=== PATIENT | male | born 1990 | race Two or more races ===

== ENCOUNTER 2016-12-12 11:39 | Emergency (ER) | payer OTHER ==
[2016-12-12] MEDS ORDERED: HYDROmorphone 1 MG/ML Syringe IM ONE (12:10)
[2016-12-12] MEDS ORDERED: Ondansetron 4 MG Tab.DIS PO ONE (12:10)
[2016-12-12] MEDS ORDERED: Ketorolac 30 MG/ML SDV IM ONE (12:10)
--- NOTE | 2016-12-12 12:18 | EDM.PDOC ---
ED HPI GENERAL MEDICAL PROBLEM - General Chief Complaint: Lower Extremity Injury/Pain Stated Complaint: RIGHT FOOT/ANKLE PAIN Time Seen by Provider: 12/12/16 12:00 Source of Information: Reports: Patient History Limitations: Reports: No Limitations - History of Present Illness INITIAL COMMENTS - FREE TEXT/NARRATIVE: Patient is a 26-year-old male who presents the ED complaining of pain to the right thigh. Patient states this past he was involved in an accident. Patient states he got his right leg (thigh) pinched between a water pump and a bobcat crushing his leg. He was flown to [place] and was evaluated in the ED. CT of the right upper leg as well as blood work was obtained. No fractures present. He was discharged home on narcotic medications and antiemetics. He's been taking Percocet 2 tabs every 6 hours as needed for pain. In addition was prescribed Keflex 500 mg 4 times a day for 7 days. He's been taking Zofran 1 tab every 6 hours for nausea and vomiting. States he ran out of the Percocet tabs since receiving only 20 with discharge. Pain has been constant waxing waning in intensity. He has been taking aspirin 300 mg twice a day for the pain with little relief. He did suffer an approximately 2 cm laceration to the anterior aspect of his distal thigh and also a 2 cm injury to the medial aspect of his thigh. The anterior laceration required 2 sutures. There is an extensive bruising present with firmness noted to the medial aspect of his leg. He states last night he took a bath and noted some bubbles coming from his wound site. Drainage was blood only. States there is no increased redness or purulent drainage today. There is some increased warmth noted to the site most likely related to the inflammatory process with the bruising. Increase in size noted. Denies any fever/chills, or red streaking up his leg, or any additional complaints. He has been utilizing crutches to ambulate. He is nonweightbearing. He presents to the ER today since he ran out of his pain medications. Right Leg Pain Score (Numeric/FACES): 8 - Related Data Allergies Allergy/AdvReac Type Severity Reaction Status Date / Time antihistamines Allergy Cannot Uncoded 12/12/16 11:47 Remember Home Meds: Home Meds Acetaminophen/oxyCODONE [Percocet 325-5 MG] 1 tab PO Q6H PRN #20 tablet [Rx] Cephalexin [Keflex] 500 mg PO BID 12/12/16 [History] Ondansetron [Zofran] 4 mg PO Q6H PRN #10 tablet 12/12/16 [Rx] Past Medical History - Past Health History Medical/Surgical History: Denies Medical/Surgical History Social & Family History - Tobacco Use Smoking Status *Q: Never Smoker Second Hand Smoke Exposure: No - Caffeine Use Caffeine Use: Reports: None - Recreational Drug Use Recreational Drug Use: No Review of Systems - Review of Systems Review Of Systems: ROS reveals no pertinent complaints other than HPI. ED EXAM, GENERAL - Physical Exam Exam: See Below Exam Limited By: No Limitations General Appearance: Alert, WD/WN, No Apparent Distress Ears: Hearing Grossly Normal Nose: Normal Inspection Throat/Mouth: Normal Voice, No Airway Compromise Neck: Normal Inspection, Supple Respiratory/Chest: No Respiratory Distress, No Accessory Muscle Use Cardiovascular: Normal Peripheral Pulses, Regular Rate, Rhythm Peripheral Pulses: 2+: Posterior Tibial (R) Extremities: Other (2 cm laceration to the anterior distal thigh with [address] present 2 cm laceration to the medial aspect of his distal aspect of his right thigh with scab present. Extensive bruising noted to the medial aspect of his thigh with firmness noted around the wound site. No drainage noted. Increased warmth noted. Mild increase in redness noted. Do not believe it 's infected at this point.) Neurological: Alert, Oriented, CN II-XII Intact, Normal Cognition, No Motor/ Sensory Deficits Psychiatric: Normal Affect, Normal Mood Skin Exam: Warm, Dry Course - Vital Signs Last Recorded V/S: Last Vital Signs Temp 98.4 F 12/12/16 11:48 Pulse 91 12/12/16 11:48 Resp 18 12/12/16 11:48 BP 123/83 12/12/16 11:48 Pulse Ox 98 12/12/16 11:48 - Orders/Labs/Meds Meds: Medications Discontinued Medications Generic Name Dose Route Start Last Admin Trade Name Freq PRN Reason Stop Dose Admin Hydromorphone HCl 1 mg 12/12/16 12:10 12/12/16 12:25 Dilaudid IM 12/12/16 12:11 1 mg ONETIME ONE Administration Ketorolac Tromethamine 30 mg 12/12/16 12:10 12/12/16 12:24 Toradol IM 12/12/16 12:11 30 mg ONETIME ONE Administration Ondansetron HCl 4 mg 12/12/16 12:10 12/12/16 12:24 Zofran Odt PO 12/12/16 12:11 4 mg ONETIME ONE Administration - Re-Assessments/Exams Free Text/Narrative Re-Assessment/Exam: For pain ordered Dilaudid 1 mg IM, Toradol 30 mg IM, and Zofran 4 mg by mouth. Will provide the patient prescription for pain medications. He'll continue on his other prescription medications as prescribed. Discharge instructions as documented. Departure - Departure Time of Disposition: 12:30 Disposition: Home, Self-Care 01 Condition: Good Clinical Impression: Crushing injury of right thigh Qualifiers: Encounter type: subsequent encounter Qualified Code(s): S77.11XD - Crushing injury of right thigh, subsequent encounter Laceration of right thigh Qualifiers: Encounter type: subsequent encounter Qualified Code(s): S71.111D - Laceration without foreign body, right thigh, subsequent encounter - Discharge Information Prescriptions: Acetaminophen/oxyCODONE [Percocet 325-5 MG] 1 tab PO Q6H PRN #20 tablet PRN Reason: Pain Ondansetron [Zofran] 4 mg PO Q6H PRN #10 tablet PRN Reason: Nausea Instructions: Crutch Use, [id number], Pain Medicine Instructions, Easy-to- Read Referrals: [facility] [Primary Care Provider] - Forms: ED Department Discharge Additional Instructions: As discussed continue be nonweightbearing utilize crutches to ambulate. Elevate the affected leg when able to reduce any swelling and pain. Utilize warm compresses and ice in alternating fashion throughout the day. Take Aleve 1-2 tablets twice a day or ibuprofen 600 mg every 6 hours as needed. Take the Percocet tabs as prescribed for severe pain. Take Zofran as needed one tab every 6 hours for nausea. Push the fluids. Eat a balanced diet. Follow-up with orthopedic surgeon when able in the next week or 2 for reevaluation. Return to the ED if you develop any new or worsening symptoms.
== END 2016-12-12 12:30 | disposition home or self-care (01) ==
LOC: JD.ED 11:39
DX: S71.111D Laceration without foreign body, right thigh, subsequent encounter (principal); S77.11XD Crushing injury of right thigh, subsequent encounter; Z88.8 Allergy status to other drugs, medicaments and biological substances; X58.XXXD Exposure to other specified factors, subsequent encounter
CPT/HCPCS: 96372; 99283; A9270; J1170; J1885

== ENCOUNTER 2016-12-20 14:47 | Emergency (ER) | payer OTHER ==
[2016-12-20] MEDS ORDERED: Sodium Chloride 0.9% 10 ML Syringe FLUSH PRN (15:17)
[2016-12-20] MEDS ORDERED: HYDROmorphone 0.5 MG/0.5 ML Syringe IVPUSH ONE (15:17)
[2016-12-20] MEDS ORDERED: Sodium Chloride 0.9% 10 ML Syringe FLUSH ONE (15:26)
[2016-12-20] MEDS ORDERED: Iopamidol 612 MG/ML 150 ML Bottle IVPUSH ONE (15:26)
[2016-12-20] MEDS ORDERED: Sodium Chloride 0.9% 100 ML IV SCH (15:30)
--- NOTE | 2016-12-20 15:48 | EDM.PDOC ---
ED HPI GENERAL MEDICAL PROBLEM - General Chief Complaint: Lower Extremity Injury/Pain Stated Complaint: R LEG INJURY Time Seen by Provider: 12/20/16 15:48 Source of Information: Reports: Patient History Limitations: Reports: No Limitations - History of Present Illness INITIAL COMMENTS - FREE TEXT/NARRATIVE: 26-year-old male presents for evaluation and treatment of an injury to the right medial mid to distal thigh. Original injury occurred on 12-08-16. Patient was at work. He was pinned in between a bobcat and a water pump. He works in [employer]. Reports that he was flown to [place] ED. A CT of the right leg and lab work were obtained. No fractures are found. He was discharged home with narcotic pain medication and Zofran. He was also prescribed Keflex. Reports since being seen continues to have significant pain to the area. He was seen by occupational health today and found to have a large hematoma versus abscess to the area. He has been taking the Keflex but does not feel it is working. He is currently out of pain medication has not taken anything for 3 days. Currently reporting pain to the right medial distal leg with associated numbness over the area. He has not had any fevers, chills, nausea or vomiting. Patient has been utilizing crutches and has been off of work since the accident. Onset: Other (injury occurred on 12-08-16) Location: Reports: Lower Extremity, Right Right Upper Leg Pain Score (Numeric/FACES): 9 - Related Data Allergies Allergy/AdvReac Type Severity Reaction Status Date / Time antihistamines Allergy Cannot Uncoded 12/20/16 14:59 Remember Home Meds: Home Meds Cephalexin [Keflex] 500 mg PO TID 12/12/16 [History] Doxycycline [Vibramycin] 100 mg PO Q12HR #20 cap 12/20/16 [Rx] oxyCODONE 5 mg PO Q4H PRN #20 tablet 12/20/16 [Rx] Past Medical History - Past Health History Medical/Surgical History: Denies Medical/Surgical History Social & Family History - Tobacco Use Smoking Status *Q: Never Smoker Second Hand Smoke Exposure: No - Caffeine Use Caffeine Use: Reports: None - Recreational Drug Use Recreational Drug Use: No Review of Systems - Review of Systems Review Of Systems: See Below Constitutional: Denies: Chills, Fever GI/Abdominal: Denies: Nausea, Vomiting Musculoskeletal: Reports: Leg Pain (right medial mid to lower thigh) Skin: Reports: Wound (3 open fuentes surrounded by a large firm area, likely a hematoma) Neurological: Reports: Numbness (to the suspected hematoma) ED EXAM, GENERAL - Physical Exam Exam: See Below Exam Limited By: No Limitations General Appearance: Alert, WD/WN, No Apparent Distress Respiratory/Chest: No Respiratory Distress Cardiovascular: Normal Peripheral Pulses, Regular Rate, Rhythm Peripheral Pulses: 2+: Posterior Tibial (L), Posterior Tibial (R), Dorsalis Pedis (L), Dorsalis Pedis (R) Extremities: Other (18cm x 10 cm firm, swollen area suspected to be a hematoma with surrounding bruising; 3 clsoed superficial areas to the right medial thigh) Neurological: Alert, Oriented, Normal Cognition Psychiatric: Normal Affect, Normal Mood Skin Exam: Warm, Dry, Normal Color, Ecchymosis, Increased Warmth. No: Erythema Course - Vital Signs Last Recorded V/S: Last Vital Signs Temp 36.7 C 12/20/16 15:00 Pulse 93 12/20/16 15:00 Resp 16 12/20/16 15:00 BP 129/87 12/20/16 15:00 Pulse Ox 98 12/20/16 15:00 - Orders/Labs/Meds Orders: Active Orders 24 hr Category Date Time Status Peripheral IV Care [RC] . DIRECTED Care 12/20/16 15:17 Active CULTURE WOUND [RM] Stat Lab 12/20/16 17:13 Uncollected Piperacillin/Tazobactam [Zosyn] 3.375 gm Med 12/20/16 16:07 Active Sodium Chloride 0.9% [Normal Saline] 100 ml IV NOW Sodium Chloride 0.9% [Normal Saline] 100 ml Med 12/20/16 15:30 Active IV ASDIRECTED Sodium Chloride 0.9% [Saline Flush] Med 12/20/16 15:17 Active 10 ml FLUSH ASDIRECTED PRN Peripheral IV Insertion Adult [OM.PC] Routine Oth 12/20/16 15:17 Ordered Medication Orders Sodium Chloride (Normal Saline) 100 mls @ 60 mls/hr IV ASDIRECTED REPLACED BY [facility] Last Admin: 12/20/16 15:42 Dose: 60 mls/hr Piperacillin Sod/Tazobactam (Sod 3.375 gm/ Sodium Chloride) 100 mls @ 25 mls/ hr IV NOW STA Stop: 12/20/16 20:06 Sodium Chloride (Saline Flush) 10 ml FLUSH ASDIRECTED PRN PRN Reason: Keep Vein Open Last Admin: 12/20/16 16:11 Dose: 10 ml Labs: Laboratory Tests 12/20/16 12/20/16 Range/Units 16:24 16:24 WBC 8.66 (4.23-9.07) K/mm3 RBC 4.80 (4.63-6.08) M/mm3 Hgb 14.1 (13.7-17.5) gm/L Hct 41.2 (40.1-51.0) % MCV 85.8 (79.0-92.2) fl MCH 29.4 (25.7-32.2) pg MCHC 34.2 (32.2-35.5) g/dl RDW Std Deviation 39.4 (35.1-43.9) fL Plt Count 366 H (163-337) K/mm3 MPV 9.3 L (9.4-12.3) fl Neutrophils % (Manual) 69 H (40-60) % Band Neutrophils % 0 (0-10) % Lymphocytes % (Manual) 21 (20-40) % Atypical Lymphs % 0 % Monocytes % (Manual) 9 (2-10) % Eosinophils % (Manual) 1 (0.8-7.0) % Basophils % (Manual) 0 L (0.2-1.2) Platelet Estimate Adequate Plt Morphology Comment Normal RBC Morph Comment Normal Sodium 140 (136-145) mEq/L Potassium 4.2 (3.5-5.1) mEq/L Chloride 102 (98-107) mEq/L Carbon Dioxide 27 (21-32) mEq/L Anion Gap 15.2 H (5-15) BUN 17 (7-18) mg/dL Creatinine 0.8 (0.7-1.3) mg/dL Est Cr Clr Drug Dosing 127.38 mL/min Estimated GFR (MDRD) > 60 (>60) mL/min BUN/Creatinine Ratio 21.3 H (14-18) Glucose 105 (74-106) mg/dL Calcium 9.4 (8.5-10.1) mg/dL Total Bilirubin 0.6 (0.2-1.0) mg/dL AST 23 (15-37) U/L ALT 49 (16-63) U/L Alkaline Phosphatase 81 (46-116) U/L C-Reactive Protein 3.3 H* (<1.0) mg/dL Total Protein 7.8 (6.4-8.2) g/dl Albumin 3.7 (3.4-5.0) g/dl Globulin 4.1 gm/dL Albumin/Globulin Ratio 0.9 L (1-2) Meds: Medications Generic Name Dose Route Start Last Admin Trade Name Freq PRN Reason Stop Dose Admin Sodium Chloride 100 mls @ 60 mls/hr 12/20/16 15:30 12/20/16 15:42 Normal Saline IV 60 mls/hr ASDIRECTED IFEANYI Administration Piperacillin Sod/Tazobactam 100 mls @ 25 mls/hr 12/20/16 16:07 Sod 3.375 gm/ Sodium Chloride IV 12/20/16 20:06 NOW STA Sodium Chloride 10 ml 12/20/16 15:17 12/20/16 16:11 Saline Flush FLUSH 10 ml ASDIRECTED PRN Administration Keep Vein Open Discontinued Medications Generic Name Dose Route Start Last Admin Trade Name Freq PRN Reason Stop Dose Admin Hydromorphone HCl 0.5 mg 12/20/16 15:17 12/20/16 16:08 Dilaudid IVPUSH 12/20/16 15:18 0.5 mg ONETIME ONE Administration Hydromorphone HCl 1 mg 12/20/16 16:48 12/20/16 17:23 Dilaudid IVPUSH 12/20/16 16:49 1 mg ONETIME ONE Administration Clindamycin Phosphate 900 mg/ 106 mls @ 100 mls/hr 12/20/16 16:08 12/20/16 16 :27 Sodium Chloride IV 12/20/16 17:11 100 mls/hr ONETIME ONE Administration Iopamidol 125 ml 12/20/16 15:26 12/20/16 15:42 Isovue-300 (61%) IVPUSH 12/20/16 15:27 125 ml ONETIME ONE Administration Sodium Chloride 10 ml 12/20/16 15:26 12/20/16 15:42 Saline Flush FLUSH 12/20/16 15:27 10 ml ONETIME ONE Administration - Radiology Interpretation Free Text/Narrative:: CT of the right thigh with IV contrast impression per Dr. Sumner 1. Soft tissue air with fair amount of fluid been seen within the medial distal thigh. Fluid presumably represents blood. 2. Low-density within and a portion of the posterior aspect of the vastus medialis muscle suggesting partial muscle disruption. 3. No additional abnormalities seen. CT Results Date: 12/20/16 - Re-Assessments/Exams Free Text/Narrative Re-Assessment/Exam: 12/20/16 17:36 Labs have returned. With blood cell count is within normal limits. CRP is mildly elevated 3.3. Case discussed with Dr. Gautam, orthopedics on-call. Recommended we keep him on the Keflex. He should be doing warm compresses to the area. Nonweightbearing. Continue on the Keflex and he will see him tomorrow in office. I discussed the lab results, CT results and my conversation with Dr. Gautam with the patient. I will add on doxycycline for additional coverage to ensure he is covered for MRSA. Discharge instructions as documented. Departure - Departure Time of Disposition: 18:00 Disposition: Home, Self-Care 01 Condition: Fair Clinical Impression: Hematoma of lower extremity - Discharge Information Prescriptions: Doxycycline [Vibramycin] 100 mg PO Q12HR #20 cap oxyCODONE 5 mg PO Q4H PRN #20 tablet PRN Reason: Pain Referrals: PCP,None [Primary Care Provider] - Aidan Lepe MD [Physician] - Forms: ED Department Discharge Additional Instructions: you were given medication in the ER in the ER that can affect your ability to drive and operate machinery. Do not drive or operate machinery within 12 hours of taking prescription narcotic pain medication. Continue on the Keflex as prescribed. Start doxycycline 1 tab twice a day for 10 days. [id number] ibuprofen for pain relief. May take oxycodone 1-2 tabs every 4- 6 hours as needed for severe pain. Do not drive or operate machinery every 12 hours taking oxycodone. oxycodone can be habit forming, I recommend you take as few as needed to control your pain. Utilize heat to the area. Utilize your crutches. Rest. Keep the foot elevated. Follow-up with Dr. Gautam tomorrow in clinic. Call [phone] at 8am to see what time you should come in tomorrow. inform his staff that you were told to be seen in clinic tomorrow. Please return to the ER if your symptoms change or worsen. - My Orders Last 24 Hours: My Active Orders 12/20/16 15:17 Peripheral IV Care [RC] . DIRECTED Sodium Chloride 0.9% [Saline Flush] 10 ml FLUSH ASDIRECTED PRN Peripheral IV Insertion Adult [OM.PC] Routine 12/20/16 15:30 Sodium Chloride 0.9% [Normal Saline] 100 ml IV ASDIRECTED 12/20/16 16:07 Piperacillin/Tazobactam [Zosyn] 3.375 gm Sodium Chloride 0.9% [Normal Saline] 100 ml IV NOW 12/20/16 17:13 CULTURE WOUND [RM] Stat - Assessment/Plan Last 24 Hours: My Active Orders 12/20/16 15:17 Peripheral IV Care [RC] . DIRECTED Sodium Chloride 0.9% [Saline Flush] 10 ml FLUSH ASDIRECTED PRN Peripheral IV Insertion Adult [OM.PC] Routine 12/20/16 15:30 Sodium Chloride 0.9% [Normal Saline] 100 ml IV ASDIRECTED 12/20/16 16:07 Piperacillin/Tazobactam [Zosyn] 3.375 gm Sodium Chloride 0.9% [Normal Saline] 100 ml IV NOW 12/20/16 17:13 CULTURE WOUND [RM] Stat
[2016-12-20] MEDS ORDERED: Piperacillin/Tazobactam 3.375 GM in Sodium Chloride 0.9% 100 ML IV STA (16:07)
[2016-12-20] MEDS ORDERED: Clindamycin Phosphate 900 MG in Sodium Chloride 0.9% 100 ML IV ONE (16:08)
--- NOTE | 2016-12-20 16:36 | CT ---
CT right thigh Technique: Multiple axial sections were obtained through the right side. Intravenous contrast was utilized. Findings: Soft tissue air identified within the anterior distal thigh. There is low density fluid material being seen at this level of the air as well as superiorly within the medial thigh. There appears to be some disruption of the vastus medialis muscle with small amount of low density material seen posteriorly and medially. Skin thickening is seen medially. No bony abnormality is seen. No contrast extravasation is seen. Impression: 1. Soft tissue air with fair amount of fluid being seen within the medial and distal thigh. Fluid presumably represents blood. 2. Low density within a portion of the posterior aspect of the vastus medialis muscle suggesting partial muscle disruption. 3. No additional abnormality is seen. Diagnostic code #5
[2016-12-20] MEDS ORDERED: HYDROmorphone 1 MG/ML Syringe IVPUSH ONE (16:48)
== END 2016-12-20 18:28 | disposition home or self-care (01) ==
LOC: JD.ED 14:47
DX: S80.11XA Contusion of right lower leg, initial encounter (principal); Z88.8 Allergy status to other drugs, medicaments and biological substances; W23.0XXA Caught, crushed, jammed, or pinched between moving objects, initial encounter; Y92.69 Other specified industrial and construction area as the place of occurrence of the external cause; Y99.0 Civilian activity done for income or pay
CPT/HCPCS: 36415; 73701; 80053; 85025; 86140; 87070; 96365; 96375; 96376; 99284; J1170; J7030; J7050; Q9967

== ENCOUNTER 2018-08-14 07:18 | Inpatient (IN) | payer OTHER ==
[2018-08-14] MEDS ORDERED: Sodium Chloride 0.9% 10 ML Syringe FLUSH PRN (07:44)
[2018-08-14] MEDS ORDERED: Acetaminophen 325 MG Tab PO ONE ×2 (07:45→10:15)
[2018-08-14] MEDS ORDERED: Ketorolac 30 MG/ML SDV IVPUSH SCH (07:45)
[2018-08-14] MEDS ORDERED: Doxycycline 100 MG in Sodium Chloride 0.9% 100 ML IV ONE (07:49)
--- NOTE | 2018-08-14 07:49 | EDM.PDOC ---
ED HPI GENERAL MEDICAL PROBLEM - General Chief Complaint: Lower Extremity Injury/Pain Stated Complaint: Rt leg pain Time Seen by Provider: 08/14/18 07:30 Source of Information: Reports: Patient, Family (spouse) History Limitations: Reports: No Limitations - History of Present Illness INITIAL COMMENTS - FREE TEXT/NARRATIVE: 27-year-old male presents to the ED with right lower extremity pain. He states currently having a good deal of pain in his right inguinal area that radiates down the medial aspect of his right leg and calf to the foot. Patient has been on the road for the last 2 days driving down from [facility] back to [place]. Patient had a crush type injury to the medial aspect of his right distal thigh about 20 months ago which is caused chronic difficulties walking and ambulating due to constant pain in the right lower extremity. I.e. reflex synthetic dystrophy. He has an obvious muscle loss in the distribution of the medial hamstrings and the medial quadriceps musculature. She states she has chronic pain in his right inguinal area and marked difficulties walking up stairs. He has been to physiotherapy and occupational health and has been released to work with limited duties. 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 A crush injury occurred when a bobcat traveling about 2 miles an hour slammed into his right leg with leg up against another metal object causing crush type injury. There was an open laceration across the anterior aspect of his distal thigh that required suture closure. The right lower leg has become infected and at least once if not twice in the past. Currently has fever and chills. Temperature was 101.2 this morning and then as high as 104 recorded by his before coming to the ED. He has not had any Tylenol or Motrin for fever relief. Temperature here is 37.6. Patient does feel warmer than that on palpation. He feels chilled while in the ED. Asking for blankets to keep warm. Onset: Gradual Onset Date: 08/13/18 (Just spent 32 hours driving back from [facility]. Noted some mild discomfort in the medial aspect of his right calf yesterday morning but it is markedly worse with increased erythema and pain proximal medial calf this morning. He also recognized fever and chills yesterday.) Duration: Hour(s):, Getting Worse Location: Reports: Back, Lower Extremity, Right (Right lower extremity especially inguinal area and marked pain to palpation proximal medial right calf.) Quality: Reports: Ache, Burning, Throbbing Severity: Moderate (710) Improves with: Reports: None Worsens with: Reports: Other (Worse with movement and touch can hardly weight- bear on the right side today) Context: Reports: Trauma (Remote trauma 20 months ago to the distal aspect of his right thigh with crush injury and loss of muscle loss to the medial hamstrings and medial quadriceps and suspect femoral nerve injuries. Reflex sympathetic dystrophy type pain). Denies: Activity, Exercise, Lifting, Sick Contact Associated Symptoms: Reports: Fever/Chills (Since yesterday afternoon), Loss of Appetite, Malaise. Denies: Confusion, Chest Pain, Cough, cough w sputum Treatments INSTITUTIONAL CUSTODIAN: Reports: Other (see below) (1.) Right Groin Pain Score (Numeric/FACES): 3 - Related Data Allergies Allergy/AdvReac Type Severity Reaction Status Date / Time antihistamines Allergy Cannot Uncoded 08/14/18 12:19 Remember Home Meds: Home Meds . [No Known Home Meds] 08/14/18 [History] Past Medical History - Past Health History Medical/Surgical History: Denies Medical/Surgical History Musculoskeletal History: Reports: Other (See Below) Other Musculoskeletal History: reports a crest injury Social & Family History - Family History Family Medical History: Noncontributory - Tobacco Use Smoking Status *Q: Never Smoker - Caffeine Use Caffeine Use: Reports: None - Recreational Drug Use Recreational Drug Use: No - Living Situation & Occupation Living situation: Reports: Occupation: Employed Review of Systems - Review of Systems Review Of Systems: See Below Constitutional: Reports: Chills, Fever, Weakness Eyes: Reports: No Symptoms Ears: Reports: No Symptoms Nose: Reports: No Symptoms Mouth/Throat: Reports: No Symptoms Respiratory: Reports: No Symptoms Cardiovascular: Reports: No Symptoms GI/Abdominal: Reports: Other. Denies: Nausea (Pain right inguinal area.), Vomiting Genitourinary: Reports: No Symptoms Musculoskeletal: Reports: Back Pain (Pain right lower back which seems to radiate into the buttock and down the right leg.), Leg Pain (Pain right inguinal area and medial thigh and calf.) Skin: Reports: Erythema (Increased erythema increased warmth proximal medial right calf compatible with cellulitis) Neurological: Reports: Difficulty Walking (Chronic difficulty walking made worse by current infection or cellulitis right leg in the calf and severe pain in the groin.) Psychiatric: Reports: No Symptoms ED EXAM, GENERAL - Physical Exam Exam: See Below Exam Limited By: No Limitations General Appearance: Alert, WD/WN, Mild Distress, Other (Patient is febrile on exam with a resting heart rate of 120/m. O2 sats are 96% on room air. BP is 120 /77) Respiratory/Chest: No Respiratory Distress, Lungs Clear, Normal Breath Sounds, No Accessory Muscle Use Cardiovascular: Normal Peripheral Pulses, No Edema, No Gallop (resting tachycardia of 1 20/m), No Murmur, No Rub, Tachycardia Peripheral Pulses: 2+: Posterior Tibial (L), Posterior Tibial (R), Dorsalis Pedis (L), Dorsalis Pedis (R) GI/Abdominal: Normal Bowel Sounds, Soft, Tender (Patient is very tender along the distribution of the inguinal ligament area with no palpable inguinal adenopathy. I stood him up to assess him for a hernia with invagination of the right scrotum he has a cough impulse but no definitive hernia identified. He has significant pain at the insertion site of the iliopsoas tendon and the abductor lara tendon to a lesser extent.). No: Abnormal Bowel Sounds (Male) Exam: Other (No testicular tenderness) Back Exam: Decreased Range of Motion, Other (Marked pain and tenderness over the C4-C5 facet joints on the right side with overlying muscle spasm. Firm palpation over the C5-S1 level won't aspirate the patient to the floor. He cannot raise his leg off the gurney on his own volition. Limited by pain. I can raise the leg and he has full internal and external rotation of the hip joint without pain and no evidence of a septic joint. Pain is coming from the overlying muscles and tendons I believe the iliopsoas primarily in the inguinal area.) Extremities: Increased Warmth (Patient has a area of increased warmth and tenderness medial proximal right calf that takes up half of the leg. This area is very tender to touch. There is no obvious swelling or open areas or purulent drainage. He seems to be hypersensitive along the medial aspect of the thigh to palpation. Squeezing any of the medial musculature of the right thigh causes exquisite pain.) Neurological: Alert, Oriented, CN II-XII Intact, Normal Cognition, Other ( Calvarium walk) Psychiatric: Normal Affect, Normal Mood Skin Exam: Warm, Dry, Intact, Other (Cellulitis rash medial aspect of the right calf.) Course - Vital Signs Last Recorded V/S: Last Vital Signs Temp 37.6 C 08/14/18 07:26 Pulse 120 H 08/14/18 07:26 Resp 16 08/14/18 07:26 BP 120/77 08/14/18 07:26 Pulse Ox 96 08/14/18 07:26 - Orders/Labs/Meds Orders: Active Orders 24 hr Category Date Time Status Peripheral IV Care [RC] Q2HR Care 08/14/18 07:45 Active CULTURE BLOOD [BC] Stat Lab 08/14/18 08:13 Received CULTURE BLOOD [BC] Stat Lab 08/14/18 08:25 Received Ketorolac [Toradol] Med 08/14/18 07:45 Active 30 mg IVPUSH ONETIME Sodium Chloride 0.9% [Saline Flush] Med 08/14/18 07:44 Active 10 ml FLUSH ASDIRECTED PRN Blood Culture x2 Reflex Set [OM.PC] Stat Oth 08/14/18 07:45 Ordered Peripheral IV Insertion Adult [OM.PC] Stat Oth 08/14/18 07:45 Ordered Medication Orders Ketorolac Tromethamine (Toradol) 30 mg IVPUSH ONETIME [facility] Last Admin: 08/14/18 07:58 Dose: 30 mg Sodium Chloride (Saline Flush) 10 ml FLUSH ASDIRECTED PRN PRN Reason: Keep Vein Open Last Admin: 08/14/18 08:00 Dose: 10 ml Labs: Laboratory Tests 08/14/18 08/14/18 08/14/18 Range/Units 07:55 07:55 07:55 WBC 18.53 H (4.23-9.07) K/mm3 RBC 5.35 (4.63-6.08) M/mm3 Hgb 15.8 D (13.7-17.5) gm/L Hct 46.2 (40.1-51.0) % MCV 86.4 (79.0-92.2) fl MCH 29.5 (25.7-32.2) pg MCHC 34.2 (32.2-35.5) g/dl RDW Std Deviation 40.8 (35.1-43.9) fL Plt Count 259 D (163-337) K/mm3 MPV 9.4 (9.4-12.3) fl Neutrophils % (Manual) 78 H (40-60) % Band Neutrophils % 2 (0-10) % Lymphocytes % (Manual) 13 L (20-40) % Atypical Lymphs % 0 % Monocytes % (Manual) 7 (2-10) % Eosinophils % (Manual) 0 L (0.8-7.0) % Basophils % (Manual) 0 L (0.2-1.2) Platelet Estimate Adequate Plt Morphology Comment Normal RBC Morph Comment Normal ESR 10 (0-15) mm/hr Sodium 137 (136-145) mEq/L Potassium 4.1 (3.5-5.1) mEq/L Chloride 102 (98-107) mEq/L Carbon Dioxide 25 (21-32) mEq/L Anion Gap 14.1 (5-15) BUN 17 (7-18) mg/dL Creatinine 1.1 (0.7-1.3) mg/dL Est Cr Clr Drug Dosing 91.83 mL/min Estimated GFR (MDRD) > 60 (>60) mL/min BUN/Creatinine Ratio 15.5 (14-18) Glucose 117 H (74-106) mg/dL Lactic Acid (0.4-2.0) mmol/L Calcium 9.5 (8.5-10.1) mg/dL Total Bilirubin 0.7 (0.2-1.0) mg/dL AST 16 (15-37) U/L ALT 35 (16-63) U/L Alkaline Phosphatase 76 (46-116) U/L Creatine Kinase (39-308) U/L C-Reactive Protein 2.8 H* (<1.0) mg/dL Total Protein 7.7 (6.4-8.2) g/dl Albumin 4.1 (3.4-5.0) g/dl Globulin 3.6 gm/dL Albumin/Globulin Ratio 1.1 (1-2) 08/14/18 08/14/18 Range/Units 07:55 08:25 WBC (4.23-9.07) K/mm3 RBC (4.63-6.08) M/mm3 Hgb (13.7-17.5) gm/L Hct (40.1-51.0) % MCV (79.0-92.2) fl MCH (25.7-32.2) pg MCHC (32.2-35.5) g/dl RDW Std Deviation (35.1-43.9) fL Plt Count (163-337) K/mm3 MPV (9.4-12.3) fl Neutrophils % (Manual) (40-60) % Band Neutrophils % (0-10) % Lymphocytes % (Manual) (20-40) % Atypical Lymphs % % Monocytes % (Manual) (2-10) % Eosinophils % (Manual) (0.8-7.0) % Basophils % (Manual) (0.2-1.2) Platelet Estimate Plt Morphology Comment RBC Morph Comment ESR (0-15) mm/hr Sodium (136-145) mEq/L Potassium (3.5-5.1) mEq/L Chloride (98-107) mEq/L Carbon Dioxide (21-32) mEq/L Anion Gap (5-15) BUN (7-18) mg/dL Creatinine (0.7-1.3) mg/dL Est Cr Clr Drug Dosing mL/min Estimated GFR (MDRD) (>60) mL/min BUN/Creatinine Ratio (14-18) Glucose (74-106) mg/dL Lactic Acid 2.0 (0.4-2.0) mmol/L Calcium (8.5-10.1) mg/dL Total Bilirubin (0.2-1.0) mg/dL AST (15-37) U/L ALT (16-63) U/L Alkaline Phosphatase (46-116) U/L Creatine Kinase 80 (39-308) U/L C-Reactive Protein (<1.0) mg/dL Total Protein (6.4-8.2) g/dl Albumin (3.4-5.0) g/dl Globulin gm/dL Albumin/Globulin Ratio (1-2) Meds: Medications Generic Name Dose Route Start Last Admin Trade Name Freq PRN Reason Stop Dose Admin Ketorolac Tromethamine 30 mg 08/14/18 07:45 08/14/18 07:58 Toradol IVPUSH 30 mg ONETIME IFEANYI Administration Sodium Chloride 10 ml 08/14/18 07:44 08/14/18 08:00 Saline Flush FLUSH 10 ml ASDIRECTED PRN Administration Keep Vein Open Discontinued Medications Generic Name Dose Route Start Last Admin Trade Name Sophia PRN Reason Stop Dose Admin Acetaminophen 975 mg 08/14/18 07:45 08/14/18 07:57 Tylenol PO 08/14/18 07:46 975 mg NOW ONE Administration Acetaminophen 650 mg 08/14/18 10:15 08/14/18 10:33 Tylenol PO 08/14/18 10:16 650 mg NOW ONE Administration Hydromorphone HCl 1 mg 08/14/18 09:25 08/14/18 09:37 Dilaudid IVPUSH 08/14/18 09:26 1 mg ONETIME ONE Administration Doxycycline Hyclate 100 mg/ 100 mls @ 100 mls/hr 08/14/18 07:49 08/14/18 07: 57 Sodium Chloride IV 08/14/18 08:48 100 mls/hr ONETIME ONE Administration Clindamycin Phosphate 900 mg/ 50 mls @ 100 mls/hr 08/14/18 08:08 08/14/18 09: 22 Premix IV 08/14/18 08:37 100 mls/hr ONETIME ONE Administration Metoclopramide HCl 7.5 mg 08/14/18 09:25 08/14/18 09:37 Reglan IVPUSH 08/14/18 09:26 7.5 mg ONETIME ONE Administration - Radiology Interpretation Free Text/Narrative:: 27-year-old male presents to the ED with acute on chronic pain syndrome right lower extremity. Patient suffered a crush type injury 20 months ago in the workplace with a bobcat rolling down a hill at 2 miles an hour with the bucket striking him in the right medial distal thigh with muscle disruption in the distribution of the medial hamstrings and quadriceps musculature. There was also an open wound across the anterior aspect of the distal thigh that required suture repair at that time. 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 Patient was taken to [facility] in [place] for initial trauma. He remembers having probably a CT angiogram to make sure there is no compromise on supply to his right lower extremity. He doesn't remember ever having an MRI of his right lower extremity. Patient has been seen by Dr. Caban--orthopedic surgeon at least once in the past. He is being followed through occupational health and safety clinic by Dr. Garibay. He is also been through a physiotherapy program and this is been curtailed as there is nothing further they can do for him. History suggests that he has chronic pain in his right inguinal area and right medial thigh compatible with neurological injury and clinically has reflex sympathetic dystrophy. He has had infection in the leg at least once in the past. He presents once again with fever chills of one day duration and evidence of cellulitis left lower extremity proximal medial calf. Plan septic workup will be done. He will be given doxepin 100 mg IV and clindamycin [address] of his lower back will be obtained as well as pelvis. His pain is in the distribution of the iliopsoas muscle literature and 10 at present and then medial right calf. - Re-Assessments/Exams Free Text/Narrative Re-Assessment/Exam: 08/14/18 09:15 Labs are back. Total white count is markedly elevated at 18.53 with a left shift of 70% neutrophils and 2% bands. Hemoglobin is 15.8 with hematocrit of 46.2. Platelet count is 259,000. Sodium 137 with potassium of 4.1. Chloride 102 with a bicarbonate of 25. Anion gap is normal at 14.1. BUNs 17. Creatinine is 1.1 with GFR greater than 60. Glucose 117 with a calcium of 9.5. Liver function normal C-reactive protein mildly elevated at 2.8. Total protein is 7.7 albumin fraction 4.1. 08/14/18 09:25 patient is experiencing mild nausea and still having significant pain in spite of the Toradol IV. Will therefore give him Reglan 7.5 mg IV and Dilaudid 1 mg IV for pain relief. CT reports are now back. The CT of the lumbar spine reveals no abnormalities of L1 to L4 vertebral. At the L5-S1 level there is a disc herniation posterior laterally at L5-S1 to the right of the midline touching the right S1 nerve root. No central canal stenosis or neural foraminal stenosis is seen. Slight posterior osteophytes are also noted to the right of the midline. At T12-L1 level posterior disc is minimally narrowed. Posterior disc is preserved. No central canal stenosis or neural foraminal stenosis is seen. On CT of the pelvis there are some degenerative changes noted at the L5-S1 as described on the lumbar spine CT but nothing further identified in the right inguinal area and particularly no signs of inguinal hernia. Omental on adenopathy in the right groin. Awaiting further labs such as lactic acid and CPK and sedimentation rate. 08/14/18 09:50 Further labs are now available. Sedimentation rate is 10. Lactic acid it is 2.0. Total CPK is normal at 80. Therefore no convincing laboratory evidence of necrotizing fasciitis. He did vomit once while in the ED. He thinks the Tylenol may have come back up. Will repeat the Tylenol 975 mg in about 10 minutes time once the Reglan since to be effective at this point time I will arrange admission to the hospital since it's unclear whether he can keep down the antibiotics. Believe that he needs further investigation by way of MRI of his lumbar spine to identify whether there is significant disc herniation causing nerve root entrapment as part of his right leg pain syndrome. Also MRI of his entire right thigh is probably indicated if he has not been done in the past identify soft tissue muscle and nerve damage. Will likely need permission from either the [place] or work force safety as injury to his right lower extremity was work-related 20 months ago. Will be treated for suspect MRSA infection since he's had an infection in the leg before. Suggest continuing doxycycline orally for about a month after leaving hospital to try and clear up MRSA in his skin or subcutaneous soft tissues since he's had recurrent infections. Will discuss case with reclamation engineer hospitalist Dr. Poe with a view to admission to the hospital. 08/14/18 10:[address] Poe -hospitalist and he has accepted the patient to the med surgery floor on telemetry. Repeated Tylenol 650 mg by mouth as it is felt that he probably vomited up the initial 975 mg provided to him for fever relief. 08/14/18 11:05: Patient reports to the nurses that he vomited up the 650 mg of Tylenol given to him for fever relief as well. Departure - Departure Time of Disposition: 12:00 Disposition: Admitted As Inpatient 67 Condition: Fair Clinical Impression: Cellulitis of right lower leg, Chronic pain of right inguinal region, Herniation of intervertebral disc between L5 and S1, Reflex sympathetic dystrophy of right leg, Acute febrile illness, Nausea and vomiting in adult patient - Discharge Information *PRESCRIPTION DRUG MONITORING PROGRAM REVIEWED*: No *COPY OF PRESCRIPTION DRUG MONITORING REPORT IN PATIENT MATHEW: No - My Orders Last 24 Hours: My Active Orders 08/14/18 07:44 Sodium Chloride 0.9% [Saline Flush] 10 ml FLUSH ASDIRECTED PRN 08/14/18 07:45 Peripheral IV Care [RC] Q2HR Ketorolac [Toradol] 30 mg IVPUSH ONETIME Blood Culture x2 Reflex Set [OM.PC] Stat Peripheral IV Insertion Adult [OM.PC] Stat 08/14/18 08:13 CULTURE BLOOD [BC] Stat 08/14/18 08:25 CULTURE BLOOD [BC] Stat - Assessment/Plan Last 24 Hours: My Active Orders 08/14/18 07:44 Sodium Chloride 0.9% [Saline Flush] 10 ml FLUSH ASDIRECTED PRN 08/14/18 07:45 Peripheral IV Care [RC] Q2HR Ketorolac [Toradol] 30 mg IVPUSH ONETIME Blood Culture x2 Reflex Set [OM.PC] Stat Peripheral IV Insertion Adult [OM.PC] Stat 08/14/18 08:13 CULTURE BLOOD [BC] Stat 08/14/18 08:25 CULTURE BLOOD [BC] Stat
[2018-08-14] MEDS ORDERED: Clindamycin Phosphate in D5W 900 MG in Premix Bag 1 BAG IV ONE ×2 (08:08)
--- NOTE | 2018-08-14 09:15 | CT ---
CT lumbar spine Technique: Multiple axial sections were obtained from the mid T12 vertebral body inferiorly through the L5-S1 disc. Reconstructed sagittal and coronal images were reviewed. Comparison: No prior lumbar spine imaging is available. Findings: T12-L1: Posterior disc is minimally narrowed. Posterior disc is preserved. No central canal stenosis or neural foraminal stenosis is seen. L1-L2: Posterior disc is preserved. No central canal stenosis or neural foraminal stenosis is seen. L2-L3: Posterior disc is preserved. No central canal stenosis or neural foraminal stenosis is seen. L3-L4: Posterior disc is preserved. No central canal stenosis or neural foraminal stenosis is seen. L4-L5: Posterior disc is preserved. No central canal stenosis or neural foraminal stenosis is seen. L5-S1: Probable small disc herniation posterolaterally at L5-S1 to the right of midline touching the right S1 nerve root. No central canal stenosis or neural foraminal stenosis is seen. Slight posterior osteophytes are also noted to the right of midline. No fracture is appreciated. No abnormal subluxation is seen. Impression: 1. Possible disc herniation posterolaterally at L5-S1 to the right of midline. Adjacent endplate osteophytes are seen. Findings likely cause compromise upon the right S1 nerve root. MRI would be helpful to confirm this finding. 2. Slight disc space narrowing at T12-L1. 3. CT lumbar spine study is otherwise unremarkable. Diagnostic code #3
--- NOTE | 2018-08-14 09:15 | CT ---
CT pelvis Technique: Multiple axial sections were obtained from above the iliac crests inferiorly through the pubic symphysis. Intravenous contrast was not utilized. Findings: No intrapelvic abnormality is seen. Appendix is normal. No free fluid is seen. No soft tissue swelling is seen. No fracture is seen within either hip. Sacroiliac joints appear within normal limits. No pelvic fracture is appreciated. Degenerative change at L5-S1 described on previous lumbar spine study. Impression: 1. Degenerative change noted at L5-S1 described on previous lumbar spine exam. 2. Nothing acute is seen on CT study of the pelvis. Diagnostic code #2
[2018-08-14] MEDS ORDERED: HYDROmorphone 1 MG/ML Syringe IVPUSH ONE (09:25)
[2018-08-14] MEDS ORDERED: Metoclopramide 10 MG/2 ML SDV IVPUSH ONE (09:25)
[2018-08-14] MEDS ORDERED: Ondansetron 4 MG/2 ML SDV IV PRN (13:09)
[2018-08-14] MEDS ORDERED: Ondansetron 4 MG Tab.DIS PO PRN (13:09)
--- NOTE | 2018-08-14 13:21 | PCM.HP ---
H&P History of Present Illness - General Date of Service: 08/14/18 Admit Problem/Dx: Admission Diagnosis/Problem Admission Diagnosis/Problem Acute febrile illness Source of Information: Patient, Provider - History of Present Illness Initial Comments - Free Text/Narative: 27-year-old male presented to the emergency room with right lower extremity pain and swelling. He states that he recently traveled by car over the last 2 days from [facility] to [place]. Patient developed worsening left lower extremity redness on the medial aspect of his calf. He also has severe right inguinal pain. Patient has a history of a crush injury to the right leg and chronic pain secondary to reflex sympathetic dystrophy. Patient had a fever of 101.2 this morning and then as high as 104 prior to coming to the emergency room. Temperature in the emergency room was 99.7F. 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 Patient did spend 32 hours driving back from [facility] over the last 2 days. In the emergency room his white count was found to be 18.53 with a left shift. Only 2% bandemia. C-reactive protein was 2.8 with a normal lactic acid of 2.0. Patient was given Dilaudid for pain, and doxycycline and clindamycin IV. He states his pain is improved. Unfortunately, Dilaudid caused nausea. Patient was given Reglan with minimal improvement. Patient has been hospitalized 2 separate times for very similar symptoms which both were treated as cellulitis. First time was a couple weeks after his crush injury on the same leg and then 1 year later. Both treated in this facility. CT of his lumbar spine did show a possible nerve compression at L5-S1. This does not corresponding to his pain in his groin. Location: Reports: Lower Extremity, Right Right Groin Pain Score (Numeric/FACES): 3 Headache Pain Score (Numeric/FACES): 8 - Related Data Allergies/Adverse Reactions: Allergies Allergy/AdvReac Type Severity Reaction Status Date / Time antihistamines Allergy Cannot Uncoded 08/14/18 12:19 Remember Home Medications: Home Meds . [No Known Home Meds] 08/14/18 [History] Past Medical History - Past Health History Medical/Surgical History: Denies Medical/Surgical History HEENT History: Reports: Allergic Rhinitis Cardiovascular History: Reports: Heart Murmur Gastrointestinal History: Reports: Inflammatory Bowel Disease, Other (See Below) Other Gastrointestinal History: ischemic colitis, polyp with removal Musculoskeletal History: Reports: Other (See Below) Other Musculoskeletal History: reports a crest injury Dermatologic History: Reports: Cellulitis Other Dermatologic History: R calf/michelle history of infection Social & Family History - Family History Family Medical History: Noncontributory - Tobacco Use Smoking Status *Q: Never Smoker Years of Tobacco use: 4 Packs/Tins Daily: 1 Used Tobacco, but Quit: Yes Month/Year Tobacco Last Used: Feb 2013 Second Hand Smoke Exposure: No - Caffeine Use Caffeine Use: Reports: None - Recreational Drug Use Recreational Drug Use: No - Living Situation & Occupation Living situation: Reports: Occupation: Employed H&P Review of Systems - Review of Systems: Review Of Systems: ROS reveals no pertinent complaints other than HPI. Exam - Exam Exam: See Below - Vital Signs Vital Signs: Last Vital Signs Temp 99.7 F 08/14/18 07:26 Pulse 120 H 08/14/18 07:26 Resp 16 08/14/18 07:26 BP 120/77 08/14/18 07:26 Pulse Ox 96 08/14/18 07:26 Weight: 189 lb 9.6 oz - Exam Quality Assessment: No: Supplemental Oxygen General: Alert, Oriented HEENT: Conjunctiva Clear, Mucosa Moist & [place], Posterior Pharynx Clear Neck: Supple, Trachea Midline Lungs: Clear to Auscultation, Normal Respiratory Effort Cardiovascular: Regular Rate, Regular Rhythm GI/Abdominal Exam: Normal Bowel Sounds, Soft, Non-Tender, No Distention Extremities: No Pedal Edema, Increased Warmth (Right lower extremity medial calf ), Other (Right groin there is a rope like painful area just lateral to the femoral artery) Skin: Rash (Circular red area with satellite lesions with erythema and warmth. Tender to palpation.) Neuro Extensive - Motor, Sensory, Reflexes: CN II-XII Intact Psychiatric: Alert, Normal Affect, Normal Mood - Patient Data Lab Results Last 24 hrs: Laboratory Results - last 24 hr 08/14/18 08/14/18 08/14/18 Range/Units 07:55 07:55 07:55 WBC 18.53 H (4.23-9.07) K/mm3 RBC 5.35 (4.63-6.08) M/mm3 Hgb 15.8 D (13.7-17.5) gm/L Hct 46.2 (40.1-51.0) % MCV 86.4 (79.0-92.2) fl MCH 29.5 (25.7-32.2) pg MCHC 34.2 (32.2-35.5) g/dl RDW Std Deviation 40.8 (35.1-43.9) fL Plt Count 259 D (163-337) K/mm3 MPV 9.4 (9.4-12.3) fl Neutrophils % (Manual) 78 H (40-60) % Band Neutrophils % 2 (0-10) % Lymphocytes % (Manual) 13 L (20-40) % Atypical Lymphs % 0 % Monocytes % (Manual) 7 (2-10) % Eosinophils % (Manual) 0 L (0.8-7.0) % Basophils % (Manual) 0 L (0.2-1.2) Platelet Estimate Adequate Plt Morphology Comment Normal RBC Morph Comment Normal ESR 10 (0-15) mm/hr Sodium 137 (136-145) mEq/L Potassium 4.1 (3.5-5.1) mEq/L Chloride 102 (98-107) mEq/L Carbon Dioxide 25 (21-32) mEq/L Anion Gap 14.1 (5-15) BUN 17 (7-18) mg/dL Creatinine 1.1 (0.7-1.3) mg/dL Est Cr Clr Drug Dosing 91.83 mL/min Estimated GFR (MDRD) > 60 (>60) mL/min BUN/Creatinine Ratio 15.5 (14-18) Glucose 117 H (74-106) mg/dL Lactic Acid (0.4-2.0) mmol/L Calcium 9.5 (8.5-10.1) mg/dL Total Bilirubin 0.7 (0.2-1.0) mg/dL AST 16 (15-37) U/L ALT 35 (16-63) U/L Alkaline Phosphatase 76 (46-116) U/L Creatine Kinase (39-308) U/L C-Reactive Protein 2.8 H* (<1.0) mg/dL Total Protein 7.7 (6.4-8.2) g/dl Albumin 4.1 (3.4-5.0) g/dl Globulin 3.6 gm/dL Albumin/Globulin Ratio 1.1 (1-2) 08/14/18 08/14/18 Range/Units 07:55 08:25 WBC (4.23-9.07) K/mm3 RBC (4.63-6.08) M/mm3 Hgb (13.7-17.5) gm/L Hct (40.1-51.0) % MCV (79.0-92.2) fl MCH (25.7-32.2) pg MCHC (32.2-35.5) g/dl RDW Std Deviation (35.1-43.9) fL Plt Count (163-337) K/mm3 MPV (9.4-12.3) fl Neutrophils % (Manual) (40-60) % Band Neutrophils % (0-10) % Lymphocytes % (Manual) (20-40) % Atypical Lymphs % % Monocytes % (Manual) (2-10) % Eosinophils % (Manual) (0.8-7.0) % Basophils % (Manual) (0.2-1.2) Platelet Estimate Plt Morphology Comment RBC Morph Comment ESR (0-15) mm/hr Sodium (136-145) mEq/L Potassium (3.5-5.1) mEq/L Chloride (98-107) mEq/L Carbon Dioxide (21-32) mEq/L Anion Gap (5-15) BUN (7-18) mg/dL Creatinine (0.7-1.3) mg/dL Est Cr Clr Drug Dosing mL/min Estimated GFR (MDRD) (>60) mL/min BUN/Creatinine Ratio (14-18) Glucose (74-106) mg/dL Lactic Acid 2.0 (0.4-2.0) mmol/L Calcium (8.5-10.1) mg/dL Total Bilirubin (0.2-1.0) mg/dL AST (15-37) U/L ALT (16-63) U/L Alkaline Phosphatase (46-116) U/L Creatine Kinase 80 (39-308) U/L C-Reactive Protein (<1.0) mg/dL Total Protein (6.4-8.2) g/dl Albumin (3.4-5.0) g/dl Globulin gm/dL Albumin/Globulin Ratio (1-2) Result Diagrams: 08/15/18 04:21 08/15/18 04:21 - Problem List (1) Cellulitis of right lower leg SNOMED Code(s): 473574571 ICD Code: L03.115 - CELLULITIS OF RIGHT LOWER LIMB Status: Acute Current Visit: Yes (2) Chronic pain of right inguinal region SNOMED Code(s): 559010044 ICD Code: R10.31 - RIGHT LOWER QUADRANT PAIN; G89.29 - OTHER CHRONIC PAIN Status: Acute Current Visit: Yes (3) Reflex sympathetic dystrophy of right leg SNOMED Code(s): 524620074 ICD Code: G90.521 - COMPLEX REGIONAL PAIN SYNDROME I OF RIGHT LOWER LIMB Status: Acute Current Visit: Yes Problem List Initiated/Reviewed/Updated: Yes Orders Last 24hrs: Active Orders 24 hr Category Date Time Status Admission Status [Patient Status] [ADT] Routine ADT 08/14/18 10:22 Active Oxygen Therapy [RC] PRN Care 08/14/18 13:09 Ordered Peripheral IV Care [RC] Q2HR Care 08/14/18 07:45 Active Up ad Stefanie [RC] ASDIRECTED Care 08/14/18 13:09 Ordered VTE/DVT Education [RC] PER UNIT ROUTINE Care 08/14/18 13:09 Ordered Vital Signs [RC] Q4H Care 08/14/18 13:09 Ordered Regular Diet [DIET] Diet 08/14/18 Lunch Ordered Venous Doppler Lwr Ext Bi [US] Routine Exams 08/14/18 13:08 Ordered C-REACTIVE PROTEIN [CHEM] AM Lab 08/15/18 05:11 Ordered CBC WITH AUTO DIFF [HEME] AM Lab 08/15/18 05:11 Ordered COMPREHENSIVE METABOLIC PN,CMP [CHEM] AM Lab 08/15/18 05:11 Ordered CULTURE BLOOD [BC] Stat Lab 08/14/18 08:13 Received CULTURE BLOOD [BC] Stat Lab 08/14/18 08:25 Received MAGNESIUM [CHEM] AM Lab 08/15/18 05:11 Ordered Enoxaparin [Lovenox] Med 08/15/18 09:00 Ordered 40 mg SUBCUT DAILY Ibuprofen [Motrin] Med 08/14/18 13:09 Ordered 600 mg PO Q6H PRN Ondansetron [Zofran ODT] Med 08/14/18 13:09 Ordered 4 mg PO Q4H PRN Ondansetron [Zofran] Med 08/14/18 13:09 Ordered 4 mg IV Q4H PRN Sodium Chloride 0.9% [Saline Flush] Med 08/14/18 07:44 Active 10 ml FLUSH ASDIRECTED PRN oxyCODONE Med 08/14/18 13:09 Ordered 5 mg PO Q4H PRN Blood Culture x2 Reflex Set [OM.PC] Stat Ot 08/14/18 07:45 Ordered Peripheral IV Insertion Adult [OM.PC] Stat Ot 08/14/18 07:45 Ordered Resuscitation Status Routine Resus Stat 08/14/18 12:20 Ordered Medication Orders Enoxaparin Sodium (Lovenox) 40 mg SUBCUT DAILY IFEANYI Ibuprofen (Motrin) 600 mg PO Q6H PRN PRN Reason: Pain (moderate 4-6) Ondansetron HCl (Zofran Odt) 4 mg PO Q4H PRN PRN Reason: nausea, able to take PO Ondansetron HCl (Zofran) 4 mg IV Q4H PRN PRN Reason: Nausea/Vomiting Oxycodone HCl (Oxycodone) 5 mg PO Q4H PRN PRN Reason: Pain (moderate 4-6) Sodium Chloride (Saline Flush) 10 ml FLUSH ASDIRECTED PRN PRN Reason: Keep Vein Open Last Admin: 08/14/18 08:00 Dose: 10 ml Assessment/Plan Comment:: Assessment * Right lower extremity cellulitis * Right inguinal pain/tenderness * Low back pain with possible herniated L5-S1 plan * Switch antibiotics to vancomycin * Get Doppler ultrasounds of the right upper extremity to rule out DVT * Follow-up as an outpatient for possible MRI of the lumbar spine. * Follow CBC and C-reactive protein daily * Plan 48-72 hours of IV vancomycin prior to discharge. * CODE STATUS full code
--- NOTE | 2018-08-14 14:32 | US ---
Bilateral lower extremity deep venous ultrasound: Duplex and color flow imaging was obtained of the right and left common femoral, proximal greater saphenous, superficial femoral, popliteal, posterior tibial and peroneal veins. Comparison: No prior venous imaging. Findings: Normal-appearing lymph nodes are seen within both inguinal regions. Normal phasic flow, augmentation and compression is seen. Impression: 1. No evidence of deep venous thrombosis is seen within the right or left lower extremities. Diagnostic code #1
[2018-08-14] MEDS ORDERED: Vancomycin 1.75 GM in Sodium Chloride 0.9% 500 ML IV ONE (18:15)
[2018-08-14] MEDS: oxyCODONE 5 MG Tab PO PRN (19:45)
[2018-08-14] MEDS ORDERED: Lactated Ringers 500 ML IV ONE (20:55)
[2018-08-14] MEDS ORDERED: Benzonatate 100 MG Cap PO PRN (20:56)
[2018-08-14] MEDS ORDERED: Lactated Ringers 1,000 ML IV SCH (21:00)
[2018-08-14] MEDS: Ibuprofen 600 MG Tab PO PRN (21:08)
[2018-08-15] MEDS: Ibuprofen 600 MG Tab PO PRN (05:46)
[2018-08-15] MEDS: Enoxaparin 40 MG/0.4 ML Syringe SUBCUT SCH (09:02)
--- NOTE | 2018-08-15 11:13 | PCM.PN ---
- General Info Date of Service: 08/15/18 Admission Dx/Problem (Free Text): Admission Diagnosis/Problem Admission Diagnosis/Problem Acute febrile illness Subjective Update: Patient had an episode of tachycardia last night around 1999. Temperature of the time was 100.9 Patient received 1 L bolus and was started on 100 mL of LR overnight. Patient is doing much better this morning and is afebrile. Patient does complain of some headache. Also states he had some nausea from the oxycodone and Dilaudid. - Review of Systems General: Reports: Fever HEENT: Reports: No Symptoms Pulmonary: Reports: Cough. Denies: Shortness of Breath Cardiovascular: Reports: No Symptoms, Dyspnea on Exertion. Denies: Chest Pain Neurological: Reports: No Symptoms. Denies: Confusion - Patient Data Vitals - Most Recent: Last Vital Signs Temp 98.1 F 08/15/18 04:32 Pulse 77 08/15/18 04:32 Resp 16 08/15/18 04:32 BP 116/70 08/15/18 04:36 Pulse Ox 95 08/15/18 06:13 Weight - Most Recent: 189 lb 9.6 oz I&O - Last 24 Hours: Intake & Output 08/14/18 08/15/18 08/15/18 22:59 06:59 14:59 Intake Total 150 2776 Output Total 1000 Balance 150 1776 Lab Results Last 24 Hours: Laboratory Results - last 24 hr 08/14/18 08/15/18 08/15/18 Range/Units 15:05 04:21 04:21 WBC 9.48 H (4.23-9.07) K/mm3 RBC 4.76 (4.63-6.08) M/mm3 Hgb 14.2 D (13.7-17.5) gm/L Hct 42.1 (40.1-51.0) % MCV 88.4 (79.0-92.2) fl MCH 29.8 (25.7-32.2) pg MCHC 33.7 (32.2-35.5) g/dl RDW Std Deviation 42.6 (35.1-43.9) fL Plt Count 206 (163-337) K/mm3 MPV 9.3 L (9.4-12.3) fl Neut % (Auto) 66.9 (34.0-67.9) % Lymph % (Auto) 22.8 (21.8-53.1) % [place] % (Auto) 9.6 (5.3-12.2) % Eos % (Auto) 0.5 L (0.8-7.0) Baso % (Auto) 0.2 (0.1-1.2) % Neut # (Auto) 6.34 H (1.78-5.38) K/mm3 Lymph # (Auto) 2.16 (1.32-3.57) K/mm3 [place] # (Auto) 0.91 H (0.30-0.82) K/mm3 Eos # (Auto) 0.05 (0.04-0.54) K/mm3 Baso # (Auto) 0.02 (0.01-0.08) K/mm3 Sodium 139 (136-145) mEq/L Potassium 3.9 (3.5-5.1) mEq/L Chloride 107 (98-107) mEq/L Carbon Dioxide 26 (21-32) mEq/L Anion Gap 9.9 (5-15) BUN 12 (7-18) mg/dL Creatinine 0.9 (0.7-1.3) mg/dL Est Cr Clr Drug Dosing 112.24 mL/min Estimated GFR (MDRD) > 60 (>60) mL/min BUN/Creatinine Ratio 13.3 L (14-18) Glucose 105 (74-106) mg/dL Lactic Acid 1.2 (0.4-2.0) mmol/L Calcium 8.5 (8.5-10.1) mg/dL Magnesium 1.8 (1.8-2.4) mg/dl Total Bilirubin 0.5 (0.2-1.0) mg/dL AST 21 (15-37) U/L ALT 37 (16-63) U/L Alkaline Phosphatase 65 (46-116) U/L C-Reactive Protein 15.3 H* (<1.0) mg/dL Total Protein 6.3 L (6.4-8.2) g/dl Albumin 3.1 L (3.4-5.0) g/dl Globulin 3.2 gm/dL Albumin/Globulin Ratio 1.0 (1-2) Ray Results Last 24 Hours: Microbiology 08/14/ 08:25 Aerobic Blood Culture - Preliminary Blood - Venous - Lab Draw NO GROWTH AFTER 1 DAY Anaerobic Blood Culture - Preliminary NO GROWTH AFTER 1 DAY 08/14/18 08:13 Aerobic Blood Culture - Preliminary Blood - Venous NO GROWTH AFTER 1 DAY Anaerobic Blood Culture - Preliminary NO GROWTH AFTER 1 DAY Med Orders - Current: Current Medications Benzonatate (Tessalon Perles) 100 mg PO TID PRN PRN Reason: Cough Last Admin: 08/14/18 21:10 Dose: 100 mg Enoxaparin Sodium (Lovenox) 40 mg SUBCUT DAILY [facility] Last Admin: 08/15/18 09:02 Dose: 40 mg Vancomycin HCl 1 gm/ Sodium (Chloride) 250 mls @ 250 mls/hr IV Q8H IFEANYI Last Admin: 08/15/18 04:26 Dose: 250 mls/hr Ibuprofen (Motrin) 600 mg PO Q6H PRN PRN Reason: Pain (moderate 4-6) Last Admin: 08/15/18 05:46 Dose: 600 mg Ondansetron HCl (Zofran Odt) 4 mg PO Q4H PRN PRN Reason: nausea, able to take PO Last Admin: 08/14/18 15:28 Dose: 4 mg Ondansetron HCl (Zofran) 4 mg IV Q4H PRN PRN Reason: Nausea/Vomiting Oxycodone HCl (Oxycodone) 5 mg PO Q4H PRN PRN Reason: Pain (moderate 4-6) Last Admin: 08/14/18 19:45 Dose: 5 mg Sodium Chloride (Saline Flush) 10 ml FLUSH ASDIRECTED PRN PRN Reason: Keep Vein Open Last Admin: 08/14/18 08:00 Dose: 10 ml Tramadol HCl (Ultram) 100 mg PO Q6H PRN PRN Reason: Pain Vancomycin HCl (Pharmacy To Dose - Vancomycin) 0 dose .XX ASDIRECTED PRN PRN Reason: RX TO DOSE VANCO Discontinued Medications Acetaminophen (Tylenol) 975 mg PO NOW ONE Stop: 08/14/18 07:46 Last Admin: 08/14/18 07:57 Dose: 975 mg Acetaminophen (Tylenol) 650 mg PO NOW ONE Stop: 08/14/18 10:16 Last Admin: 08/14/18 10:33 Dose: 650 mg Hydromorphone HCl (Dilaudid) 1 mg IVPUSH ONETIME ONE Stop: 08/14/18 09:26 Last Admin: 08/14/18 09:37 Dose: 1 mg Doxycycline Hyclate 100 mg/ (Sodium Chloride) 100 mls @ 100 mls/hr IV ONETIME ONE Stop: 08/14/18 08:48 Last Admin: 08/14/18 07:57 Dose: 100 mls/hr Clindamycin Phosphate 900 mg/ (Premix) 50 mls @ 100 mls/hr IV ONETIME ONE Stop: 08/14/18 08:37 Last Admin: 08/14/18 09:22 Dose: 100 mls/hr Vancomycin HCl 1.75 gm/ Sodium (Chloride) 500 mls @ 250 mls/hr IV ONETIME ONE Stop: 08/14/18 20:14 Last Admin: 08/14/18 19:41 Dose: 250 mls/hr Lactated Ringer's (Ringers, Lactated) 500 mls @ 500 mls/hr IV BOLUS ONE Stop: 08/14/18 21:54 Last Admin: 08/14/18 21:10 Dose: 500 mls/hr Lactated Ringer's (Ringers, Lactated) 1,000 mls @ 100 mls/hr IV ASDIRECTED [facility] Last Admin: 08/14/18 22:45 Dose: 100 mls/hr Ketorolac Tromethamine (Toradol) 30 mg IVPUSH ONETIME [facility] Last Admin: 08/14/18 07:58 Dose: 30 mg Metoclopramide HCl (Reglan) 7.5 mg IVPUSH ONETIME ONE Stop: 08/14/18 09:26 Last Admin: 08/14/18 09:37 Dose: 7.5 mg - Exam Quality Assessment: No: Supplemental Oxygen General: Alert, Oriented HEENT: Pupils Equal, Pupils Reactive Neck: Supple Lungs: Clear to Auscultation, Normal Respiratory Effort Cardiovascular: Regular Rate, Regular Rhythm GI/Abdominal Exam: Normal Bowel Sounds, Soft, Non-Tender Back Exam: Muscle Spasm, Other Extremities: Normal Inspection, Normal Range of Motion, Non-Tender, No Pedal Edema, Other (Improving redness in the medial aspect of the left calf.) Skin: Warm, Dry, Intact Neurological: No New Focal Deficit Psy/Mental Status: Alert, Normal Affect, Normal Mood - Problem List & Annotations (1) Cellulitis of right lower leg SNOMED Code(s): 615580152 Code(s): L03.115 - CELLULITIS OF RIGHT LOWER LIMB Status: Acute Current Visit: Yes (2) Chronic pain of right inguinal region SNOMED Code(s): 390499707 Code(s): R10.31 - RIGHT LOWER QUADRANT PAIN; G89.29 - OTHER CHRONIC PAIN Status: Acute Current Visit: Yes (3) Reflex sympathetic dystrophy of right leg SNOMED Code(s): 030893503 Code(s): G90.521 - COMPLEX REGIONAL PAIN SYNDROME I OF RIGHT LOWER LIMB Status: Acute Current Visit: Yes - Problem List Review Problem List Initiated/Reviewed/Updated: Yes - My Orders Last 24 Hours: My Active Orders 08/14/18 12:20 Resuscitation Status Routine 08/14/18 13:09 VTE/DVT Education [RC] Vital Signs [RC] Q4HR Ibuprofen [Motrin] 600 mg PO Q6H PRN Ondansetron [Zofran ODT] 4 mg PO Q4H PRN Ondansetron [Zofran] 4 mg IV Q4H PRN oxyCODONE 5 mg PO Q4H PRN 08/14/18 18:15 Pharmacy to Dose - Vancomycin 0 dose .XX ASDIRECTED PRN 08/14/18 20:56 Benzonatate [Tessalon Perles] 100 mg PO TID PRN 08/14/18 22:07 traMADol [Ultram] 100 mg PO Q6H PRN 08/14/18 23:41 Oxygen Therapy Adult [Oxygen Therapy] [RC] ASDIRECTED 08/14/18 Lunch Regular Diet [DIET] 08/15/18 04:00 Vancomycin 1 gm Sodium Chloride 0.9% [Normal Saline] 250 ml IV Q8H 08/15/18 09:00 Enoxaparin [Lovenox] 40 mg SUBCUT DAILY 08/15/18 11:05 PT Evaluation and Treatment [CONS] Routine 08/16/18 05:11 C-REACTIVE PROTEIN [CHEM] AM CBC WITH AUTO DIFF [HEME] AM CMP [COMPREHENSIVE METABOLIC PN,CMP] [CHEM] AM MAGNESIUM [CHEM] AM - Plan Plan:: Assessment * Right lower extremity cellulitis * Right inguinal pain/tenderness * Low back pain with possible herniated L5-S1 * complex regional pain syndrome plan * Continue vancomycin; pharmacy to dose * Get Doppler ultrasounds of the right upper extremity to rule out DVT * Follow-up as an outpatient for possible MRI of the lumbar spine. * Follow CBC and C-reactive protein daily * Switch patient to Ultram for pain. He seemed to have nausea with narcotics. * Plan 48-72 hours of IV vancomycin prior to discharge. * CODE STATUS full code
[2018-08-15] MEDS: traMADol 50 MG Tab PO PRN (19:25)
[2018-08-15] MEDS ORDERED: Bisacodyl 5 MG Tab PO ONE (21:00)
[2018-08-15] MEDS: Acetaminophen/Butalbital/Caffeine 325-50-40 MG Tab PO ONE ×2 (21:58→22:11)
[2018-08-16] MEDS: traMADol 50 MG Tab PO PRN ×2 (04:45→20:52)
[2018-08-16] MEDS: Enoxaparin 40 MG/0.4 ML Syringe SUBCUT SCH (08:57)
[2018-08-16] MEDS: oxyCODONE 5 MG Tab PO PRN (09:06)
--- NOTE | 2018-08-16 09:12 | PCM.PN ---
- General Info Date of Service: 08/16/18 Admission Dx/Problem (Free Text): Admission Diagnosis/Problem Admission Diagnosis/Problem Acute febrile illness Subjective Update: August 15, 2018 Patient had an episode of tachycardia last night around 1999. Temperature of the time was 100.9 Patient received 1 L bolus and was started on 100 mL of LR overnight. Patient is doing much better this morning and is afebrile. Patient does complain of some headache. Also states he had some nausea from the oxycodone and Dilaudid. August 16, 2018 Patient continues to improve. He did complain of a headache last night and received one Furacin. Today he is doing much better and has no specific complaints. He denies any fever or chills. Left leg pain is improved. - Review of Systems General: Reports: No Symptoms. Denies: Fever, Weakness HEENT: Reports: No Symptoms Pulmonary: Reports: No Symptoms. Denies: Shortness of Breath, Cough Cardiovascular: Reports: No Symptoms. Denies: Chest Pain Gastrointestinal: Reports: No Symptoms. Denies: Abdominal Pain Skin: Reports: No Symptoms - Patient Data Vitals - Most Recent: Last Vital Signs Temp 98.1 F 08/16/18 08:02 Pulse 82 08/16/18 08:02 Resp 16 08/16/18 08:02 BP 110/55 L 08/16/18 08:02 Pulse Ox 98 08/16/18 08:02 Weight - Most Recent: 189 lb 14.4 oz I&O - Last 24 Hours: Intake & Output 08/15/18 08/16/18 08/16/18 22:59 06:59 14:59 Intake Total 1500 1700 Balance 1500 1700 Lab Results Last 24 Hours: Laboratory Results - last 24 hr 08/15/18 08/16/18 08/16/18 Range/Units 19:40 04:35 04:35 WBC 8.14 (4.23-9.07) K/mm3 RBC 4.80 (4.63-6.08) M/mm3 Hgb 14.3 (13.7-17.5) gm/L Hct 42.6 (40.1-51.0) % MCV 88.8 (79.0-92.2) fl MCH 29.8 (25.7-32.2) pg MCHC 33.6 (32.2-35.5) g/dl RDW Std Deviation 42.4 (35.1-43.9) fL Plt Count 222 (163-337) K/mm3 MPV 9.5 (9.4-12.3) fl Neut % (Auto) 50.4 (34.0-67.9) % Lymph % (Auto) 35.6 (21.8-53.1) % Frio % (Auto) 12.0 (5.3-12.2) % Eos % (Auto) 1.7 (0.8-7.0) Baso % (Auto) 0.2 (0.1-1.2) % Neut # (Auto) 4.09 (1.78-5.38) K/mm3 Lymph # (Auto) 2.90 (1.32-3.57) K/mm3 Frio # (Auto) 0.98 H (0.30-0.82) K/mm3 Eos # (Auto) 0.14 (0.04-0.54) K/mm3 Baso # (Auto) 0.02 (0.01-0.08) K/mm3 Sodium 142 (136-145) mEq/L Potassium 4.1 (3.5-5.1) mEq/L Chloride 107 (98-107) mEq/L Carbon Dioxide 27 (21-32) mEq/L Anion Gap 12.1 (5-15) BUN 12 (7-18) mg/dL Creatinine 0.8 (0.7-1.3) mg/dL Est Cr Clr Drug Dosing 126.27 mL/min Estimated GFR (MDRD) > 60 (>60) mL/min BUN/Creatinine Ratio 15.0 (14-18) Glucose 95 (74-106) mg/dL Calcium 8.9 (8.5-10.1) mg/dL Magnesium 1.8 (1.8-2.4) mg/dl Total Bilirubin 0.3 (0.2-1.0) mg/dL AST 42 H (15-37) U/L ALT 65 H (16-63) U/L Alkaline Phosphatase 71 (46-116) U/L C-Reactive Protein 8.5 H* (<1.0) mg/dL Total Protein 7.0 (6.4-8.2) g/dl Albumin 3.3 L (3.4-5.0) g/dl Globulin 3.7 gm/dL Albumin/Globulin Ratio 0.9 L (1-2) Vancomycin Trough 10.0 (10.0-20.0) Ray Results Last 24 Hours: Microbiology 08/14/18 08:25 Aerobic Blood Culture - Preliminary Blood - Venous - Lab Draw NO GROWTH AFTER 2 DAYS Anaerobic Blood Culture - Preliminary NO GROWTH AFTER 2 DAYS 08/14/18 08:13 Aerobic Blood Culture - Preliminary Blood - Venous NO GROWTH AFTER 2 DAYS Anaerobic Blood Culture - Preliminary NO GROWTH AFTER 2 DAYS Med Orders - Current: Current Medications Benzonatate (Tessalon Perles) 100 mg PO TID PRN PRN Reason: Cough Last Admin: 08/14/18 21:10 Dose: 100 mg Enoxaparin Sodium (Lovenox) 40 mg SUBCUT DAILY [facility] Last Admin: 08/16/18 08:57 Dose: 40 mg Vancomycin HCl 1 gm/ Sodium (Chloride) 250 mls @ 250 mls/hr IV Q8H [facility] Last Admin: 08/16/18 04:28 Dose: 250 mls/hr Ibuprofen (Motrin) 600 mg PO Q6H PRN PRN Reason: Pain (moderate 4-6) Last Admin: 08/15/18 05:46 Dose: 600 mg Ondansetron HCl (Zofran Odt) 4 mg PO Q4H PRN PRN Reason: nausea, able to take PO Last Admin: 08/14/18 15:28 Dose: 4 mg Ondansetron HCl (Zofran) 4 mg IV Q4H PRN PRN Reason: Nausea/Vomiting Oxycodone HCl (Oxycodone) 5 mg PO Q4H PRN PRN Reason: Pain (moderate 4-6) Last Admin: 08/16/18 09:06 Dose: 5 mg Sodium Chloride (Saline Flush) 10 ml FLUSH ASDIRECTED PRN PRN Reason: Keep Vein Open Last Admin: 08/14/18 08:00 Dose: 10 ml Tramadol HCl (Ultram) 100 mg PO Q6H PRN PRN Reason: Pain Last Admin: 08/16/18 04:45 Dose: 100 mg Vancomycin HCl (Pharmacy To Dose - Vancomycin) 0 dose .XX ASDIRECTED PRN PRN Reason: RX TO DOSE VANCO Discontinued Medications Acetaminophen (Tylenol) 975 mg PO NOW ONE Stop: 08/14/18 07:46 Last Admin: 08/14/18 07:57 Dose: 975 mg Acetaminophen (Tylenol) 650 mg PO NOW ONE Stop: 08/14/18 10:16 Last Admin: 08/14/18 10:33 Dose: 650 mg Acetaminophen/Butalbital/Caffeine (Fioricet 325-50-40 Mg) 1 tab PO ONETIME ONE Stop: 08/15/18 21:49 Last Admin: 08/15/18 22:11 Dose: 1 tab Bisacodyl (Dulcolax) 5 mg PO ONETIME ONE Stop: 08/15/18 21:01 Last Admin: 08/15/18 20:46 Dose: 5 mg Hydromorphone HCl (Dilaudid) 1 mg IVPUSH ONETIME ONE Stop: 08/14/18 09:26 Last Admin: 08/14/18 09:37 Dose: 1 mg Doxycycline Hyclate 100 mg/ (Sodium Chloride) 100 mls @ 100 mls/hr IV ONETIME ONE Stop: 08/14/18 08:48 Last Admin: 08/14/18 07:57 Dose: 100 mls/hr Clindamycin Phosphate 900 mg/ (Premix) 50 mls @ 100 mls/hr IV ONETIME ONE Stop: 08/14/18 08:37 Last Admin: 08/14/18 09:22 Dose: 100 mls/hr Vancomycin HCl 1.75 gm/ Sodium (Chloride) 500 mls @ 250 mls/hr IV ONETIME ONE Stop: 08/14/18 20:14 Last Admin: 08/14/18 19:41 Dose: 250 mls/hr Lactated Ringer's (Ringers, Lactated) 500 mls @ 500 mls/hr IV BOLUS ONE Stop: 08/14/18 21:54 Last Admin: 08/14/18 21:10 Dose: 500 mls/hr Lactated Ringer's (Ringers, Lactated) 1,000 mls @ 100 mls/hr IV ASDIRECTED [facility] Last Admin: 08/14/18 22:45 Dose: 100 mls/hr Ketorolac Tromethamine (Toradol) 30 mg IVPUSH ONETIME [facility] Last Admin: 08/14/18 07:58 Dose: 30 mg Metoclopramide HCl (Reglan) 7.5 mg IVPUSH ONETIME ONE Stop: 08/14/18 09:26 Last Admin: 08/14/18 09:37 Dose: 7.5 mg - Exam Quality Assessment: No: Supplemental Oxygen General: Alert, Oriented HEENT: Pupils Equal, Pupils Reactive Neck: Supple Lungs: Clear to Auscultation, Normal Respiratory Effort Cardiovascular: Regular Rate, Regular Rhythm GI/Abdominal Exam: Normal Bowel Sounds, Soft, Non-Tender, No Organomegaly, No Distention Extremities: Other (Decreased redness and size in the left lower extremity medial cellulitis) Skin: Warm, Dry, Intact Neurological: No New Focal Deficit Psy/Mental Status: Alert, Normal Affect, Normal Mood - Problem List & Annotations (1) Cellulitis of right lower leg SNOMED Code(s): 011141233 Code(s): L03.115 - CELLULITIS OF RIGHT LOWER LIMB Status: Acute Current Visit: Yes (2) Chronic pain of right inguinal region SNOMED Code(s): 202499477 Code(s): R10.31 - RIGHT LOWER QUADRANT PAIN; G89.29 - OTHER CHRONIC PAIN Status: Acute Current Visit: Yes (3) Reflex sympathetic dystrophy of right leg SNOMED Code(s): 891470189 Code(s): G90.521 - COMPLEX REGIONAL PAIN SYNDROME I OF RIGHT LOWER LIMB Status: Acute Current Visit: Yes - Problem List Review Problem List Initiated/Reviewed/Updated: Yes - My Orders Last 24 Hours: My Active Orders 08/15/18 09:00 Enoxaparin [Lovenox] 40 mg SUBCUT DAILY 08/15/18 11:05 PT Evaluation and Treatment [CONS] Routine - Plan Plan:: Assessment * Right lower extremity cellulitis * Low back pain with possible herniated L5-S1 * Right inguinal pain/tenderness - likely secondary to above possible herniated disc * complex regional pain syndrome plan * Continue vancomycin; pharmacy to dose * Get Doppler ultrasounds of the right upper extremity to rule out DVT - negative for DVT * Follow-up as an outpatient for possible MRI of the lumbar spine. * Follow CBC and C-reactive protein daily * Switch patient to Ultram for pain. He seemed to have nausea with narcotics. * Plan 48-72 hours of IV vancomycin prior to discharge. * CODE STATUS full code
[2018-08-16] MEDS ORDERED: Bisacodyl 5 MG Tab PO PRN (10:47)
[2018-08-16] MEDS ORDERED: Acetaminophen/Butalbital/Caffeine 325-50-40 MG Tab PO PRN (11:48)
[2018-08-17] MEDS ORDERED: Doxycycline 100 MG Cap PO SCH (09:00)
[2018-08-17] MEDS: Enoxaparin 40 MG/0.4 ML Syringe SUBCUT SCH (10:12)
[2018-08-17] MEDS: traMADol 50 MG Tab PO PRN (10:34)
--- NOTE | 2018-08-17 10:56 | PCM.DCSUM1 ---
Discharge Summary - Hospital Course HPI Initial Comments: 27-year-old male presented to the emergency room with right lower extremity pain and swelling. He states that he recently traveled by car over the last 2 days from [facility] to [place]. Patient developed worsening left lower extremity redness on the medial aspect of his calf. He also has severe right inguinal pain. Patient has a history of a crush injury to the right leg and chronic pain secondary to reflex sympathetic dystrophy. Patient had a fever of 101.2 this morning and then as high as 104 prior to coming to the emergency room. Temperature in the emergency room was 99.7F. 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 Patient did spend 32 hours [address] back from [facility] over the last 2 days. In the emergency room his white count was found to be 18.53 with a left shift. Only 2% bandemia. C-reactive protein was 2.8 with a normal lactic acid of 2.0. Patient was given Dilaudid for pain, and doxycycline and clindamycin IV. He states his pain is improved. Unfortunately, Dilaudid caused nausea. Patient was given Reglan with minimal improvement. Patient has been hospitalized 2 separate times for very similar symptoms which both were treated as cellulitis. First time was a couple weeks after his crush injury on the same leg and then 1 year later. Both treated in this facility. CT of his lumbar spine did show a possible nerve compression at L5-S1. This does not corresponding to his pain in his groin. Brief History: patient treated with IV vancomycin. He did well during hospitalization. He did have an ultrasound of his lower extremities to rule out DVT which demonstrated no DVT. CT scan of his lumbar spine: Possible disc herniation posterolaterally at L5-S1 to the right of midline. Adjacent endplate osteophytes are seen. Findings likely cause compromise upon the right S1 nerve root. MRI would be helpful to confirm this finding. - Discharge Data Discharge Date: 08/17/18 Discharge Disposition: Home, Self-Care 01 Condition: Good - Discharge Diagnosis/Problem(s) (1) Cellulitis of right lower leg SNOMED Code(s): 550156241 ICD Code: L03.115 - CELLULITIS OF RIGHT LOWER LIMB Status: Acute Current Visit: Yes (2) Chronic pain of right inguinal region SNOMED Code(s): 747037833 ICD Code: R10.31 - RIGHT LOWER QUADRANT PAIN; G89.29 - OTHER CHRONIC PAIN Status: Acute Current Visit: Yes (3) Reflex sympathetic dystrophy of right leg SNOMED Code(s): 504910857 ICD Code: G90.521 - COMPLEX REGIONAL PAIN SYNDROME I OF RIGHT LOWER LIMB Status: Acute Current Visit: Yes - Patient Summary/Data Consults: Consultations 08/15/18 11:05 PT Evaluation and Treatment [CONS] Routine - Patient Instructions Diet: Usual Diet as Tolerated Activity: As Tolerated Driving: May Drive Today Showering/Bathing: May Shower Other/Special Instructions: Follow up with PCP next week. - Discharge Plan *PRESCRIPTION DRUG MONITORING PROGRAM REVIEWED*: No *COPY OF PRESCRIPTION DRUG MONITORING REPORT IN PATIENT MATHEW: No Prescriptions/Med Rec: Doxycycline [Vibramycin] 100 mg PO Q12HR #15 cap Home Medications: Home Meds Doxycycline [Vibramycin] 100 mg PO Q12HR #15 cap 08/17/18 [Rx] Patient Handouts: Neuropathic Pain Forms: ED Department Discharge Referrals: Parvin Montesinos MD [Primary Care Provider] - 08/22/18 2:30 pm (nurse intake at 14: 30, and will see the Doctor at 1500, Renetta Morris) - Discharge Summary/Plan Comment DC Time >30 min.: Yes Discharge Summary/Plan Comment: ASSESSMENT * right lower extremity cellulitis * Right inguinal pain possibly secondary to disc herniation posterolaterally at L5-S1 CT scan of his lumbar spine: Possible disc herniation posterolaterally at L5-S1 to the right of midline. Adjacent endplate osteophytes are seen. Findings likely cause compromise upon the right S1 nerve root. MRI would be helpful to confirm this finding. PLAN * Discharged home on doxycycline 100 mg twice a day. Patient given first dose this morning to bridge with vancomycin. Total of 7 days doxycycline * Follow-up with primary care provider for possible MRI HOME WITH PHYSICAL THERAPY> - General Info Date of Service: 08/17/18 Admission Dx/Problem (Free Text: Admission Diagnosis/Problem Admission Diagnosis/Problem Acute febrile illness Subjective Update: August 15, 2018 Patient had an episode of tachycardia last night around 1999. Temperature of the time was 100.9 Patient received 1 L bolus and was started on 100 mL of LR overnight. Patient is doing much better this morning and is afebrile. Patient does complain of some headache. Also states he had some nausea from the oxycodone and Dilaudid. August 16, 2018 Patient continues to improve. He did complain of a headache last night and received one Fioricet. Today he is doing much better and has no specific complaints. He denies any fever or chills. Left leg pain is improved. August 17, 2018 patient had another uneventful night. Continues to have occasional headaches. Afebrile. Functional Status: Reports: Pain Controlled - Review of Systems General: Reports: No Symptoms HEENT: Reports: No Symptoms Pulmonary: Reports: No Symptoms Cardiovascular: Reports: No Symptoms - Patient Data Vitals - Most Recent: Last Vital Signs Temp 98.1 F 08/17/18 04:31 Pulse 78 08/17/18 04:31 Resp 16 08/17/18 04:31 BP 126/69 08/17/18 04:31 Pulse Ox 98 08/17/18 04:31 Weight - Most Recent: 187 lb 9.6 oz I&O - Last 24 hours: Intake & Output 08/16/18 08/17/18 08/17/18 22:59 06:59 14:59 Intake Total 1850 1850 Balance 1850 1850 ANGELA Results - Last 24 hrs: Microbiology 08/14/18 08:25 Aerobic Blood Culture - Preliminary Blood - Venous - Lab Draw NO GROWTH AFTER 3 DAYS Anaerobic Blood Culture - Preliminary NO GROWTH AFTER 3 DAYS 08/14/18 08:13 Aerobic Blood Culture - Preliminary Blood - Venous NO GROWTH AFTER 3 DAYS Anaerobic Blood Culture - Preliminary NO GROWTH AFTER 3 DAYS Med Orders - Current: Current Medications Acetaminophen/Butalbital/Caffeine (Fioricet 325-50-40 Mg) 1 tab PO Q6H PRN PRN Reason: Headache Last Admin: 08/16/18 11:58 Dose: 1 tab Benzonatate (Tessalon Perles) 100 mg PO TID PRN PRN Reason: Cough Last Admin: 08/14/18 21:10 Dose: 100 mg Bisacodyl (Dulcolax) 5 mg PO DAILY PRN PRN Reason: Constipation Last Admin: 08/16/18 11:39 Dose: 5 mg Doxycycline Hyclate (Vibramycin) 100 mg PO Q12HR [facility] Last Admin: 08/17/18 10:13 Dose: 100 mg Enoxaparin Sodium (Lovenox) 40 mg SUBCUT DAILY [facility] Last Admin: 08/17/18 10:12 Dose: 40 mg Vancomycin HCl 1 gm/ Sodium (Chloride) 250 mls @ 250 mls/hr IV Q8H [facility] Last Admin: 08/17/18 04:27 Dose: 250 mls/hr Ibuprofen (Motrin) 600 mg PO Q6H PRN PRN Reason: Pain (moderate 4-6) Last Admin: 08/15/18 05:46 Dose: 600 mg Ondansetron HCl (Zofran Odt) 4 mg PO Q4H PRN PRN Reason: nausea, able to take PO Last Admin: 08/14/18 15:28 Dose: 4 mg Ondansetron HCl (Zofran) 4 mg IV Q4H PRN PRN Reason: Nausea/Vomiting Oxycodone HCl (Oxycodone) 5 mg PO Q4H PRN PRN Reason: Pain (moderate 4-6) Last Admin: 08/16/18 09:06 Dose: 5 mg Sodium Chloride (Saline Flush) 10 ml FLUSH ASDIRECTED PRN PRN Reason: Keep Vein Open Last Admin: 08/14/18 08:00 Dose: 10 ml Tramadol HCl (Ultram) 100 mg PO Q6H PRN PRN Reason: Pain Last Admin: 08/17/18 10:34 Dose: 100 mg Vancomycin HCl (Pharmacy To Dose - Vancomycin) 0 dose .XX ASDIRECTED PRN PRN Reason: RX TO DOSE VANCO Discontinued Medications Acetaminophen (Tylenol) 975 mg PO NOW ONE Stop: 08/14/18 07:46 Last Admin: 08/14/18 07:57 Dose: 975 mg Acetaminophen (Tylenol) 650 mg PO NOW ONE Stop: 08/14/18 10:16 Last Admin: 08/14/18 10:33 Dose: 650 mg Acetaminophen/Butalbital/Caffeine (Fioricet 325-50-40 Mg) 1 tab PO ONETIME ONE Stop: 08/15/18 21:49 Last Admin: 08/15/18 22:11 Dose: 1 tab Bisacodyl (Dulcolax) 5 mg PO ONETIME ONE Stop: 08/15/18 21:01 Last Admin: 08/15/18 20:46 Dose: 5 mg Hydromorphone HCl (Dilaudid) 1 mg IVPUSH ONETIME ONE Stop: 08/14/18 09:26 Last Admin: 08/14/18 09:37 Dose: 1 mg Doxycycline Hyclate 100 mg/ (Sodium Chloride) 100 mls @ 100 mls/hr IV ONETIME ONE Stop: 08/14/18 08:48 Last Admin: 08/14/18 07:57 Dose: 100 mls/hr Clindamycin Phosphate 900 mg/ (Premix) 50 mls @ 100 mls/hr IV ONETIME ONE Stop: 08/14/18 08:37 Last Admin: 08/14/18 09:22 Dose: 100 mls/hr Vancomycin HCl 1.75 gm/ Sodium (Chloride) 500 mls @ 250 mls/hr IV ONETIME ONE Stop: 08/14/18 20:14 Last Admin: 08/14/18 19:41 Dose: 250 mls/hr Lactated Ringer's (Ringers, Lactated) 500 mls @ 500 mls/hr IV BOLUS ONE Stop: 08/14/18 21:54 Last Admin: 08/14/18 21:10 Dose: 500 mls/hr Lactated Ringer's (Ringers, Lactated) 1,000 mls @ 100 mls/hr IV ASDIRECTED [facility] Last Admin: 08/14/18 22:45 Dose: 100 mls/hr Ketorolac Tromethamine (Toradol) 30 mg IVPUSH ONETIME [facility] Last Admin: 08/14/18 07:58 Dose: 30 mg Metoclopramide HCl (Reglan) 7.5 mg IVPUSH ONETIME ONE Stop: 08/14/18 09:26 Last Admin: 08/14/18 09:37 Dose: 7.5 mg - Exam General: Reports: Alert, Oriented HEENT: Reports: Pupils Equal, Pupils Reactive Neck: Reports: Supple Lungs: Reports: Clear to Auscultation, Normal Respiratory Effort Cardiovascular: Reports: Regular Rate, Regular Rhythm GI/Abdominal Exam: Normal Bowel Sounds, Soft, Non-Tender, No Organomegaly, No Distention Extremities: Normal Inspection, Normal Range of Motion, Non-Tender, No Pedal Edema Skin: Reports: Warm, Dry, Intact Neurological: Reports: No New Focal Deficit Psy/Mental Status: Reports: Alert, Normal Affect, Normal Mood
== END 2018-08-17 13:08 | disposition home or self-care (01) | DRG 603 ==
LOC: JD.ED 07:18 → JD.MS 10:22
PROVIDERS: ADMIT Emergency Medicine; ATTEND Family Medicine
DX: L03.115 Cellulitis of right lower limb (principal); G90.521 Complex regional pain syndrome I of right lower limb; J30.9 Allergic rhinitis, unspecified; R00.0 Tachycardia, unspecified; T40.2X5A Adverse effect of other opioids, initial encounter; R51 Headache; R10.31 Right lower quadrant pain; R11.0 Nausea; M51.27 Other intervertebral disc displacement, lumbosacral region; Z85.038 Personal history of other malignant neoplasm of large intestine; Z88.8 Allergy status to other drugs, medicaments and biological substances
CPT/HCPCS: 36415; 72131; 72131-26; 72192; 72192-26; 80053; 80202; 82550; 83605; 83735; 85007; 85025; 85027; 85652; 86140; 87040; 93970; 93970-26; 96365; 96367; 96375; 97110-GP; 97162-GP; 99285; 99285-25; A9270-GY; J1170; J1650; J1885; J2765; J3370; J3490; J7030; J7040; J7050; J7120

== ENCOUNTER 2020-01-15 14:44 | Emergency (ER) | payer OTHER ==
[2020-01-15] MEDS ORDERED: Ondansetron 4 MG/2 ML SDV IVPUSH ONE (15:14)
[2020-01-15] MEDS ORDERED: Sodium Chloride 0.9% 10 ML Syringe FLUSH PRN (15:14)
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
[2020-01-15] MEDS ORDERED: cefTRIAXone 2 GM in Sodium Chloride 0.9% 100 ML IV ONE (15:26)
== END 2020-01-15 17:28 | disposition home or self-care (01) ==
LOC: JD.ED 14:44
DX: L03.115 Cellulitis of right lower limb (principal); R11.2 Nausea with vomiting, unspecified; Z88.8 Allergy status to other drugs, medicaments and biological substances
CPT/HCPCS: 36415; 80053; 85025; 87641; 96365; 96375; 99283; J0696; J2405; J7050

== ENCOUNTER 2020-03-16 00:06 | Emergency (ER) | payer OTHER ==
[2020-03-16] MEDS ORDERED: HYDROmorphone 0.5 MG/0.5 ML Syringe IVPUSH ONE (00:49)
[2020-03-16] MEDS ORDERED: Ondansetron 4 MG/2 ML SDV IVPUSH ONE (00:49)
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
[2020-03-16] MEDS ORDERED: Sodium Chloride 0.9% 1,000 ML IV SCH (01:00)
[2020-03-16] MEDS ORDERED: cefTRIAXone 2 GM in Sodium Chloride 0.9% 100 ML IV STA (03:44)
== END 2020-03-16 04:30 | disposition home or self-care (01) ==
LOC: JD.ED 00:06
DX: R59.0 Localized enlarged lymph nodes (principal); R11.2 Nausea with vomiting, unspecified; Z88.8 Allergy status to other drugs, medicaments and biological substances; Z86.16 Personal history of COVID-19; Z87.891 Personal history of nicotine dependence
CPT/HCPCS: 36415; 80053; 85007; 85027; 86140; 87040; 87641; 96365; 96375; 99284; J0696; J1170; J2405; J7030; J7050

== ENCOUNTER 2020-03-17 09:40 | Observation (INO) | payer OTHER ==
[2020-03-17] MEDS ORDERED: Sodium Chloride 0.9% 10 ML Syringe FLUSH PRN (10:20)
--- NOTE | 2020-03-17 10:31 | EDM.PDOC ---
ED HPI GENERAL MEDICAL PROBLEM - General Chief Complaint: Lower Extremity Injury/Pain Stated Complaint: LEG SWOLLEN AND RED [facility] Time Seen by Provider: 03/17/20 09:58 Source of Information: Reports: Patient, RN Notes Reviewed - History of Present Illness INITIAL COMMENTS - FREE TEXT/NARRATIVE: 29 yr old male returns with R lower leg infection. He presented 1 1/2 days ago with chills, subjective fever, R groin pain, nausea, palpitations, Esparza. Eval at that time showed a WBC of 25,000, L shift. See record for details. There were no med surg. beds so patient was sent home on keflex 500 mg qid. He has had continued chills, possible low grade fever, increasing R groin pain and now also has an area of erythema developing R anterior tibia with localized tenderness. This follows a pattern he has had with other RLE infections over the past 3 to 4 yrs following a crush injury to R lower thigh about 4 yrs ago. Right Lower Leg Pain Score (Numeric/FACES): 9 - Related Data Allergies Allergy/AdvReac Type Severity Reaction Status Date / Time antihistamines Allergy Cannot Uncoded 03/17/20 09:53 Remember Home Meds: Home Meds Adalimumab [Humira Pen] 1 injection IM ASDIRECTED 01/15/20 [History] cephALEXin [Cephalexin] 1 tab PO Q6H #28 tablet 03/16/20 [Rx] Past Medical History - Past Health History Medical/Surgical History: Denies Medical/Surgical History HEENT History: Reports: Allergic Rhinitis Cardiovascular History: Reports: Heart Murmur Gastrointestinal History: Reports: Colon Polyp, Other (See Below) Other Gastrointestinal History: ischemic colitis, polyp with removal Musculoskeletal History: Reports: Other (See Below) Other Musculoskeletal History: reports a chest injury; crush injury of R lower leg 11/2016 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) Psychiatric History: Reports: Depression, PTSD Dermatologic History: Reports: Psoriasis Other Dermatologic History: R calf/michelle history of infection - Infectious Disease History Infectious Disease History: Reports: Chicken Pox, Novel Coronavirus - Past Surgical History HEENT Surgical History: Reports: Naso-Sinus Surgery, Oral Surgery GI Surgical History: Reports: Colonoscopy Social & Family History - Family History Family Medical History: No Pertinent Family History - Tobacco Use Tobacco Use Status *Q: Unknown Ever Used Tobacco - Caffeine Use Caffeine Use: Reports: Coffee, Soda, Tea - Living Situation & Occupation Living situation: Reports: , with Spouse, with Family (1 child) Occupation: Unemployed Review of Systems - Review of Systems Review Of Systems: See Below Constitutional: Reports: Chills, Fever Mouth/Throat: Reports: No Symptoms Respiratory: Denies: Shortness of Breath, Cough Cardiovascular: Denies: Chest Pain GI/Abdominal: Reports: Nausea, Vomiting. Denies: Abdominal Pain Musculoskeletal: Reports: Leg Pain Skin: Reports: Erythema (R lower ant. leg) Neurological: Reports: No Symptoms ED EXAM, GENERAL - Physical Exam Exam: See Below General Appearance: Alert, Mild Distress Head: Atraumatic Neck: Supple, Other (mild tenderness bilat post base) Respiratory/Chest: No Respiratory Distress, Lungs Clear, Normal Breath Sounds GI/Abdominal: Non-Tender Extremities: Redness (R ant. mid shaft area lower leg), Other (tender anterior lower leg, post calf nontender, no visible swelling, no palpable mass, tender R groin with at least 2 palpable nodes) Neurological: No Motor/Sensory Deficits Skin Exam: Warm, Dry, Erythema (ant. lower leg) Course - Vital Signs Last Recorded V/S: Last Vital Signs Temp 97.6 F 03/17/20 09:48 Pulse 86 03/17/20 09:48 Resp 16 03/17/20 09:48 BP 127/70 03/17/20 09:48 Pulse Ox 100 03/17/20 09:48 - Orders/Labs/Meds Orders: Active Orders 24 hr Category Date Time Status Peripheral IV Care [RC] . DIRECTED Care 03/17/20 10:20 Active CULTURE BLOOD [BC] Stat Lab 03/17/20 10:39 Received CULTURE BLOOD [BC] Stat Lab 03/17/20 10:47 Received Sodium Chloride 0.9% [Saline Flush] Med 03/17/20 10:20 Active 10 ml FLUSH ASDIRECTED PRN Peripheral IV Insertion Adult [OM.PC] Stat Oth 03/17/20 10:20 Ordered Medication Orders Sodium Chloride (Saline Flush) 10 ml FLUSH ASDIRECTED PRN PRN Reason: Keep Vein Open Last Admin: 03/17/20 10:59 Dose: 10 ml Documented by: KEKE Labs: Laboratory Tests 03/17/20 03/17/20 03/17/20 Range/Units 10:39 10:39 10:39 WBC 9.62 H (4.23-9.07) K/mm3 RBC 5.25 (4.63-6.08) M/mm3 Hgb 15.5 (13.7-17.5) gm/dl Hct 46.4 (40.1-51.0) % MCV 88.4 (79.0-92.2) fl MCH 29.5 (25.7-32.2) pg MCHC 33.4 (32.2-35.5) g/dl RDW Std Deviation 43.6 (35.1-43.9) fL Plt Count 241 (163-337) K/mm3 MPV 9.3 L (9.4-12.3) fl Neut % (Auto) 70.3 H (34.0-67.9) % Lymph % (Auto) 17.5 L (21.8-53.1) % Creek % (Auto) 11.5 (5.3-12.2) % Eos % (Auto) 0.3 L (0.8-7.0) Baso % (Auto) 0.2 (0.1-1.2) % Neut # (Auto) 6.76 H (1.78-5.38) K/mm3 Lymph # (Auto) 1.68 (1.32-3.57) K/mm3 Creek # (Auto) 1.11 H (0.30-0.82) K/mm3 Eos # (Auto) 0.03 L (0.04-0.54) K/mm3 Baso # (Auto) 0.02 (0.01-0.08) K/mm3 Sodium 144 (136-145) mEq/L Potassium 3.9 (3.5-5.1) mEq/L Chloride 108 H (98-107) mEq/L Carbon Dioxide 24 (21-32) mEq/L Anion Gap 15.9 H (5-15) BUN 15 (7-18) mg/dL Creatinine 0.8 (0.7-1.3) mg/dL Est Cr Clr Drug Dosing 124.06 mL/min Estimated GFR (MDRD) > 60 (>60) mL/min BUN/Creatinine Ratio 18.8 H (14-18) Glucose 109 H (74-106) mg/dL Lactic Acid (0.4-2.0) mmol/L Calcium 8.6 (8.5-10.1) mg/dL Total Bilirubin 0.3 (0.2-1.0) mg/dL AST 16 (15-37) U/L ALT 24 (16-63) U/L Alkaline Phosphatase 61 (46-116) U/L C-Reactive Protein 10.4 H* (<1.0) mg/dL Total Protein 7.7 (6.4-8.2) g/dl Albumin 3.5 (3.4-5.0) g/dl Globulin 4.2 gm/dL Albumin/Globulin Ratio 0.8 L (1-2) 03/17/20 Range/Units 10:39 WBC (4.23-9.07) K/mm3 RBC (4.63-6.08) M/mm3 Hgb (13.7-17.5) gm/dl Hct (40.1-51.0) % MCV (79.0-92.2) fl MCH (25.7-32.2) pg MCHC (32.2-35.5) g/dl RDW Std Deviation (35.1-43.9) fL Plt Count (163-337) K/mm3 MPV (9.4-12.3) fl Neut % (Auto) (34.0-67.9) % Lymph % (Auto) (21.8-53.1) % Creek % (Auto) (5.3-12.2) % Eos % (Auto) (0.8-7.0) Baso % (Auto) (0.1-1.2) % Neut # (Auto) (1.78-5.38) K/mm3 Lymph # (Auto) (1.32-3.57) K/mm3 Creek # (Auto) (0.30-0.82) K/mm3 Eos # (Auto) (0.04-0.54) K/mm3 Baso # (Auto) (0.01-0.08) K/mm3 Sodium (136-145) mEq/L Potassium (3.5-5.1) mEq/L Chloride (98-107) mEq/L Carbon Dioxide (21-32) mEq/L Anion Gap (5-15) BUN (7-18) mg/dL Creatinine (0.7-1.3) mg/dL Est Cr Clr Drug Dosing mL/min Estimated GFR (MDRD) (>60) mL/min BUN/Creatinine Ratio (14-18) Glucose (74-106) mg/dL Lactic Acid 0.8 (0.4-2.0) mmol/L Calcium (8.5-10.1) mg/dL Total Bilirubin (0.2-1.0) mg/dL AST (15-37) U/L ALT (16-63) U/L Alkaline Phosphatase (46-116) U/L C-Reactive Protein (<1.0) mg/dL Total Protein (6.4-8.2) g/dl Albumin (3.4-5.0) g/dl Globulin gm/dL Albumin/Globulin Ratio (1-2) Meds: Medications Generic Name Dose Route Start Last Admin Trade Name Freq PRN Reason Stop Dose Admin Sodium Chloride 10 ml 03/17/20 10:20 03/17/20 10:59 Saline Flush FLUSH 10 ml ASDIRECTED PRN Administration Keep Vein Open Discontinued Medications Generic Name Dose Route Start Last Admin Trade Name Freq PRN Reason Stop Dose Admin Hydromorphone HCl 0.5 mg 03/17/20 11:00 03/17/20 11:07 Dilaudid IVPUSH 03/17/20 11:01 0.5 mg ONETIME ONE Administration Piperacillin Sod/Tazobactam 100 mls @ 200 mls/hr 03/17/20 10:35 03/17/20 10:59 Sod 4.5 gm/ Sodium Chloride IV 03/17/20 11:04 200 mls/hr ONETIME ONE Administration Departure - Departure Time of Disposition: 11:46 Disposition: Refer to Observation Condition: Serious Clinical Impression: Cellulitis Qualifiers: Site of cellulitis: extremity Site of cellulitis of extremity: lower extremity Laterality: right Qualified Code(s): L03.115 - Cellulitis of right lower limb - Discharge Information Referrals: Renetta Morris, [employer] DIRECTOR [Primary Care Provider] - Forms: ED Department Discharge Sepsis Event Note (ED) - Evaluation Sepsis Screening Result: No Definite Risk - Focused Exam Vital Signs: Vital Signs Temp Pulse Resp BP Pulse Ox 03/17/20 09:48 97.6 F 86 16 127/70 100 - My Orders Last 24 Hours: My Active Orders 03/17/20 10:20 Peripheral IV Care [RC] . DIRECTED Sodium Chloride 0.9% [Saline Flush] 10 ml FLUSH ASDIRECTED PRN Peripheral IV Insertion Adult [OM.PC] Stat 03/17/20 10:39 CULTURE BLOOD [BC] Stat 03/17/20 10:47 CULTURE BLOOD [BC] Stat - Assessment/Plan Last 24 Hours: My Active Orders 03/17/20 10:20 Peripheral IV Care [RC] . DIRECTED Sodium Chloride 0.9% [Saline Flush] 10 ml FLUSH ASDIRECTED PRN Peripheral IV Insertion Adult [OM.PC] Stat 03/17/20 10:39 CULTURE BLOOD [BC] Stat 03/17/20 10:47 CULTURE BLOOD [BC] Stat
[2020-03-17] MEDS ORDERED: Piperacillin/Tazobactam 4.5 GM in Sodium Chloride 0.9% 100 ML IV ONE (10:35)
[2020-03-17] MEDS ORDERED: HYDROmorphone 0.5 MG/0.5 ML Syringe IVPUSH ONE (11:00)
[2020-03-17] MEDS ORDERED: Acetaminophen 325 MG Tab PO PRN (13:10)
[2020-03-17] MEDS ORDERED: Ondansetron 4 MG/2 ML SDV IV PRN (13:10)
--- NOTE | 2020-03-17 13:14 | PCM.HP.2 ---
<Shukri Melgar - Last Filed: 03/17/20 14:33> H&P History of Present Illness - General Date of Service: 03/17/20 Admit Problem/Dx: Admission Diagnosis/Problem Admission Diagnosis/Problem Cellulitis Source of Information: Patient, Provider, RN, RN Notes Reviewed History Limitations: Reports: No Limitations - History of Present Illness Initial Comments - Free Text/Narative: This is a 29-year-old male who presented to ED on 03/17/2020 with right leg swe lling and erythema. He had been seen prior on 03/16/2020 in the very early hours with chills, fever, right groin pain, nausea, palpitations and headache. During that visit he had a WBC of 25,000 with left shift. Unfortunately were no [facility] beds available so he was sent home on Keflex 500 mg 4 times daily. He returned today reporting that his symptoms have continued and he now has an area of developing erythema on his right anterior tibia with localized tenderness. He also reports he has had difficulty keeping his Keflex pills down as he vomits them up after taking them. He has a significant history of crush injury to that leg approximately 4 years ago. At that time he was flown to [place] and he reports there were no surgical options. Since this time he has had multiple episodes of cellulitis requiring hospitalizations. He states he is being followed by the [place] infectious disease physician out [facility] although thus far they have had no explanation and nothing much to offer him. In the ED temp was 97.6 Fahrenheit. Pulse 86. Respirations 16. Blood pressure 127/70. Pulse ox 100% on room air. Labs were obtained showing a mild leukocytosis of 9.62. Hemoglobin is 15.5. Platelets are good at 241,000. Neutrophils are elevated at 6.76. Sodium is 144. Potassium 3.9. Chloride 108. Carbon dioxide 24. Anion gap is 15.9. BUN is 15. Creatinine 0.8. GFR is greater than 60. Glucose is 109. Calcium is 8.6. Bilirubin 0.3. AST is 16, ALT 24, alkaline phosphatase 61. CRP is 10.4. Protein is 7.7. Albumin is 3.5. Lactic acid is 0.8. He is given Dilaudid for pain and started on Zosyn. He carries a history of heart murmur, colon polyp, ischemic colitis, crush injury of right lower leg on 11/2016. CRPS of the right thigh. Depression, PTSD, psoriasis. He is not a smoker. [facility] He is a DNR/DNI. This was confirmed with the patient multiple times. Right Lower Leg Pain Score (Numeric/FACES): 9 - Related Data Allergies/Adverse Reactions: Allergies Allergy/AdvReac Type Severity Reaction Status Date / Time antihistamines Allergy Cannot Uncoded 03/17/20 09:53 Remember Home Medications: Home Meds Adalimumab [Humira Pen] 1 injection IM ASDIRECTED 01/15/20 [History] cephALEXin [Cephalexin] 1 tab PO Q6H #28 tablet 03/16/20 [Rx] Past Medical History - Past Health History Medical/Surgical History: Denies Medical/Surgical History HEENT History: Reports: Allergic Rhinitis Cardiovascular History: Reports: Heart Murmur Gastrointestinal History: Reports: Colon Polyp, Other (See Below) Other Gastrointestinal History: ischemic colitis, polyp with removal Musculoskeletal History: Reports: Other (See Below) Other Musculoskeletal History: reports a chest injury; crush injury of R lower leg 11/2016 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) Psychiatric History: Reports: Depression, PTSD Dermatologic History: Reports: Psoriasis Other Dermatologic History: R calf/michelle history of infection - Infectious Disease History Infectious Disease History: Reports: Chicken Pox, Novel Coronavirus - Past Surgical History HEENT Surgical History: Reports: Naso-Sinus Surgery, Oral Surgery GI Surgical History: Reports: Colonoscopy Social & Family History - Family History Family Medical History: No Pertinent Family History - Tobacco Use Tobacco Use Status *Q: Unknown Ever Used Tobacco - Caffeine Use Caffeine Use: Reports: Coffee, Soda, Tea - Living Situation & Occupation Living situation: Reports: , with Spouse, with Family (1 child) Occupation: Unemployed H&P Review of Systems - Review of Systems: Review Of Systems: See Below General: Reports: Fever, Chills. Denies: Malaise, Weakness, Fatigue HEENT: Reports: Headaches. Denies: Sore Throat Pulmonary: Reports: No Symptoms. Denies: Shortness of Breath, Wheezing, Pleuritic Chest Pain, Cough, Sputum Cardiovascular: Reports: No Symptoms. Denies: Chest Pain, Palpitations, Dyspnea on Exertion, Edema, Lightheadedness Gastrointestinal: Reports: Abdominal Pain (Mild - LLQ), Constipation, Nausea, Vomiting. Denies: Diarrhea Genitourinary: Reports: No Symptoms. Denies: Pain Musculoskeletal: Reports: Leg Pain (right) Skin: Reports: No Symptoms, Erythema (right anterior leg ). Denies: Cyanosis, Wound Psychiatric: Reports: No Symptoms. Denies: Confusion Neurological: Reports: No Symptoms. Denies: Numbness, Pre-Existing Deficit, Tingling, Difficulty Walking, Weakness, Gait Disturbance Hematologic/Lymphatic: Reports: No Symptoms. Denies: Anemia Immunologic: Reports: No Symptoms Exam - Exam Exam: See Below - Vital Signs Vital Signs: Last Vital Signs Temp 98.5 F 03/17/20 12:37 Pulse 87 03/17/20 12:37 Resp 16 03/17/20 12:37 BP 127/72 03/17/20 12:37 Pulse Ox 100 03/17/20 12:37 Weight: 83.915 kg - Exam Quality Assessment: No: Supplemental Oxygen, Urinary Catheter, DVT Prophylaxis (VTE score of 1 ) General: Alert, Oriented, Cooperative. No: Mild Distress HEENT: Conjunctiva Clear, EACs Clear, Mucosa Moist & Locust, Posterior Pharynx Clear Neck: Supple, Trachea Midline Lungs: Clear to Auscultation, Normal Respiratory Effort Cardiovascular: Regular Rate, Regular Rhythm GI/Abdominal Exam: Normal Bowel Sounds, Soft, No Distention, Tender (Very mild tenderness to LLQ - patient reports it is likely from constipation. ) (Male) Exam: Inguinal Lymphadenopathy (right side ) Rectal (Males) Exam: Deferred Back Exam: Normal Inspection, Full Range of Motion Extremities: No Pedal Edema, Normal Capillary Refill, Leg Pain (right ), Increased Warmth (anterior lower right leg ), Redness (Anterior right leg ), Other (two areias of erythema on right lower extremity demarcated by marker ) Peripheral Pulses: 2+: Radial (L), Radial (R), Dorsalis Pedis (L), Dorsalis Pedis (R) Skin: Warm, Dry, Intact, Rash (as above ) Neurological: Cranial Nerves Intact (Grossly ) Neuro Extensive - Mental Status: Alert, Oriented x3, Normal Mood/Affect - Patient Data Lab Results Last 24 hrs: Laboratory Results - last 24 hr 0103/17/20 03/17/20 Range/Units 10:39 10:39 10:39 WBC 9.62 H (4.23-9.07) K/mm3 RBC 5.25 (4.63-6.08) M/mm3 Hgb 15.5 (13.7-17.5) gm/dl Hct 46.4 (40.1-51.0) % MCV 88.4 (79.0-92.2) fl MCH 29.5 (25.7-32.2) pg MCHC 33.4 (32.2-35.5) g/dl RDW Std Deviation 43.6 (35.1-43.9) fL Plt Count 241 (163-337) K/mm3 MPV 9.3 L (9.4-12.3) fl Neut % (Auto) 70.3 H (34.0-67.9) % Lymph % (Auto) 17.5 L (21.8-53.1) % [place]ois % (Auto) 11.5 (5.3-12.2) % Eos % (Auto) 0.3 L (0.8-7.0) Baso % (Auto) 0.2 (0.1-1.2) % Neut # (Auto) 6.76 H (1.78-5.38) K/mm3 Lymph # (Auto) 1.68 (1.32-3.57) K/mm3 [place] # (Auto) 1.11 H (0.30-0.82) K/mm3 Eos # (Auto) 0.03 L (0.04-0.54) K/mm3 Baso # (Auto) 0.02 (0.01-0.08) K/mm3 Sodium 144 (136-145) mEq/L Potassium 3.9 (3.5-5.1) mEq/L Chloride 108 H (98-107) mEq/L Carbon Dioxide 24 (21-32) mEq/L Anion Gap 15.9 H (5-15) BUN 15 (7-18) mg/dL Creatinine 0.8 (0.7-1.3) mg/dL Est Cr Clr Drug Dosing 124.06 mL/min Estimated GFR (MDRD) > 60 (>60) mL/min BUN/Creatinine Ratio 18.8 H (14-18) Glucose 109 H (74-106) mg/dL Lactic Acid (0.4-2.0) mmol/L Calcium 8.6 (8.5-10.1) mg/dL Total Bilirubin 0.3 (0.2-1.0) mg/dL AST 16 (15-37) U/L ALT 24 (16-63) U/L Alkaline Phosphatase 61 (46-116) U/L C-Reactive Protein 10.4 H* (<1.0) mg/dL Total Protein 7.7 (6.4-8.2) g/dl Albumin 3.5 (3.4-5.0) g/dl Globulin 4.2 gm/dL Albumin/Globulin Ratio 0.8 L (1-2) 03/17/20 Range/Units 10:39 WBC (4.23-9.07) K/mm3 RBC (4.63-6.08) M/mm3 Hgb (13.7-17.5) gm/dl Hct (40.1-51.0) % MCV (79.0-92.2) fl MCH (25.7-32.2) pg MCHC (32.2-35.5) g/dl RDW Std Deviation (35.1-43.9) fL Plt Count (163-337) K/mm3 MPV (9.4-12.3) fl Neut % (Auto) (34.0-67.9) % Lymph % (Auto) (21.8-53.1) % [place] % (Auto) (5.3-12.2) % Eos % (Auto) (0.8-7.0) Baso % (Auto) (0.1-1.2) % Neut # (Auto) (1.78-5.38) K/mm3 Lymph # (Auto) (1.32-3.57) K/mm3 [place] # (Auto) (0.30-0.82) K/mm3 Eos # (Auto) (0.04-0.54) K/mm3 Baso # (Auto) (0.01-0.08) K/mm3 Sodium (136-145) mEq/L Potassium (3.5-5.1) mEq/L Chloride (98-107) mEq/L Carbon Dioxide (21-32) mEq/L Anion Gap (5-15) BUN (7-18) mg/dL Creatinine (0.7-1.3) mg/dL Est Cr Clr Drug Dosing mL/min Estimated GFR (MDRD) (>60) mL/min BUN/Creatinine Ratio (14-18) Glucose (74-106) mg/dL Lactic Acid 0.8 (0.4-2.0) mmol/L Calcium (8.5-10.1) mg/dL Total Bilirubin (0.2-1.0) mg/dL AST (15-37) U/L ALT (16-63) U/L Alkaline Phosphatase (46-116) U/L C-Reactive Protein (<1.0) mg/dL Total Protein (6.4-8.2) g/dl Albumin (3.4-5.0) g/dl Globulin gm/dL Albumin/Globulin Ratio (1-2) Result Diagrams: 03/17/20 10:39 03/17/20 10:39 Sepsis Event Note - Evaluation Sepsis Screening Result: No Definite Risk - Focused Exam Vital Signs: Vital Signs Temp Pulse Resp BP Pulse Ox 03/17/20 12:37 98.5 F 87 16 127/72 100 03/17/20 09:48 97.6 F 86 16 127/70 100 - Problem List (1) Headache SNOMED Code(s): 66690471 ICD Code: R51.9 - HEADACHE, UNSPECIFIED Status: Acute Priority: Medium Current Visit: Yes Qualifiers: Headache type: tension-type Headache chronicity pattern: acute headache Intractability: not intractable Qualified Code(s): G44.209 - Tension-type headache, unspecified, not intractable (2) Cellulitis of right lower leg SNOMED Code(s): 253335683 ICD Code: L03.115 - CELLULITIS OF RIGHT LOWER LIMB Status: Acute Priority: High Current Visit: Yes (3) Chronic pain of right inguinal region SNOMED Code(s): 66452453333927258 ICD Code: R10.31 - RIGHT LOWER QUADRANT PAIN; G89.29 - OTHER CHRONIC PAIN Status: Chronic Priority: Medium Current Visit: Yes (4) Inguinal lymphadenopathy SNOMED Code(s): 020860229 ICD Code: R59.0 - LOCALIZED ENLARGED LYMPH NODES Status: Acute Current Vi sit: No (5) Reflex sympathetic dystrophy of right leg SNOMED Code(s): 195769705 ICD Code: G90.521 - COMPLEX REGIONAL PAIN SYNDROME I OF RIGHT LOWER LIMB Status: Chronic Priority: Medium Current Visit: Yes (6) Crushing injury of right thigh SNOMED Code(s): 00920551, 73710454481116474 ICD Code: S77.11XA - CRUSHING INJURY OF RIGHT THIGH, INITIAL ENCOUNTER Status: Chronic Priority: Medium Current Visit: Yes Qualifiers: Encounter type: subsequent encounter Qualified Code(s): S77.11XD - Crushing injury of right thigh, subsequent encounter (7) Depression SNOMED Code(s): 27019988 ICD Code: F32.9 - MAJOR DEPRESSIVE DISORDER, SINGLE EPISODE, UNSPECIFIED Status: Chronic Priority: Low Current Visit: No Qualifiers: Depression Type: other depression Qualified Code(s): F32.89 - Other specified depressive episodes (8) PTSD (post-traumatic stress disorder) SNOMED Code(s): 45614761 ICD Code: F43.10 - POST-TRAUMATIC STRESS DISORDER, UNSPECIFIED Status: Chronic Priority: Low Current Visit: No (9) Psoriasis SNOMED Code(s): 1222212 ICD Code: L40.9 - PSORIASIS, UNSPECIFIED Status: Chronic Priority: Low Current Visit: No (10) History of ischemic colitis SNOMED Code(s): 8061664232942324 ICD Code: Z87.19 - PERSONAL HISTORY OF OTHER DISEASES OF THE DIGESTIVE SYSTEM Status: Chronic Priority: Low Current Visit: No (11) Constipation SNOMED Code(s): 00419252 ICD Code: K59.00 - CONSTIPATION, UNSPECIFIED Status: Acute Priority: Medium Current Visit: Yes Qualifiers: Constipation type: unspecified constipation type Qualified Code(s): K59.00 - Constipation, unspecified Problem List Initiated/Reviewed/Updated: Yes Orders Last 24hrs: Active Orders 24 hr Category Date Time Status Patient Status [ADT] Routine ADT 03/17/20 11:56 Active Height and Weight [RC] DAILY Care 03/17/20 13:10 Ordered Intake and Output [RC] QSHIFT Care 03/17/20 13:11 Ordered Oxygen Therapy [RC] PRN Care 03/17/20 13:10 Ordered Pulse Oximetry [RC] PRN Care 03/17/20 13:11 Ordered Up ad Stefanie [RC] ASDIRECTED Care 03/17/20 13:10 Ordered VTE/DVT Education [RC] PER UNIT ROUTINE Care 03/17/20 13:10 Ordered Vital Signs [RC] Q4H Care 03/17/20 13:10 Ordered Regular Diet [DIET] Diet 03/17/20 Lunch Ordered BASIC METABOLIC PANEL,BMP [CHEM] AM Lab 03/18/20 05:11 Ordered BASIC METABOLIC PANEL,BMP [CHEM] AM Lab 03/19/20 05:11 Ordered BASIC METABOLIC PANEL,BMP [CHEM] AM Lab 03/20/20 05:11 Ordered BASIC METABOLIC PANEL,BMP [CHEM] AM Lab 03/21/20 05:11 Ordered CBC WITH AUTO DIFF [HEME] AM Lab 03/18/20 05:11 Ordered CBC WITH AUTO DIFF [HEME] AM Lab 03/19/20 05:11 Ordered CBC WITH AUTO DIFF [HEME] AM Lab 03/20/20 05:11 Ordered CBC WITH AUTO DIFF [HEME] AM Lab 03/21/20 05:11 Ordered CRP [C-REACTIVE PROTEIN] [CHEM] AM Lab 03/18/20 05:11 Ordered CRP [C-REACTIVE PROTEIN] [CHEM] AM Lab 03/19/20 05:11 Ordered CRP [C-REACTIVE PROTEIN] [CHEM] AM Lab 03/20/20 05:11 Ordered CRP [C-REACTIVE PROTEIN] [CHEM] AM Lab 03/21/20 05:11 Ordered CULTURE BLOOD [BC] Stat Lab 03/17/20 10:39 Received CULTURE BLOOD [BC] Stat Lab 03/17/20 10:47 Received MAGNESIUM [CHEM] AM Lab 03/18/20 05:11 Ordered MAGNESIUM [CHEM] AM Lab 03/19/20 05:11 Ordered MAGNESIUM [CHEM] AM Lab 03/20/20 05:11 Ordered MAGNESIUM [CHEM] AM Lab 03/21/20 05:11 Ordered Acetaminophen [TylenoL] Med 03/17/20 13:10 Ordered 650 mg PO Q4H PRN Docusate Sodium [Colace] Med 03/17/20 13:15 Ordered 100 mg PO DAILY Ondansetron [Zofran] Med 03/17/20 13:10 Ordered 4 mg IV Q6H PRN Pharmacy to Dose - Vancomycin Med 03/17/20 13:15 Ordered 1 dose .XX ASDIRECTED Sodium Chloride 0.9% @ 100 MLS/HR(1000ml Bag) Med 03/17/20 13:15 Ordered Sodium Chloride 0.9% [Normal Saline] 1,000 ml IV ASDIRECTED Sodium Chloride 0.9% [Saline Flush] Med 03/17/20 10:20 Active 10 ml FLUSH ASDIRECTED PRN Peripheral IV Insertion Adult [OM.PC] Stat Oth 03/17/20 10:20 Ordered Resuscitation Status Routine Resus Stat 03/17/20 13:10 Ordered Medication Orders Acetaminophen (Tylenol) 650 mg PO Q4H PRN PRN Reason: Pain (Mild 1-3)/fever Docusate Sodium (Colace) 100 mg PO DAILY IFEANYI Sodium Chloride (Normal Saline) 1,000 mls @ 100 mls/hr IV ASDIRECTED IFEANYI Ondansetron HCl (Zofran) 4 mg IV Q6H PRN PRN Reason: Nausea/Vomiting Sodium Chloride (Saline Flush) 10 ml FLUSH ASDIRECTED PRN PRN Reason: Keep Vein Open Last Admin: 03/17/20 10:59 Dose: 10 ml Documented by: KEKE Vancomycin HCl (Pharmacy To Dose - Vancomycin) 1 dose .XX ASDIRECTED [facility] Assessment/Plan Comment:: Assessment - day of admission - 03/17/20 * 29 yo male presents to ED with right lower extremity infection, headache, nausea, and vomiting * Was seen early AM 03/16/20 for similar symptoms - no bed available, sent home on 500mg QID keflex * 25k WBC, 80% neutrophils, 4% band neutrophils and CRP of 6.2 then * Blood cultures obtained on that visit were negative so far * Area of erythema developing on right anterior michelle that was not present on prior visit * History of crush injury to right thigh in 2017 * Reports multiple hospitalizations and episodes of right extremity cellulitis * Follows infectious disease specialist of [place] * Afebrile but nauseated and has headache in ED - reports unable to keep Keflex down * Labs in ED: * WBC 9.62 * Hgb 15.5 * Plt count 241 * Neutrophils 6.76 * Sodium 144 * Potassium 3.9 * Carbon dioxide 24 * Anion gap 15.9 * BUN 15 * Creatine 0.8 * GFR >60 * Glucose 109 * Lactic acid 0.8 * Bilirubin 0.3 * AST 16, ALT 24, Alk phos 61 * CRP 10.1 * Protein 7.7 * Albumin 3.5 * Given dilaudid for pain and started on zosyn * Reports last BM today - very small and hard, Has had constipation for some time * Admitted to hospital observation status for management of cellulitis, failed outpatient treatment * Sepsis evaluation: * Suspected bacterial infection; No tachycardia, fever, tachypnea, and no leukocytosis or leukopenia * Does not meet criteria PLAN: Cellulitis of right lower leg Chronic pain of right inguinal region Inguinal lymphadenopathy Reflex sympathetic dystrophy of right leg Crushing injury of right thigh - 2016 * Start vancomycin - pharmacy to dose * Demarcate area of erythema * IV fluids as ordered * Pain medications as ordered * Monitor blood cultures from 03/17/20 and earlier ED visit on 03/16/20 * Monitor for drainage from leg * Monitor labs Headache * Fioricet PRN * Dim lights in room Constipation * Daily Colace Depression PTSD (post-traumatic stress disorder) * No current concerns * Monitor need for psychiatric consultation * Has no home psychiatric medications Psoriasis * On methyltrexate q14 days * No current concerns History of ischemic colitis * Convoluted diagnosis from many years ago in [place] - no concerns currently Code status: DNR/DNI - confirmed multiple times with patient PCP: Renetta Morris NP with the [place] Infectious disease: Followed by provider from [facility] DVT prophylaxis: VTE score of 1 - not indicated Disposition: Patient admitted observation status for treatment of failed outpatient cellulitis. Likely LOS 1-2 days total. - Mortality Measure Prognosis:: Good <Armand Holt - Last Filed: 03/17/20 15:55> H&P History of Present Illness - General Admit Problem/Dx: Admission Diagnosis/Problem Admission Diagnosis/Problem Cellulitis Exam - Vital Signs Vital Signs: Last Vital Signs Temp 36.9 C 03/17/20 12:37 Pulse 87 03/17/20 12:37 Resp 16 03/17/20 12:37 BP 127/72 03/17/20 12:37 Pulse Ox 100 03/17/20 12:37 - Patient Data Lab Results Last 24 hrs: Laboratory Results - last 24 hr 03/17/20 03/17/20 03/17/20 Range/Units 10:39 10:39 10:39 WBC 9.62 H (4.23-9.07) K/mm3 RBC 5.25 (4.63-6.08) M/mm3 Hgb 15.5 (13.7-17.5) gm/dl Hct 46.4 (40.1-51.0) % MCV 88.4 (79.0-92.2) fl MCH 29.5 (25.7-32.2) pg MCHC 33.4 (32.2-35.5) g/dl RDW Std Deviation 43.6 (35.1-43.9) fL Plt Count 241 (163-337) K/mm3 MPV 9.3 L (9.4-12.3) fl Neut % (Auto) 70.3 H (34.0-67.9) % Lymph % (Auto) 17.5 L (21.8-53.1) % [place] % (Auto) 11.5 (5.3-12.2) % Eos % (Auto) 0.3 L (0.8-7.0) Baso % (Auto) 0.2 (0.1-1.2) % Neut # (Auto) 6.76 H (1.78-5.38) K/mm3 Lymph # (Auto) 1.68 (1.32-3.57) K/mm3 [place] # (Auto) 1.11 H (0.30-0.82) K/mm3 Eos # (Auto) 0.03 L (0.04-0.54) K/mm3 Baso # (Auto) 0.02 (0.01-0.08) K/mm3 Sodium 144 (136-145) mEq/L Potassium 3.9 (3.5-5.1) mEq/L Chloride 108 H (98-107) mEq/L Carbon Dioxide 24 (21-32) mEq/L Anion Gap 15.9 H (5-15) BUN 15 (7-18) mg/dL Creatinine 0.8 (0.7-1.3) mg/dL Est Cr Clr Drug Dosing 124.06 mL/min Estimated GFR (MDRD) > 60 (>60) mL/min BUN/Creatinine Ratio 18.8 H (14-18) Glucose 109 H (74-106) mg/dL Lactic Acid (0.4-2.0) mmol/L Calcium 8.6 (8.5-10.1) mg/dL Total Bilirubin 0.3 (0.2-1.0) mg/dL AST 16 (15-37) U/L ALT 24 (16-63) U/L Alkaline Phosphatase 61 (46-116) U/L C-Reactive Protein 10.4 H* (<1.0) mg/dL Total Protein 7.7 (6.4-8.2) g/dl Albumin 3.5 (3.4-5.0) g/dl Globulin 4.2 gm/dL Albumin/Globulin Ratio 0.8 L (1-2) 03/17/20 Range/Units 10:39 WBC (4.23-9.07) K/mm3 RBC (4.63-6.08) M/mm3 Hgb (13.7-17.5) gm/dl Hct (40.1-51.0) % MCV (79.0-92.2) fl MCH (25.7-32.2) pg MCHC (32.2-35.5) g/dl RDW Std Deviation (35.1-43.9) fL Plt Count (163-337) K/mm3 MPV (9.4-12.3) fl Neut % (Auto) (34.0-67.9) % Lymph % (Auto) (21.8-53.1) % [place] % (Auto) (5.3-12.2) % Eos % (Auto) (0.8-7.0) Baso % (Auto) (0.1-1.2) % Neut # (Auto) (1.78-5.38) K/mm3 Lymph # (Auto) (1.32-3.57) K/mm3 [place] # (Auto) (0.30-0.82) K/mm3 Eos # (Auto) (0.04-0.54) K/mm3 Baso # (Auto) (0.01-0.08) K/mm3 Sodium (136-145) mEq/L Potassium (3.5-5.1) mEq/L Chloride (98-107) mEq/L Carbon Dioxide (21-32) mEq/L Anion Gap (5-15) BUN (7-18) mg/dL Creatinine (0.7-1.3) mg/dL Est Cr Clr Drug Dosing mL/min Estimated GFR (MDRD) (>60) mL/min BUN/Creatinine Ratio (14-18) Glucose (74-106) mg/dL Lactic Acid 0.8 (0.4-2.0) mmol/L Calcium (8.5-10.1) mg/dL Total Bilirubin (0.2-1.0) mg/dL AST (15-37) U/L ALT (16-63) U/L Alkaline Phosphatase (46-116) U/L C-Reactive Protein (<1.0) mg/dL Total Protein (6.4-8.2) g/dl Albumin (3.4-5.0) g/dl Globulin gm/dL Albumin/Globulin Ratio (1-2) Result Diagrams: 03/17/20 10:39 03/17/20 10:39 Sepsis Event Note - Focused Exam Vital Signs: Vital Signs Temp Pulse Resp BP Pulse Ox 03/17/20 12:37 36.9 C 87 16 127/72 100 03/17/20 09:48 36.4 C 86 16 127/70 100 Orders Last 24hrs: Active Orders 24 hr Category Date Time Status Patient Status [ADT] Routine ADT 03/17/20 11:56 Active Height and Weight [RC] DAILY Care 03/17/20 13:10 Active Intake and Output [RC] 04,16 Care 03/17/20 13:11 Active Oxygen Therapy [RC] PRN Care 03/17/20 13:10 Active Pulse Oximetry [RC] PRN Care 03/17/20 13:11 Active Up ad Stefanie [RC] ASDIRECTED Care 03/17/20 13:10 Active VTE/DVT Education [RC] PER UNIT ROUTINE Care 03/17/20 13:10 Active Vital Signs [RC] Q4HR Care 03/17/20 13:10 Active Regular Diet [DIET] Diet 03/17/20 Lunch Active BASIC METABOLIC PANEL,BMP [CHEM] AM Lab 03/18/20 05:11 Ordered BASIC METABOLIC PANEL,BMP [CHEM] AM Lab 03/19/20 05:11 Ordered BASIC METABOLIC PANEL,BMP [CHEM] AM Lab 03/20/20 05:11 Ordered BASIC METABOLIC PANEL,BMP [CHEM] AM Lab 03/21/20 05:11 Ordered CBC WITH AUTO DIFF [HEME] AM Lab 03/18/20 05:11 Ordered CBC WITH AUTO DIFF [HEME] AM Lab 03/19/20 05:11 Ordered CBC WITH AUTO DIFF [HEME] AM Lab 03/20/20 05:11 Ordered CBC WITH AUTO DIFF [HEME] AM Lab 03/21/20 05:11 Ordered CRP [C-REACTIVE PROTEIN] [CHEM] AM Lab 03/18/20 05:11 Ordered CRP [C-REACTIVE PROTEIN] [CHEM] AM Lab 03/19/20 05:11 Ordered CRP [C-REACTIVE PROTEIN] [CHEM] AM Lab 03/20/20 05:11 Ordered CRP [C-REACTIVE PROTEIN] [CHEM] AM Lab 03/21/20 05:11 Ordered CULTURE BLOOD [BC] Stat Lab 03/17/20 10:39 Received CULTURE BLOOD [BC] Stat Lab 03/17/20 10:47 Received MAGNESIUM [CHEM] AM Lab 03/18/20 05:11 Ordered MAGNESIUM [CHEM] AM Lab 03/19/20 05:11 Ordered MAGNESIUM [CHEM] AM Lab 03/20/20 05:11 Ordered MAGNESIUM [CHEM] AM Lab 03/21/20 05:11 Ordered VANCOMYCIN TROUGH [CHEM] Timed Lab 03/18/20 13:00 Ordered Acetaminophen [TylenoL] Med 03/17/20 13:10 Active 650 mg PO Q4H PRN Acetaminophen/Butalbital/Caff [Fioricet 325-50-40 MG] Med 03/17/20 13:47 Active 2 tab PO Q8H PRN Docusate Sodium [Colace] Med 03/17/20 13:15 Active 100 mg PO DAILY Ondansetron [Zofran] Med 03/17/20 13:10 Active 4 mg IV Q6H PRN Pharmacy to Dose - Vancomycin Med 03/17/20 13:15 Active 1 dose .XX ASDIRECTED PRN Sodium Chloride 0.9% [Normal Saline] 1,000 ml Med 03/17/20 13:15 Active IV ASDIRECTED Sodium Chloride 0.9% [Saline Flush] Med 03/17/20 10:20 Active 10 ml FLUSH ASDIRECTED PRN Vancomycin 1 gm Med 03/17/20 22:00 Active Vancomycin 250 mg Sodium Chloride 0.9% [Normal Saline] 250 ml IV Q8H Vancomycin 1 gm Med 03/17/20 14:00 Active Vancomycin 500 mg Sodium Chloride 0.9% [Normal Saline] 500 ml IV ONETIME traMADol [Ultram] Med 03/17/20 13:19 Active 100 mg PO Q8H PRN Peripheral IV Insertion Adult [OM.PC] Stat Oth 03/17/20 10:20 Ordered Code Status [Resuscitation Status] Routine Resus Stat 03/17/20 13:45 Ordered Medication Orders Acetaminophen (Tylenol) 650 mg PO Q4H PRN PRN Reason: Pain (Mild 1-3)/fever Acetaminophen/Butalbital/Caffeine (Fioricet 325-50-40 Mg) 2 tab PO Q8H PRN PRN Reason: Headaches Last Admin: 03/17/20 14:13 Dose: 2 tab Documented by: MARIO Docusate Sodium (Colace) 100 mg PO DAILY [facility] Last Admin: 03/17/20 13:45 Dose: 100 mg Documented by: MARIO Sodium Chloride (Normal Saline) 1,000 mls @ 100 mls/hr IV ASDIRECTED IFEANYI Last Admin: 03/17/20 14:04 Dose: 100 mls/hr Documented by: MARIO Vancomycin HCl 1 gm/Vancomycin HCl 500 mg/ Sodium Chloride 500 mls @ 250 mls/hr IV ONETIME ONE Stop: 03/17/20 15:59 Last Admin: 03/17/20 14:04 Dose: 250 mls/hr Documented by: MARIO Vancomycin HCl 1 gm/Vancomycin HCl 250 mg/ Sodium Chloride 250 mls @ 166.667 ml s/hr IV Q8H IFEANYI Ondansetron HCl (Zofran) 4 mg IV Q6H PRN PRN Reason: Nausea/Vomiting Last Admin: 03/17/20 13:45 Dose: 4 mg Documented by: MARIO Sodium Chloride (Saline Flush) 10 ml FLUSH ASDIRECTED PRN PRN Reason: Keep Vein Open Last Admin: 03/17/20 10:59 Dose: 10 ml Documented by: KEKE Tramadol HCl (Ultram) 100 mg PO Q8H PRN PRN Reason: Pain Vancomycin HCl (Pharmacy To Dose - Vancomycin) 1 dose .XX ASDIRECTED PRN PRN Reason: RX TO DOSE VANCO Assessment/Plan Comment:: I have seen and examined the patient independently of Shukri Melgar PA-C. I jules ve reviewed the orders and agree with the plan of care as outlined by him. I have discussed the case with him. Please see orders.
[2020-03-17] MEDS ORDERED: Docusate Sodium 100 MG Cap PO SCH (13:15)
[2020-03-17] MEDS ORDERED: Sodium Chloride 0.9% 1,000 ML IV SCH (13:15)
[2020-03-17] MEDS ORDERED: traMADol 50 MG Tab PO PRN (13:19)
[2020-03-17] MEDS ORDERED: Acetaminophen/Butalbital/Caffeine 325-50-40 MG Tab PO PRN (13:47)
[2020-03-17] MEDS ORDERED: Vancomycin 1 GM, Vancomycin 500 MG in Sodium Chloride 0.9% 500 ML IV ONE (14:00)
[2020-03-17] MEDS ORDERED: Vancomycin 1 GM, Vancomycin 250 MG in Sodium Chloride 0.9% 250 ML IV SCH (22:00)
--- NOTE | 2020-03-18 07:39 | PCM.DCSUM1 ---
<Shukri Melgar - Last Filed: 03/18/20 08:10> Discharge Summary - Hospital Course HPI Initial Comments: This is a 29-year-old male who presented to ED on 03/17/2020 with right leg swelling and erythema. He had been seen prior on 03/16/2020 in the very early hours with chills, fever, right groin pain, nausea, palpitations and headache. During that visit he had a WBC of 25,000 with left shift. Unfortunately were no [facility] beds available so he was sent home on Keflex 500 mg 4 times daily. He returned today reporting that his symptoms have continued and he now has an area of developing erythema on his right anterior tibia with localized tenderness. He also reports he has had difficulty keeping his Keflex pills down as he vomits them up after taking them. He has a significant history of crush injury to that leg approximately 4 years ago. At that time he was flown to [place] and he reports there were no surgical options. Since this time he has had multiple episodes of cellulitis requiring hospitalizations. He states he is being followed by the [facility] infectious disease physician out of [place] although thus far they have had no explanation and nothing much to offer him. In the ED temp was 97.6 Fahrenheit. Pulse 86. Respirations 16. Blood pressure 127/70. Pulse ox 100% on room air. Labs were obtained showing a mild leukocytosis of 9.62. Hemoglobin is 15.5. Platelets are good at 241,000. Neutrophils are elevated at 6.76. Sodium is 144. Potassium 3.9. Chloride 108. Carbon dioxide 24. Anion gap is 15.9. BUN is 15. Creatinine 0.8. GFR is greater than 60. Glucose is 109. Calcium is 8.6. Bilirubin 0.3. AST is 16, ALT 24, alkaline phosphatase 61. CRP is 10.4. Protein is 7.7. Albumin is 3.5. Lactic acid is 0.8. He is given Dilaudid for pain and started on Zosyn. He carries a history of heart murmur, colon polyp, ischemic colitis, crush injury of right lower leg on 11/2016. CRPS of the right thigh. Depression, PTSD, psoriasis. He is not a smoker. His PCP is Renetta Morris and with the [facility]. He is a DNR/DNI. This was confirmed with the patient multiple times. Diagnosis: Stroke: No - Discharge Data Discharge Date: 03/17/20 (Admit date: 03/17/20) Discharge Disposition: Against Medical Advice 07 Condition: Stable - Referral to Home Health Primary Care Physician: Renetta Morris NP - Discharge Diagnosis/Problem(s) (1) Headache SNOMED Code(s): 91005873 ICD Code: R51.9 - HEADACHE, UNSPECIFIED Status: Acute Priority: Medium Qualifiers: Headache type: tension-type Headache chronicity pattern: acute headache Intractability: not intractable Qualified Code(s): G44.209 - Tension-type headache, unspecified, not intractable (2) Cellulitis of right lower leg SNOMED Code(s): 117885764 ICD Code: L03.115 - CELLULITIS OF RIGHT LOWER LIMB Status: Acute Priority: High (3) Chronic pain of right inguinal region SNOMED Code(s): 41098655970895929 ICD Code: R10.31 - RIGHT LOWER QUADRANT PAIN; G89.29 - OTHER CHRONIC PAIN Status: Chronic Priority: Medium (4) Inguinal lymphadenopathy SNOMED Code(s): 307790612 ICD Code: R59.0 - LOCALIZED ENLARGED LYMPH NODES Status: Acute (5) Reflex sympathetic dystrophy of right leg SNOMED Code(s): 858657063 ICD Code: G90.521 - COMPLEX REGIONAL PAIN SYNDROME I OF RIGHT LOWER LIMB S tatus: Chronic Priority: Medium (6) Crushing injury of right thigh SNOMED Code(s): 31334145, 39115302458060281 ICD Code: S77.11XA - CRUSHING INJURY OF RIGHT THIGH, INITIAL ENCOUNTER Status: Chronic Priority: Medium Qualifiers: Encounter type: subsequent encounter Qualified Code(s): S77.11XD - Crushing injury of right thigh, subsequent encounter (7) Depression SNOMED Code(s): 84348014 ICD Code: F32.9 - MAJOR DEPRESSIVE DISORDER, SINGLE EPISODE, UNSPECIFIED Status: Chronic Priority: Low Qualifiers: Depression Type: other depression Qualified Code(s): F32.89 - Other specified depressive episodes (8) PTSD (post-traumatic stress disorder) SNOMED Code(s): 39110292 ICD Code: F43.10 - POST-TRAUMATIC STRESS DISORDER, UNSPECIFIED Status: Chronic Priority: Low (9) Psoriasis SNOMED Code(s): 8932048 ICD Code: L40.9 - PSORIASIS, UNSPECIFIED Status: Chronic Priority: Low (10) History of ischemic colitis SNOMED Code(s): 6040541615568082 ICD Code: Z87.19 - PERSONAL HISTORY OF OTHER DISEASES OF THE DIGESTIVE SYSTEM Status: Chronic Priority: Low (11) Constipation SNOMED Code(s): 17278738 ICD Code: K59.00 - CONSTIPATION, UNSPECIFIED Status: Acute Priority: Medium Qualifiers: Constipation type: unspecified constipation type Qualified Code(s): K59.00 - Constipation, unspecified - Patient Summary/Data Labs Pending at D/C: Blood cultures Hospital Course: This is a 29-year-old male who was admitted on 03/17/2020 after returning to the emergency room with right leg pain and a newly developing erythematous region. He was started on Zosyn in the ED and this was changed to IV vancomycin once he was on the floor. Patient has a longstanding history of right leg problems secondary to a crush injury obtained in 2017. Per the patient's report he has been being followed by infectious disease specialist out [facility] with the [facility]. Patient reports he has been hospitalized in the past for cellulitis on his leg and that he believes it is getting more frequent. As noted he had been seen the day prior in our ED and although it was recommended that he be admitted no beds were available so he was sent home with p.o. Keflex and told to follow-up if symptoms worsen. On his return today his white count was noted to be much improved down from 25.12 to 9.62. CRP had gone up from 6.2 to 10.4. He was also noted to have a area of erythema developing on his right anterior lower extremity. There was a very small area of this that was noted to be quite warm. Patient was ultimately admitted observation status and IV fluids were started. Patient noted a headache so he was given Fioricet and Ultram for pain. Late at night on the day of admission patient notified nursing as they were into hang a new vancomycin bag that he wanted to see the provider. Nursing noted that the provider was off campus and inquired as to what he wanted to see them about. Patient demanded to see in infectious disease specialist and requested transfer. Patient was advised that this was likely not an option due to the late night our but could be discussed in the morning. Patient ultimately reported that he wanted to leave. He refused to stay for his next dose of IV vancomycin. Palak cowan was made aware that he may risk worsening of his infection and that this could progress to sepsis. Patient still refused and wanted to leave. AMA paperwork signed. Patient left the facility. - Discharge Plan *PRESCRIPTION DRUG MONITORING PROGRAM REVIEWED*: No *COPY OF PRESCRIPTION DRUG MONITORING REPORT IN PATIENT MATHEW: No Home Medications: Home Meds Adalimumab [Humira Pen] 1 injection IM ASDIRECTED 01/15/20 [History] cephALEXin [Cephalexin] 1 tab PO Q6H #28 tablet 03/16/20 [Rx] Patient Handouts: Sepsis, Self Care, Adult Forms: ED Department Discharge Referrals: Renetta Morris NP [Primary Care Provider] - - Discharge Summary/Plan Comment DC Time >30 min.: No - General Info Date of Service: 03/18/20 - Review of Systems Systems Review Comment: Patient left AMA overnight - Patient Data Vitals - Most Recent: Last Vital Signs Temp 98.2 F 03/17/20 20:07 Pulse 79 03/17/20 20:07 Resp 16 03/17/20 20:07 BP 103/71 03/17/20 20:07 Pulse Ox 98 03/17/20 20:07 Weight - Most Recent: 84.277 kg I&O - Last 24 hours: Intake & Output 03/17/20 03/18/20 03/18/20 22:59 06:59 14:59 Intake Total 1340 740 Balance 1340 740 Lab Results - Last 24 hrs: Laboratory Results - last 24 hr 03/17/20 03/17/20 03/17/20 Range/Units 10:39 10:39 10:39 WBC 9.62 H (4.23-9.07) K/mm3 RBC 5.25 (4.63-6.08) M/mm3 Hgb 15.5 (13.7-17.5) gm/dl Hct 46.4 (40.1-51.0) % MCV 88.4 (79.0-92.2) fl MCH 29.5 (25.7-32.2) pg MCHC 33.4 (32.2-35.5) g/dl RDW Std Deviation 43.6 (35.1-43.9) fL Plt Count 241 (163-337) K/mm3 MPV 9.3 L (9.4-12.3) fl Neut % (Auto) 70.3 H (34.0-67.9) % Lymph % (Auto) 17.5 L (21.8-53.1) % Ray % (Auto) 11.5 (5.3-12.2) % Eos % (Auto) 0.3 L (0.8-7.0) Baso % (Auto) 0.2 (0.1-1.2) % Neut # (Auto) 6.76 H (1.78-5.38) K/mm3 Lymph # (Auto) 1.68 (1.32-3.57) K/mm3 Ray # (Auto) 1.11 H (0.30-0.82) K/mm3 Eos # (Auto) 0.03 L (0.04-0.54) K/mm3 Baso # (Auto) 0.02 (0.01-0.08) K/mm3 Sodium 144 (136-145) mEq/L Potassium 3.9 (3.5-5.1) mEq/L Chloride 108 H (98-107) mEq/L Carbon Dioxide 24 (21-32) mEq/L Anion Gap 15.9 H (5-15) BUN 15 (7-18) mg/dL Creatinine 0.8 (0.7-1.3) mg/dL Est Cr Clr Drug Dosing 124.06 mL/min Estimated GFR (MDRD) > 60 (>60) mL/min BUN/Creatinine Ratio 18.8 H (14-18) Glucose 109 H (74-106) mg/dL Lactic Acid (0.4-2.0) mmol/L Calcium 8.6 (8.5-10.1) mg/dL Total Bilirubin 0.3 (0.2-1.0) mg/dL AST 16 (15-37) U/L ALT 24 (16-63) U/L Alkaline Phosphatase 61 (46-116) U/L C-Reactive Protein 10.4 H* (<1.0) mg/dL Total Protein 7.7 (6.4-8.2) g/dl Albumin 3.5 (3.4-5.0) g/dl Globulin 4.2 gm/dL Albumin/Globulin Ratio 0.8 L (1-2) 03/17/20 Range/Units 10:39 WBC (4.23-9.07) K/mm3 RBC (4.63-6.08) M/mm3 Hgb (13.7-17.5) gm/dl Hct (40.1-51.0) % MCV (79.0-92.2) fl MCH (25.7-32.2) pg MCHC (32.2-35.5) g/dl RDW Std Deviation (35.1-43.9) fL Plt Count (163-337) K/mm3 MPV (9.4-12.3) fl Neut % (Auto) (34.0-67.9) % Lymph % (Auto) (21.8-53.1) % Ray % (Auto) (5.3-12.2) % Eos % (Auto) (0.8-7.0) Baso % (Auto) (0.1-1.2) % Neut # (Auto) (1.78-5.38) K/mm3 Lymph # (Auto) (1.32-3.57) K/mm3 Ray # (Auto) (0.30-0.82) K/mm3 Eos # (Auto) (0.04-0.54) K/mm3 Baso # (Auto) (0.01-0.08) K/mm3 Sodium (136-145) mEq/L Potassium (3.5-5.1) mEq/L Chloride (98-107) mEq/L Carbon Dioxide (21-32) mEq/L Anion Gap (5-15) BUN (7-18) mg/dL Creatinine (0.7-1.3) mg/dL Est Cr Clr Drug Dosing mL/min Estimated GFR (MDRD) (>60) mL/min BUN/Creatinine Ratio (14-18) Glucose (74-106) mg/dL Lactic Acid 0.8 (0.4-2.0) mmol/L Calcium (8.5-10.1) mg/dL Total Bilirubin (0.2-1.0) mg/dL AST (15-37) U/L ALT (16-63) U/L Alkaline Phosphatase (46-116) U/L C-Reactive Protein (<1.0) mg/dL Total Protein (6.4-8.2) g/dl Albumin (3.4-5.0) g/dl Globulin gm/dL Albumin/Globulin Ratio (1-2) Med Orders - Current: Current Medications Discontinued Medications Acetaminophen (Tylenol) 650 mg PO Q4H PRN PRN Reason: Pain (Mild 1-3)/fever Acetaminophen/Butalbital/Caffeine (Fioricet 325-50-40 Mg) 2 tab PO Q8H PRN PRN Reason: Headaches Last Admin: 03/17/20 14:13 Dose: 2 tab Documented by: Docusate Sodium (Colace) 100 mg PO DAILY [facility] Last Admin: 03/17/20 13:45 Dose: 100 mg Documented by: Hydromorphone HCl (Dilaudid) 0.5 mg IVPUSH ONETIME ONE Stop: 03/17/20 11:01 Last Admin: 03/17/20 11:07 Dose: 0.5 mg Documented by: Piperacillin Sod/Tazobactam (Sod 4.5 gm/ Sodium Chloride) 100 mls @ 200 mls/hr IV ONETIME ONE Stop: 03/17/20 11:04 Last Admin: 03/17/20 10:59 Dose: 200 mls/hr Documented by: Sodium Chloride (Normal Saline) 1,000 mls @ 100 mls/hr IV ASDIRECTED [facility] Last Admin: 03/17/20 14:04 Dose: 100 mls/hr Documented by: Vancomycin HCl 1 gm/Vancomycin HCl 500 mg/ Sodium Chloride 500 mls @ 250 mls/hr IV ONETIME ONE Stop: 03/17/20 15:59 Last Admin: 03/17/20 14:04 Dose: 250 mls/hr Documented by: Vancomycin HCl 1 gm/Vancomycin HCl 250 mg/ Sodium Chloride 250 mls @ 166.667 mls/hr IV Q8H [facility] Last Admin: 03/17/20 22:39 Dose: 166.667 mls/hr Documented by: Ondansetron HCl (Zofran) 4 mg IV Q6H PRN PRN Reason: Nausea/Vomiting Last Admin: 03/17/20 13:45 Dose: 4 mg Documented by: Sodium Chloride (Saline Flush) 10 ml FLUSH ASDIRECTED PRN PRN Reason: Keep Vein Open Last Admin: 03/17/20 10:59 Dose: 10 ml Documented by: Tramadol HCl (Ultram) 100 mg PO Q8H PRN PRN Reason: Pain Last Admin: 03/17/20 22:45 Dose: 100 mg Documented by: Vancomycin HCl (Pharmacy To Dose - Vancomycin) 1 dose .XX ASDIRECTED PRN PRN Reason: RX TO DOSE VANCO - Exam Physical Findings Comments:: Patient left AMA overnight <Armand Holt - Last Filed: 03/18/20 09:23> Discharge Summary - Referral to Home Health Primary Care Physician: Renetta Morris NP - Patient Summary/Data Hospital Course: I have seen and examined the patient independently of Shukri Melgar PA-C. I have reviewed the orders and agree with the plan of care as outlined by him. I have discussed the case with him. Please see orders. The patient signed out AMA. - Patient Data Vitals - Most Recent: Last Vital Signs Temp 36.8 C 03/17/20 20:07 Pulse 79 03/17/20 20:07 Resp 16 03/17/20 20:07 BP 103/71 03/17/20 20:07 Pulse Ox 98 03/17/20 20:07 I&O - Last 24 hours: Intake & Output 03/17/20 03/18/20 03/18/20 22:59 06:59 14:59 Intake Total 1340 740 Balance 1340 740 Lab Results - Last 24 hrs: Laboratory Results - last 24 hr 03/17/20 03/17/20 03/17/20 Range/Units 10:39 10:39 10:39 WBC 9.62 H (4.23-9.07) K/mm3 RBC 5.25 (4.63-6.08) M/mm3 Hgb 15.5 (13.7-17.5) gm/dl Hct 46.4 (40.1-51.0) % MCV 88.4 (79.0-92.2) fl MCH 29.5 (25.7-32.2) pg MCHC 33.4 (32.2-35.5) g/dl RDW Std Deviation 43.6 (35.1-43.9) fL Plt Count 241 (163-337) K/mm3 MPV 9.3 L (9.4-12.3) fl Neut % (Auto) 70.3 H (34.0-67.9) % Lymph % (Auto) 17.5 L (21.8-53.1) % Ray % (Auto) 11.5 (5.3-12.2) % Eos % (Auto) 0.3 L (0.8-7.0) Baso % (Auto) 0.2 (0.1-1.2) % Neut # (Auto) 6.76 H (1.78-5.38) K/mm3 Lymph # (Auto) 1.68 (1.32-3.57) K/mm3 Ray # (Auto) 1.11 H (0.30-0.82) K/mm3 Eos # (Auto) 0.03 L (0.04-0.54) K/mm3 Baso # (Auto) 0.02 (0.01-0.08) K/mm3 Sodium 144 (136-145) mEq/L Potassium 3.9 (3.5-5.1) mEq/L Chloride 108 H (98-107) mEq/L Carbon Dioxide 24 (21-32) mEq/L Anion Gap 15.9 H (5-15) BUN 15 (7-18) mg/dL Creatinine 0.8 (0.7-1.3) mg/dL Est Cr Clr Drug Dosing 124.06 mL/min Estimated GFR (MDRD) > 60 (>60) mL/min BUN/Creatinine Ratio 18.8 H (14-18) Glucose 109 H (74-106) mg/dL Lactic Acid (0.4-2.0) mmol/L Calcium 8.6 (8.5-10.1) mg/dL Total Bilirubin 0.3 (0.2-1.0) mg/dL AST 16 (15-37) U/L ALT 24 (16-63) U/L Alkaline Phosphatase 61 (46-116) U/L C-Reactive Protein 10.4 H* (<1.0) mg/dL Total Protein 7.7 (6.4-8.2) g/dl Albumin 3.5 (3.4-5.0) g/dl Globulin 4.2 gm/dL Albumin/Globulin Ratio 0.8 L (1-2) 03/17/20 Range/Units 10:39 WBC (4.23-9.07) K/mm3 RBC (4.63-6.08) M/mm3 Hgb (13.7-17.5) gm/dl Hct (40.1-51.0) % MCV (79.0-92.2) fl MCH (25.7-32.2) pg MCHC (32.2-35.5) g/dl RDW Std Deviation (35.1-43.9) fL Plt Count (163-337) K/mm3 MPV (9.4-12.3) fl Neut % (Auto) (34.0-67.9) % Lymph % (Auto) (21.8-53.1) % Ray % (Auto) (5.3-12.2) % Eos % (Auto) (0.8-7.0) Baso % (Auto) (0.1-1.2) % Neut # (Auto) (1.78-5.38) K/mm3 Lymph # (Auto) (1.32-3.57) K/mm3 Ray # (Auto) (0.30-0.82) K/mm3 Eos # (Auto) (0.04-0.54) K/mm3 Baso # (Auto) (0.01-0.08) K/mm3 Sodium (136-145) mEq/L Potassium (3.5-5.1) mEq/L Chloride (98-107) mEq/L Carbon Dioxide (21-32) mEq/L Anion Gap (5-15) BUN (7-18) mg/dL Creatinine (0.7-1.3) mg/dL Est Cr Clr Drug Dosing mL/min Estimated GFR (MDRD) (>60) mL/min BUN/Creatinine Ratio (14-18) Glucose (74-106) mg/dL Lactic Acid 0.8 (0.4-2.0) mmol/L Calcium (8.5-10.1) mg/dL Total Bilirubin (0.2-1.0) mg/dL AST (15-37) U/L ALT (16-63) U/L Alkaline Phosphatase (46-116) U/L C-Reactive Protein (<1.0) mg/dL Total Protein (6.4-8.2) g/dl Albumin (3.4-5.0) g/dl Globulin gm/dL Albumin/Globulin Ratio (1-2) Med Orders - Current: Current Medications Discontinued Medications Acetaminophen (Tylenol) 650 mg PO Q4H PRN PRN Reason: Pain (Mild 1-3)/fever Acetaminophen/Butalbital/Caffeine (Fioricet 325-50-40 Mg) 2 tab PO Q8H PRN PRN Reason: Headaches Last Admin: 03/17/20 14:13 Dose: 2 tab Documented by: Docusate Sodium (Colace) 100 mg PO DAILY [facility] Last Admin: 03/17/20 13:45 Dose: 100 mg Documented by: Hydromorphone HCl (Dilaudid) 0.5 mg IVPUSH ONETIME ONE Stop: 03/17/20 11:01 Last Admin: 03/17/20 11:07 Dose: 0.5 mg Documented by: Piperacillin Sod/Tazobactam (Sod 4.5 gm/ Sodium Chloride) 100 mls @ 200 mls/hr IV ONETIME ONE Stop: 03/17/20 11:04 Last Admin: 03/17/20 10:59 Dose: 200 mls/hr Documented by: Sodium Chloride (Normal Saline) 1,000 mls @ 100 mls/hr IV ASDIRECTED [facility] Last Admin: 03/17/20 14:04 Dose: 100 mls/hr Documented by: Vancomycin HCl 1 gm/Vancomycin HCl 500 mg/ Sodium Chloride 500 mls @ 250 mls/hr IV ONETIME ONE Stop: 03/17/20 15:59 Last Admin: 03/17/20 14:04 Dose: 250 mls/hr Documented by: Vancomycin HCl 1 gm/Vancomycin HCl 250 mg/ Sodium Chloride 250 mls @ 166.667 mls/hr IV Q8H [facility] Last Admin: 03/17/20 22:39 Dose: 166.667 mls/hr Documented by: Ondansetron HCl (Zofran) 4 mg IV Q6H PRN PRN Reason: Nausea/Vomiting Last Admin: 03/17/20 13:45 Dose: 4 mg Documented by: Sodium Chloride (Saline Flush) 10 ml FLUSH ASDIRECTED PRN PRN Reason: Keep Vein Open Last Admin: 03/17/20 10:59 Dose: 10 ml Documented by: Tramadol HCl (Ultram) 100 mg PO Q8H PRN PRN Reason: Pain Last Admin: 03/17/20 22:45 Dose: 100 mg Documented by: Vancomycin HCl (Pharmacy To Dose - Vancomycin) 1 dose .XX ASDIRECTED PRN PRN Reason: RX TO DOSE VANCO
== END 2020-03-17 23:04 | disposition left against medical advice (07) ==
LOC: JD.ED 09:40 → JD.MS 11:56
PROVIDERS: ADMIT Internal Medicine; ATTEND Internal Medicine
DX: L03.115 Cellulitis of right lower limb (principal); R51.9 Headache, unspecified; R59.0 Localized enlarged lymph nodes; G90.521 Complex regional pain syndrome I of right lower limb; S77.11XA Crushing injury of right thigh, initial encounter; L40.9 Psoriasis, unspecified; Z88.8 Allergy status to other drugs, medicaments and biological substances
CPT/HCPCS: 36415; 80053; 83605; 85025; 86140; 87040; 96365; 96375; 99284; A9270; J1170; J2405; J2543; J3370; J7030; J7040; J7050; 96366; 96367; 96376; 99236; G0378

== ENCOUNTER 2020-07-21 11:42 | Emergency (ER) | payer OTHER ==
--- NOTE | 2020-07-21 12:46 | EDM.PDOC ---
ED HPI GENERAL MEDICAL PROBLEM - General Chief Complaint: Lower Extremity Injury/Pain Stated Complaint: SURGICAL SITE FROM LEG SURGERY INFECTED Time Seen by Provider: 07/21/20 12:36 Source of Information: Reports: Patient History Limitations: Reports: No Limitations - History of Present Illness INITIAL COMMENTS - FREE TEXT/NARRATIVE: 29-year-old male presents to the ED with severe pain in his right lower extremity starting on dorsal foot and rating up to his knee. Patient had a crush injury to the medial aspect of his right thigh while working on the [employer] in 2017. Since that time he has had troubles with recurrent infection in the right lower extremity requiring hospitalization and IV antibiotics. On 14 June he underwent surgery to the medial aspect of his right thigh as an outpatient at [facility] in [place]. Surgery was performed by plastic surgeon Dr. Clark. Surgery was carried out at the initial crush injury site to remove necrotic tissue felt to be a nidus potentially for recurrent infection in the right lower extremity. Patient presents to the ED with acute onset of redness pain, fever chills nausea and vomiting for the last 48 hours. Patient cannot put any weight on the right foot at all to weight-bear. He was advised to come to the ED for evaluation of possible blood clot in the leg. However it is quite apparent that he has a infection with cellulitis of the right lower extremity following the distribution of the greater saphenous vein. Patient states he is not been able to keep anything down for the last 48 hours. Emesis has been bilious without blood. No diarrhea. No cough or sputum production. Sometimes he will cough after vomiting. Onset: Sudden Onset Date: 07/19/20 (Started to have pain in the right calf 2 days ago.) Duration: Day(s):, Getting Worse Location: Reports: Lower Extremity, Right Quality: Reports: Ache, Throbbing Severity: Severe (Severe pain. 10 out of 10) Improves with: Reports: None Worsens with: Reports: Other (Worse with touching the area or trying to put any weight on the foot.) Context: Reports: Other (Recent surgery medial right thigh for removal of necrotic tissue secondary to a crush type injury to this area in 2017 with recurrent infections right lower extremity.). Denies: Activity, Exercise, Lifting, Sick Contact Associated Symptoms: Reports: Fever/Chills (With rigors.), Loss of Appetite, Malaise, Nausea/Vomiting. Denies: Confusion, Chest Pain, Cough, cough w sputum Treatments MOLDER FLOOR: Reports: Other (see below) (Nothing will stay down.) Right Thigh Pain Score (Numeric/FACES): 10 - Related Data Allergies Allergy/AdvReac Type Severity Reaction Status Date / Time vancomycin Allergy Severe Redness Verified 07/21/20 12:13 antihistamines Allergy Cannot Uncoded 03/17/20 09:53 Remember Home Meds: Home Meds . [No Known Home Meds] 07/21/20 [History] Past Medical History - Past Health History Medical/Surgical History: Denies Medical/Surgical History HEENT History: Reports: Allergic Rhinitis Cardiovascular History: Reports: Heart Murmur Gastrointestinal History: Reports: Colon Polyp, Other (See Below) Other Gastrointestinal History: ischemic colitis, polyp with removal Musculoskeletal History: Reports: Other (See Below) Other Musculoskeletal History: reports a chest injury; crush injury of R lower leg--medial thigh- 11/2016 Neurological History: Reports: Other (See Below) Psychiatric History: Reports: Depression, PTSD Dermatologic History: Reports: Psoriasis Other Dermatologic History: R calf/michelle history of infection - Infectious Disease History Infectious Disease History: Reports: Chicken Pox, Novel Coronavirus - Past Surgical History HEENT Surgical History: Reports: Naso-Sinus Surgery, Oral Surgery GI Surgical History: Reports: Colonoscopy Musculoskeletal Surgical History: Reports: Other (See Below) Other Musculoskeletal Surgeries/Procedures:: tissue removal from right inner thigh (2020) Social & Family History - Family History Family Medical History: No Pertinent Family History - Tobacco Use Tobacco Use Status *Q: Former Tobacco User Used Tobacco, but Quit: Yes Month/Year Tobacco Last Used: 07/2012 - Caffeine Use Caffeine Use: Reports: Soda - Recreational Drug Use Recreational Drug Use: Yes Drug Use in Last 12 Months: Yes Recreational Drug Type: Reports: Marijuana/Hashish Recreational Drug Use Frequency: Monthly - Living Situation & Occupation Living situation: Reports: , with Spouse, with Family (1 child) Occupation: Unemployed Review of Systems - Review of Systems Review Of Systems: See Below Constitutional: Reports: Chills, Fever, Weakness, Other (Constant severe pain right lower extremity) Eyes: Reports: No Symptoms Ears: Reports: No Symptoms Nose: Reports: No Symptoms Mouth/Throat: Reports: No Symptoms Respiratory: Reports: No Symptoms Cardiovascular: Reports: No Symptoms GI/Abdominal: Reports: Decreased Appetite, Nausea, Vomiting (Recurrent vomiting for 2 days.) Genitourinary: Reports: No Symptoms Musculoskeletal: Reports: Other (Diffuse pain medial aspect of right calf up to the knee. Pain dorsal aspect right foot.) Skin: Reports: Erythema (Erythema dorsal aspect right foot and along the greater saphenous vein distribution to the knee medial aspect of right lower extremity very hot and warm to touch and exquisitely painful.) Neurological: Reports: Dizziness, Difficulty Walking (Unable to put any weight on his right foot at this time). Denies: Confusion Psychiatric: Reports: No Symptoms ED EXAM, GENERAL - Physical Exam Exam: See Below Exam Limited By: No Limitations General Appearance: Alert, WD/WN, Moderate Distress, Other (In obvious pain and discomfort. Temperature is elevated at 37.7 C. Heart rate 105 at the bedside. Respiratory rate is 18 with O2 sats of 99% on room air BP 131/84.) Eye Exam: Bilateral Eye: Normal Inspection, PERRL (No scleral icterus or blepharal pallor.) Throat/Mouth: Normal Inspection, Normal Lips, Normal Oropharynx (Tongue is dry and coated.), Other Head: Atraumatic, Normocephalic Neck: Normal Inspection, Supple, Non-Tender, Full Range of Motion. No: Carotid Bruit, Lymphadenopathy (L), Lymphadenopathy (R) Respiratory/Chest: No Respiratory Distress, Lungs Clear, Normal Breath Sounds, No Accessory Muscle Use Cardiovascular: Normal Peripheral Pulses, Regular Rate, Rhythm, No Edema, No Gallop, No Murmur, No Rub, Other (Severe pain on palpation of the dorsalis pedis pulse dorsal aspect of his right foot.) Peripheral Pulses: 3+: Carotid (L), Carotid (R), Posterior Tibial (L), Posterior Tibial (R), Dorsalis Pedis (L), Dorsalis Pedis (R) GI/Abdominal: Normal Bowel Sounds, Soft, Non-Tender, No Organomegaly, No Abnormal Bruit, No Mass, Pelvis Stable, Other (Male) Exam: No Hernia (No significant lymphadenopathy right inguinal area.) Back Exam: Normal Inspection, Full Range of Motion. No: CVA Tenderness (L), CVA Tenderness (R) Extremities: Leg Pain (Severe unable to put any weight or even dorsiflex plantarflex the foot without severe pain in the calf.), Limited Range of Motion (Patient is unable to), Increased Warmth ( dorsiflex or plantarflex the right foot without severe pain in the medial left calf. Obvious increased warmth the entire length of the medial calf in the distribution of the greater saphenous vein and dorsal aspect of the foot.), Other (Left lower extremity is normal. Right lower extremity shows surgical wound with sutures in place medial aspect of the right thigh. This area is not warm to palpation. Patient states he had a drain in this area and was advised to take it out on Monday, July 19 which he did. ). No: Pedal Edema (Clinically no evidence of a DVT.) Neurological: Alert, Oriented, CN II-XII Intact, Normal Cognition, Other Psychiatric: Normal Affect, Normal Mood, Other Skin Exam: Warm, Dry (In a good deal of pain.), Intact, Normal Color, No Rash, Rash (Patient does feel warm to palpation. Cellulitis dorsal aspect of right foot wound along the medial aspect of the right calf to the knee. This is compatible with cellulitis. Concern is for the severity of the pain in the right lower extremity as to whether or not he could be developing a necrotizi) Course - Vital Signs Last Recorded V/S: Last Vital Signs Temp 37.6 C 07/21/20 16:15 Pulse 100 07/21/20 16:15 Resp 16 07/21/20 16:15 BP 124/76 07/21/20 16:15 Pulse Ox 97 07/21/20 16:15 - Orders/Labs/Meds Orders: Active Orders 24 hr Category Date Time Status Chest 1V Frontal [CR] Stat Exams 07/21/20 15:21 Taken Lower Leg wo Cont Rt [CT] Stat Exams 07/21/20 15:17 Taken CULTURE BLOOD [BC] Stat Lab 07/21/20 13:04 Received CULTURE BLOOD [BC] Stat Lab 07/21/20 13:08 Received Blood Culture x2 Reflex Set [OM.PC] Stat Oth 07/21/20 12:50 Ordered Labs: Laboratory Tests 07/21/20 07/21/20 07/21/20 Range/Units 13:04 13:04 13:04 WBC 16.13 H (4.23-9.07) K/mm3 RBC 6.09 H (4.63-6.08) M/mm3 Hgb 18.1 H D (13.7-17.5) gm/dl Hct 52.2 H (40.1-51.0) % MCV 85.7 (79.0-92.2) fl MCH 29.7 (25.7-32.2) pg MCHC 34.7 (32.2-35.5) g/dl RDW Std Deviation 40.0 (35.1-43.9) fL Plt Count 343 H D (163-337) K/mm3 MPV 9.4 (9.4-12.3) fl Neutrophils % (Manual) 73 H (40-60) % Band Neutrophils % 0 (0-10) % Lymphocytes % (Manual) 19 L (20-40) % Atypical Lymphs % 0 % Monocytes % (Manual) 8 (2-10) % Eosinophils % (Manual) 0 L (0.8-7.0) % Basophils % (Manual) 0 L (0.2-1.2) Platelet Estimate Adequate Anisocytosis 1+ slight RBC Morph Comment Abnormal ESR (0-15) mm/hr PT (9.7-12.0) SECONDS INR APTT (21.7-31.4) SECONDS Sodium 141 (136-145) mEq/L Potassium 3.8 (3.5-5.1) mEq/L Chloride 102 (98-107) mEq/L Carbon Dioxide 21 (21-32) mEq/L Anion Gap 21.8 H (5-15) BUN 22 H (7-18) mg/dL Creatinine 1.0 (0.7-1.3) mg/dL Est Cr Clr Drug Dosing 99.24 mL/min Estimated GFR (MDRD) > 60 (>60) mL/min BUN/Creatinine Ratio 22.0 H (14-18) Glucose 95 (70-99) mg/dL Lactic Acid 1.7 (0.4-2.0) mmol/L Calcium 9.6 (8.5-10.1) mg/dL Magnesium 1.6 L (1.8-2.4) mg/dL Total Bilirubin 1.4 H (0.2-1.0) mg/dL AST 16 (15-37) U/L ALT 24 (16-63) U/L Alkaline Phosphatase 62 (46-116) U/L Creatine Kinase 68 (39-308) U/L C-Reactive Protein 2.5 H* (<1.0) mg/dL Total Protein 8.8 H (6.4-8.2) g/dl Albumin 4.3 (3.4-5.0) g/dl Globulin 4.5 gm/dL Albumin/Globulin Ratio 1.0 (1-2) Urine Color (Yellow) Urine Appearance (Clear) Urine pH (5.0-8.0) Ur Specific Minerva (1.005-1.030) Urine Protein (Negative) Urine Glucose (UA) (Negative) Urine Ketones (Negative) Urine Occult Blood (Negative) Urine Nitrite (Negative) Urine Bilirubin (Negative) Urine Urobilinogen (0.2-1.0) Ur Leukocyte Esterase (Negative) Urine RBC (0-5) /hpf Urine WBC (0-5) /hpf Ur Squamous Epith Cells (0-5) /hpf Urine Bacteria (FEW) /hpf Urine Mucus (FEW) /hpf Ketones (0.0-0.3) mM SARS-CoV-2 RNA (MANDEEP) (NEGATIVE) 07/21/20 07/21/20 07/21/20 Range/Units 13:04 13:04 13:04 WBC (4.23-9.07) K/mm3 RBC (4.63-6.08) M/mm3 Hgb (13.7-17.5) gm/dl Hct (40.1-51.0) % MCV (79.0-92.2) fl MCH (25.7-32.2) pg MCHC (32.2-35.5) g/dl RDW Std Deviation (35.1-43.9) fL Plt Count (163-337) K/mm3 MPV (9.4-12.3) fl Neutrophils % (Manual) (40-60) % Band Neutrophils % (0-10) % Lymphocytes % (Manual) (20-40) % Atypical Lymphs % % Monocytes % (Manual) (2-10) % Eosinophils % (Manual) (0.8-7.0) % Basophils % (Manual) (0.2-1.2) Platelet Estimate Anisocytosis RBC Morph Comment ESR 2 (0-15) mm/hr PT 12.3 H (9.7-12.0) SECONDS INR 1.15 APTT 31.2 (21.7-31.4) SECONDS Sodium (136-145) mEq/L Potassium (3.5-5.1) mEq/L Chloride (98-107) mEq/L Carbon Dioxide (21-32) mEq/L Anion Gap (5-15) BUN (7-18) mg/dL Creatinine (0.7-1.3) mg/dL Est Cr Clr Drug Dosing mL/min Estimated GFR (MDRD) (>60) mL/min BUN/Creatinine Ratio (14-18) Glucose (70-99) mg/dL Lactic Acid (0.4-2.0) mmol/L Calcium (8.5-10.1) mg/dL Magnesium (1.8-2.4) mg/dL Total Bilirubin (0.2-1.0) mg/dL AST (15-37) U/L ALT (16-63) U/L Alkaline Phosphatase (46-116) U/L Creatine Kinase (39-308) U/L C-Reactive Protein (<1.0) mg/dL Total Protein (6.4-8.2) g/dl Albumin (3.4-5.0) g/dl Globulin gm/dL Albumin/Globulin Ratio (1-2) Urine Color (Yellow) Urine Appearance (Clear) Urine pH (5.0-8.0) Ur Specific Minerva (1.005-1.030) Urine Protein (Negative) Urine Glucose (UA) (Negative) Urine Ketones (Negative) Urine Occult Blood (Negative) Urine Nitrite (Negative) Urine Bilirubin (Negative) Urine Urobilinogen (0.2-1.0) Ur Leukocyte Esterase (Negative) Urine RBC (0-5) /hpf Urine WBC (0-5) /hpf Ur Squamous Epith Cells (0-5) /hpf Urine Bacteria (FEW) /hpf Urine Mucus (FEW) /hpf Ketones 0.8 (0.0-0.3) mM SARS-CoV-2 RNA (MANDEEP) (NEGATIVE) 07/21/20 07/21/20 Range/Units 13:30 13:30 WBC (4.23-9.07) K/mm3 RBC (4.63-6.08) M/mm3 Hgb (13.7-17.5) gm/dl Hct (40.1-51.0) % MCV (79.0-92.2) fl MCH (25.7-32.2) pg MCHC (32.2-35.5) g/dl RDW Std Deviation (35.1-43.9) fL Plt Count (163-337) K/mm3 MPV (9.4-12.3) fl Neutrophils % (Manual) (40-60) % Band Neutrophils % (0-10) % Lymphocytes % (Manual) (20-40) % Atypical Lymphs % % Monocytes % (Manual) (2-10) % Eosinophils % (Manual) (0.8-7.0) % Basophils % (Manual) (0.2-1.2) Platelet Estimate Anisocytosis RBC Morph Comment ESR (0-15) mm/hr PT (9.7-12.0) SECONDS INR APTT (21.7-31.4) SECONDS Sodium (136-145) mEq/L Potassium (3.5-5.1) mEq/L Chloride (98-107) mEq/L Carbon Dioxide (21-32) mEq/L Anion Gap (5-15) BUN (7-18) mg/dL Creatinine (0.7-1.3) mg/dL Est Cr Clr Drug Dosing mL/min Estimated GFR (MDRD) (>60) mL/min BUN/Creatinine Ratio (14-18) Glucose (70-99) mg/dL Lactic Acid (0.4-2.0) mmol/L Calcium (8.5-10.1) mg/dL Magnesium (1.8-2.4) mg/dL Total Bilirubin (0.2-1.0) mg/dL AST (15-37) U/L ALT (16-63) U/L Alkaline Phosphatase (46-116) U/L Creatine Kinase (39-308) U/L C-Reactive Protein (<1.0) mg/dL Total Protein (6.4-8.2) g/dl Albumin (3.4-5.0) g/dl Globulin gm/dL Albumin/Globulin Ratio (1-2) Urine Color Yellow (Yellow) Urine Appearance Clear (Clear) Urine pH 5.5 (5.0-8.0) Ur Specific Minerva > or = 1.030 (1.005-1.030) Urine Protein 1+ H (Negative) Urine Glucose (UA) Negative (Negative) Urine Ketones 4+ H (Negative) Urine Occult Blood Negative (Negative) Urine Nitrite Negative (Negative) Urine Bilirubin 2+ H (Negative) Urine Urobilinogen 0.2 (0.2-1.0) Ur Leukocyte Esterase Negative (Negative) Urine RBC 0-5 (0-5) /hpf Urine WBC 0-5 (0-5) /hpf Ur Squamous Epith Cells 0-5 (0-5) /hpf Urine Bacteria Few (FEW) /hpf Urine Mucus Few (FEW) /hpf Ketones (0.0-0.3) mM SARS-CoV-2 RNA (MANDEEP) Positive H (NEGATIVE) Meds: Medications Discontinued Medications Generic Name Dose Route Start Last Admin Trade Name Freq PRN Reason Stop Dose Admin Acetaminophen 975 mg 07/21/20 13:24 07/21/20 14:20 Acetaminophen 325 Mg Tab PO 07/21/20 13:25 Not Given ONETIME ONE Al Hydroxide/Mg Hydroxide 30 ml 07/21/20 13:23 07/21/20 14:20 Aluminum Hydroxide/Magnesium Hydroxide/Simethicone Susp 30 Ml Cup PO 07/21/20 13:24 Not Given ONETIME ONE Hydromorphone HCl 1 mg 07/21/20 12:49 07/21/20 13:11 Hydromorphone 1 Mg/Ml Syringe IVPUSH 07/21/20 12:50 1 mg ONETIME ONE Administration Hydromorphone HCl 1 mg 07/21/20 15:21 07/21/20 15:47 Hydromorphone 1 Mg/Ml Syringe IVPUSH 07/21/20 15:22 1 mg ONETIME ONE Administration Dextrose/Sodium Chloride 1,000 mls @ 999 mls/hr 07/21/20 13:00 07/21/20 13:10 Dextrose 5%-Normal Saline IV 999 mls/hr ASDIRECTED IFEANYI Administration Linezolid 600 mg/ Premix 300 mls @ 300 mls/hr 07/21/20 12:52 07/21/20 13:24 IV 07/21/20 13:51 300 mls/hr ONETIME ONE Administration Dextrose/Lactated Ringer's 1,000 mls @ 250 mls/hr 07/21/20 15:30 07/21/20 15:47 Dextrose 5%-Lactated Ringers IV 250 mls/hr ASDIRECTED IFEANYI Administration Metoclopramide HCl 10 mg 07/21/20 12:49 07/21/20 13:11 Metoclopramide 10 Mg/2 Ml Sdv IVPUSH 07/21/20 12:50 10 mg ONETIME ONE Administration Ondansetron HCl 4 mg 07/21/20 15:51 07/21/20 15:55 Ondansetron 4 Mg/2 Ml Sdv IVPUSH 07/21/20 15:52 4 mg ONETIME ONE Administration - Radiology Interpretation Free Text/Narrative:: 29-year-old male presents to the ED with a 2-day history of nausea vomiting of bilious emesis. He is not been able to keep down anything. Patient has severe pain in his right dorsal foot and medial right calf. Developed fever chills and rigors over the last 48 hours. Patient had operative intervention medial aspect of his right thigh on June [address] Clark at [facility] in [place]. This was done as an outpatient. He did have a drain. In this area which she removed on Monday per doctor's orders. Since that time he has developed the onset of increased pain in the right medial thigh and foot and examination shows redness and exquisite tenderness to palpation of the foot or calf and inability to weight-bear. Clinically has significant cellulitis of the medial aspect of the calf. Concern is for possible developing necrotizing fasciitis due to the severity of the pain. Patient is febrile. He is volume depleted clinically. Plan IV D5 normal saline at open. Given Reglan 10 mg IV f or nausea relief. Dilaudid 1 mg IV for pain relief. He will have septic work- up done to include lactic acid and serum ketones. Blood cultures x2. Will be given Tylenol 9 7 5 mg 20 minutes after the Reglan for fever relief. Will be started on antibiotic linezolid 600 mg IV as soon as blood cultures x2 were collected suspecting MRSA as a possible etiology for his right lower extremity infection. Patient has had a previous severe allergic reaction to vancomycin. Consideration for second antibiotic will be discussed with attending physician/hospitalist. - Re-Assessments/Exams Free Text/Narrative Re-Assessment/Exam: 07/21/20 13:24 Patient is still vomiting. Not yet been given. He is requesting something for the burning in his esophagus from vomiting. We will try Maalox 30 mils p.o. to see if he can retain this. 07/21/20 14:09 White count is elevated at 16.13 with 73% neutrophils and no bands cells reported. Hemoglobin is elevated at 18.1 with hematocrit of 52.2 compatible with hemoconcentration. MCV is 85.7. Platelet count slightly elevated at 343,000. Sed rate is 2. Sodium is 141 with a potassium of 3.8. Chloride 102 with a bicarb of 21. Anion gap is elevated at 21.8. BUN is 22 with a creatinine of 1.0. GFR is greater than 60. BUN/creatinine ratio is 22.0. Glucose is 95. Lactic acid is 1.7. Calcium is 9.6. Magnesium is slightly low at 1.6. Total bilirubin is elevated at 1.4. 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 Total CPK is 68. C-reactive protein is 2.5. Total protein is elevated 8.8 with an albumin fraction of 4.3. Urinalysis shows 1+ proteinuria 4+ ketones and 2+ bilirubin. . Serum ketones elevated at 0.8 07/21/20 15:25: I have spoken with Dr Clark-plastic surgeon who did his surgery on June 14 looking for adenitis of infection due to recurrent cellulitis right lower extremity. Decision made to have him admitted to the hospitalist service and I therefore spoke with whom has accepted care. He has asked that I do a CT scan without contrast as the patient is a very allergic to contrast of the right lower extremity. And therefore CT scan will be obtained prior to sending the patient to [place] per ground ambulance. Of note the patient COVID-19 status returned as positive. He was negative prior to surgical procedu re on June 14. He states he is been mostly confined to his home and therefore someone that is visiting him brought him the COVID-19 virus it appears. It is possible that his current nausea and vomiting is secondary to COVID-19. However he has a definitive infection right lower extremity with an elevated white count compatible with cellulitis of the right lower extremity. A one-view portable chest x-ray will be carried out in the ED prior to discharge to [facility] in [place]. Pain is coming back patient will be we have repeat Dilaudid 1 mg IV. Second liter of IV fluids is D5 normal saline at 250 mils per hour. 07/21/20 15:58 Portable chest x-ray reveals heart and mediastinum to be normal. No pneumothorax. Lung parenchyma are clear. No pleural effusion. Normal chest x-ray. CT of the right lower extremity does reveal evidence of soft tissue inflammation particularly at recent surgical site medial distal right thigh. There is also a couple of air bubbles in this area. The area of inflammation extends all the way down to the right ankle medial aspect of the right leg. On my assessment there is no evidence of necrotizing fasciitis. I will await the radiologist pending this regard. Patient is experiencing more nausea at this time. We will give Zofran 4 mg IV. Reglan did cause a mild transient akathisia. 07/21/20 17:[address] of the right lower extremity is now available. Bones and joints appear to be normal with no bone destruction evident no periosteal reaction. There is a skin incision in the medial aspect of the lower right thigh. At the level of the incision there is an area of ill- defined soft tissue density fluid at area with density encompassing a zone of perhaps 61 x 20 x 16 mm. There is thickening of the fascial planes in the regional muscle groups. Minimal edema/fluids tracks deep to the regional fascial planes. The greater saphenous vein courses through this area and appears to be grossly intact as demonstrated with this technique. Precise nature of the surgical procedure has not been provided. Caudal to the incision on the lower portion of the upper leg no soft tissue abnormality is seen. In the medial/posterior medial aspect of the calf, below the knee there is subtle skin thickening and edema in the subcutaneous tissue that tracks caudally and anteriorly to lie anterior to the tibia and anterior to the ankle at the level of the foot. There is skin thickening and subcutaneous edema tracking onto the dorsum of the foot. No focal intramuscular abnormality is identified. No focal fluid collection is seen in the calf below the operative site. No soft tissue gas is reported by the radiologist. Departure - Departure Time of Disposition: 16:30 Disposition: DC/Tfer to Acute Hospital 02 Condition: Fair Clinical Impression: Intractable nausea and vomiting, Fever with chills, Cellulitis of right lower extremity, COVID-19, Volume depletion - Discharge Information *PRESCRIPTION DRUG MONITORING PROGRAM REVIEWED*: Not Applicable *COPY OF PRESCRIPTION DRUG MONITORING REPORT IN PATIENT MATHEW: Not Applicable Referrals: Renetta Morris NP [Primary Care Provider] - Forms: ED Department Discharge Sepsis Event Note (ED) - Evaluation Sepsis Screening Result: No Definite Risk - Focused Exam Vital Signs: Vital Signs Temp Pulse Resp BP Pulse Ox 07/21/20 16:15 37.6 C 100 16 124/76 97 07/21/20 14:47 102 H 16 128/70 96 07/21/20 12:05 37.7 C 104 H 18 131/84 99 - My Orders Last 24 Hours: My Active Orders 07/21/20 12:50 Blood Culture x2 Reflex Set [OM.PC] Stat 07/21/20 13:04 CULTURE BLOOD [BC] Stat 07/21/20 13:08 CULTURE BLOOD [BC] Stat 07/21/20 15:17 Lower Leg wo Cont Rt [CT] Stat 07/21/20 15:21 Chest 1V Frontal [CR] Stat - Assessment/Plan Last 24 Hours: My Active Orders 07/21/20 12:50 Blood Culture x2 Reflex Set [OM.PC] Stat 07/21/20 13:04 CULTURE BLOOD [BC] Stat 07/21/20 13:08 CULTURE BLOOD [BC] Stat 07/21/20 15:17 Lower Leg wo Cont Rt [CT] Stat 07/21/20 15:21 Chest 1V Frontal [CR] Stat
[2020-07-21] MEDS ORDERED: Metoclopramide 10 MG/2 ML SDV IVPUSH ONE (12:49)
[2020-07-21] MEDS ORDERED: HYDROmorphone 1 MG/ML Syringe IVPUSH ONE ×2 (12:49→15:21)
[2020-07-21] MEDS ORDERED: Linezolid 600 MG in Premix Bag 1 BAG IV ONE (12:52)
[2020-07-21] MEDS ORDERED: Dextrose 5%-0.9% NaCl 1,000 ML IV SCH (13:00)
[2020-07-21] MEDS: Aluminum Hydroxide/Magnesium Hydroxide/Simethicone Susp 30 ML Cup PO ONE ×2 (13:30→14:20)
[2020-07-21] MEDS: Acetaminophen 325 MG Tab PO ONE ×2 (13:30→14:20)
[2020-07-21] MEDS ORDERED: Dextrose 5%-Lactated Ringers 1,000 ML IV SCH (15:30)
[2020-07-21] MEDS ORDERED: Ondansetron 4 MG/2 ML SDV IVPUSH ONE (15:51)
--- NOTE | 2020-07-21 19:38 | CR ---
Chest: Portable view of the chest was obtained. Comparison: No prior chest imaging is available. Heart size and mediastinum are normal. Lungs are clear with no acute parenchymal change. No acute osseous abnormality is appreciated. Impression: 1. Nothing acute is seen on portable chest x-ray. Diagnostic code #1
--- NOTE | 2020-07-21 19:38 | CT ---
CT right lower extremity Technique: Multiple axial sections were obtained from the mid thigh level inferiorly through the knee and through the tibia and fibula. Reconstructed coronal and sagittal images were obtained. Comparison: No prior CT study is available. Findings: There is soft tissue air seen within mostly subcutaneous fat within the medial distal thigh. There are soft tissue densities also seen within this area of air presumably representing postoperative change. Saphenous vein is seen to course through this area of surgery. Skin thickening is seen more inferiorly within the lower extremity and within the calf. No focal fluid collection is seen to indicate any definite abscess. No osseous abnormality is appreciated. Impression: 1. Findings felt to be postoperative within the medial distal thigh. 2. Soft tissue thickening within the more distal calf and ankle presumably due to diffuse cellulitis. Differential also includes soft tissue swelling from venous stasis as well as lymphedema. 3. No findings of abscess are seen. Diagnostic code #3 I agree with preliminary report from [facility], finalized on 07/21/20, 5:39 PM CDT, code 1
== END 2020-07-21 16:20 ==
LOC: JD.ED 11:42
DX: U07.1 COVID-19 (principal); L03.115 Cellulitis of right lower limb; R11.2 Nausea with vomiting, unspecified; E86.9 Volume depletion, unspecified; Z87.891 Personal history of nicotine dependence; Z88.1 Allergy status to other antibiotic agents; Z88.8 Allergy status to other drugs, medicaments and biological substances
CPT/HCPCS: 36415; 71045; 73700; 80053; 81001; 82009; 82550; 83605; 83735; 85007; 85027; 85610; 85652; 85730; 86140; 87040; 87635; 96365; 96375; 96376; 99285; J1170; J2020; J2405; J2765; J7042; J7121; A9270-GY; U0002

== ENCOUNTER 2020-09-02 16:51 | Emergency (ER) | payer OTHER ==
--- NOTE | 2020-09-02 17:03 | EDM.PDOC ---
ED HPI GENERAL MEDICAL PROBLEM - General Chief Complaint: Skin Complaint Stated Complaint: RT LEG COMPLAINT Time Seen by Provider: 09/02/20 17:03 - History of Present Illness INITIAL COMMENTS - FREE TEXT/NARRATIVE: 29-year-old male presents the emergency room for evaluation of right leg pain and swelling. He is also had some abdominal discomfort. 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 There has been some concern that he has some autoimmune process going on and he may have vasculitis. According to the patient though the vasculitis has been excluded. We have some old records from [place] and he has been seen by infectious disease. Apparently the patient's had recurrent problems with the cellulitis for several years now this is following an industrial crush injury. Yesterday the patient was doing fine awoke this morning with this. Right Thigh Pain Score (Numeric/FACES): 10 - Related Data Allergies Allergy/AdvReac Type Severity Reaction Status Date / Time vancomycin Allergy Severe Redness Verified 09/02/20 17:05 antihistamines Allergy Severe Cannot Uncoded 09/02/20 17:05 Remember Home Meds: Home Meds . [No Known Home Meds] 07/21/20 [History] Past Medical History - Past Health History Medical/Surgical History: Denies Medical/Surgical History HEENT History: Reports: Allergic Rhinitis Cardiovascular History: Reports: Heart Murmur Gastrointestinal History: Reports: Colon Polyp, Other (See Below) Other Gastrointestinal History: ischemic colitis, polyp with removal Musculoskeletal History: Reports: Other (See Below) Other Musculoskeletal History: reports a chest injury; crush injury of R lower leg--medial thigh- 11/2016 Neurological History: Reports: Other (See Below) Psychiatric History: Reports: Depression, PTSD Dermatologic History: Reports: Psoriasis Other Dermatologic History: R calf/michelle history of infection - Infectious Disease History Infectious Disease History: Reports: Chicken Pox, Novel Coronavirus - Past Surgical History HEENT Surgical History: Reports: Naso-Sinus Surgery, Oral Surgery GI Surgical History: Reports: Colonoscopy Musculoskeletal Surgical History: Reports: Other (See Below) Other Musculoskeletal Surgeries/Procedures:: tissue removal from right inner thigh (2020) Social & Family History - Family History Family Medical History: No Pertinent Family History - Caffeine Use Caffeine Use: Reports: Soda - Living Situation & Occupation Living situation: Reports: , with Spouse, with Family (1 child) Occupation: Unemployed ED ROS GENERAL - Review of Systems Review Of Systems: See Below Constitutional: Reports: No Symptoms HEENT: Reports: No Symptoms Respiratory: Reports: No Symptoms Cardiovascular: Reports: No Symptoms GI/Abdominal: Reports: Abdominal Pain (This has been fairly mild), Nausea, Vomiting : Reports: Dysuria Musculoskeletal: Reports: No Symptoms Skin: Reports: Other (Significant redness developing in the right lower leg and into the thigh. He has had a Z-plasty done on the thigh) Neurological: Reports: No Symptoms ED EXAM, SKIN/RASH Exam: See Below Exam Limited By: No Limitations General Appearance: Alert, No Apparent Distress Ears: Normal External Exam, Normal Canal, Hearing Grossly Normal, Normal TMs Nose: Normal Inspection, Normal Mucosa, No Blood Throat/Mouth: Normal Inspection, Normal Lips, Normal Teeth, Normal Gums, Normal Oropharynx, Normal Voice, No Airway Compromise Head: Atraumatic, Normocephalic Neck: Normal Inspection, Supple, Non-Tender, Full Range of Motion Respiratory/Chest: No Respiratory Distress, Lungs Clear, Normal Breath Sounds Cardiovascular: Regular Rate, Rhythm, No Edema, No Murmur GI/Abdominal: Normal Bowel Sounds, Soft, Other (Normal discomfort vague right- sided no rigidity rebound or guarding) Back Exam: Normal Inspection, CVA Tenderness (L). No: CVA Tenderness (R) Extremities: Normal Inspection, No Pedal Edema Neurological: Alert, Oriented, Normal Cognition Course - Vital Signs Last Recorded V/S: Last Vital Signs Temp 37.2 C 09/02/20 17:00 Pulse 122 H 09/02/20 18:30 Resp 20 09/02/20 18:30 BP 101/58 L 09/02/20 18:30 Pulse Ox 97 09/02/20 18:30 - Orders/Labs/Meds Orders: Active Orders 24 hr Category Date Time Status CORONAVIRUS COVID-19 MANDEEP [MOLEC] Stat Lab 09/02/20 19:46 Ordered CULTURE BLOOD [BC] Stat Lab 09/02/20 17:44 Received CULTURE BLOOD [BC] Stat Lab 09/02/20 17:56 Received REFLEX LACTIC ACID YES OR NO [CHEM] Routine Lab 09/02/20 18:30 Received Blood Culture x2 Reflex Set [OM.PC] Stat Oth 09/02/20 17:28 Ordered Labs: Laboratory Tests 09/02/20 09/02/20 09/02/20 Range/Units 17:30 17:44 17:44 WBC 21.35 H (4.23-9.07) K/mm3 RBC 5.03 (4.63-6.08) M/mm3 Hgb 15.4 D (13.7-17.5) gm/dl Hct 44.4 (40.1-51.0) % MCV 88.3 (79.0-92.2) fl MCH 30.6 (25.7-32.2) pg MCHC 34.7 (32.2-35.5) g/dl RDW Std Deviation 44.6 H (35.1-43.9) fL Plt Count 276 (163-337) K/mm3 MPV 9.5 (9.4-12.3) fl Neutrophils % (Manual) 88 H (40-60) % Band Neutrophils % 0 (0-10) % Lymphocytes % (Manual) 6 L (20-40) % Atypical Lymphs % 0 % Monocytes % (Manual) 6 (2-10) % Eosinophils % (Manual) 0 L (0.8-7.0) % Basophils % (Manual) 0 L (0.2-1.2) Platelet Estimate Adequate RBC Morph Comment Normal PT 12.0 (9.7-12.0) SECONDS INR 1.12 APTT 29.3 (21.7-31.4) SECONDS Sodium (136-145) mEq/L Potassium (3.5-5.1) mEq/L Chloride (98-107) mEq/L Carbon Dioxide (21-32) mEq/L Anion Gap (5-15) BUN (7-18) mg/dL Creatinine (0.7-1.3) mg/dL Est Cr Clr Drug Dosing mL/min Estimated GFR (MDRD) (>60) mL/min BUN/Creatinine Ratio (14-18) Glucose (70-99) mg/dL Lactic Acid (0.4-2.0) mmol/L Calcium (8.5-10.1) mg/dL Total Bilirubin (0.2-1.0) mg/dL AST (15-37) U/L ALT (16-63) U/L Alkaline Phosphatase (46-116) U/L Total Protein (6.4-8.2) g/dl Albumin (3.4-5.0) g/dl Globulin gm/dL Albumin/Globulin Ratio (1-2) Urine Color Yellow (Yellow) Urine Appearance Clear (Clear) Urine pH 8.5 H (5.0-8.0) Ur Specific [place] 1.015 (1.005-1.030) Urine Protein 2+ H (Negative) Urine Glucose (UA) Negative (Negative) Urine Ketones Negative (Negative) Urine Occult Blood Negative (Negative) Urine Nitrite Negative (Negative) Urine Bilirubin Negative (Negative) Urine Urobilinogen 0.2 (0.2-1.0) Ur Leukocyte Esterase Negative (Negative) Urine RBC 0-5 (0-5) /hpf Urine WBC 0-5 (0-5) /hpf Ur Squamous Epith Cells 0-5 (0-5) /hpf Urine Bacteria Few (FEW) /hpf Urine Mucus Few (FEW) /hpf 09/02/20 09/02/20 Range/Units 17:44 17:44 WBC (4.23-9.07) K/mm3 RBC (4.63-6.08) M/mm3 Hgb (13.7-17.5) gm/dl Hct (40.1-51.0) % MCV (79.0-92.2) fl MCH (25.7-32.2) pg MCHC (32.2-35.5) g/dl RDW Std Deviation (35.1-43.9) fL Plt Count (163-337) K/mm3 MPV (9.4-12.3) fl Neutrophils % (Manual) (40-60) % Band Neutrophils % (0-10) % Lymphocytes % (Manual) (20-40) % Atypical Lymphs % % Monocytes % (Manual) (2-10) % Eosinophils % (Manual) (0.8-7.0) % Basophils % (Manual) (0.2-1.2) Platelet Estimate RBC Morph Comment PT (9.7-12.0) SECONDS INR APTT (21.7-31.4) SECONDS Sodium 141 (136-145) mEq/L Potassium 3.8 (3.5-5.1) mEq/L Chloride 104 (98-107) mEq/L Carbon Dioxide 24 (21-32) mEq/L Anion Gap 16.8 H (5-15) BUN 13 (7-18) mg/dL Creatinine 1.1 (0.7-1.3) mg/dL Est Cr Clr Drug Dosing 90.22 mL/min Estimated GFR (MDRD) > 60 (>60) mL/min BUN/Creatinine Ratio 11.8 L (14-18) Glucose 108 H (70-99) mg/dL Lactic Acid 2.1 H* (0.4-2.0) mmol/L Calcium 8.8 (8.5-10.1) mg/dL Total Bilirubin 0.9 (0.2-1.0) mg/dL AST 18 (15-37) U/L ALT 32 (16-63) U/L Alkaline Phosphatase 56 (46-116) U/L Total Protein 7.4 (6.4-8.2) g/dl Albumin 3.9 (3.4-5.0) g/dl Globulin 3.5 gm/dL Albumin/Globulin Ratio 1.1 (1-2) Urine Color (Yellow) Urine Appearance (Clear) Urine pH (5.0-8.0) Ur Specific [place] (1.005-1.030) Urine Protein (Negative) Urine Glucose (UA) (Negative) Urine Ketones (Negative) Urine Occult Blood (Negative) Urine Nitrite (Negative) Urine Bilirubin (Negative) Urine Urobilinogen (0.2-1.0) Ur Leukocyte Esterase (Negative) Urine RBC (0-5) /hpf Urine WBC (0-5) /hpf Ur Squamous Epith Cells (0-5) /hpf Urine Bacteria (FEW) /hpf Urine Mucus (FEW) /hpf Meds: Medications Discontinued Medications Generic Name Dose Route Start Last Admin Trade Name Sophia PRN Reason Stop Dose Admin Lactated Ringer's 1,000 mls @ 999 mls/hr 09/02/20 18:17 Ringers, Lactated IV 09/02/20 19:17 .BOLUS ONE Lactated Ringer's 1,000 mls @ 999 mls/hr 09/02/20 18:19 09/02/20 18:30 Ringers, Lactated IV 09/02/20 19:19 999 mls/hr .BOLUS ONE Administration Piperacillin Sod/Tazobactam 100 mls @ 200 mls/hr 09/02/20 18:58 09/02/20 19:27 Sod 4.5 gm/ Sodium Chloride IV 09/02/20 19:27 200 mls/hr ONETIME ONE Administration Piperacillin Sod/Tazobactam Sod Confirm 09/02/20 19:21 09/02/20 19:49 Piperacillin/Tazobactam 4.5 Gm Advvial Administered 09/02/20 19:22 Not Given Dose 4.5 gm .ROUTE .STK-MED ONE - Re-Assessments/Exams Free Text/Narrative Re-Assessment/Exam: 09/02/20 20:10 Patient was doing okay here in the emergency department he was started on fluid therapy. And given his scenario went ahead and started him on Zosyn 4.5 gr. I was occupied with a much more critical patient for quite some time. However, as time allows I was able to arrange transfer to [facility] in [place] which is where he is received the majority of his care at this time I am awaiting to discuss the situation with with the hospitalist 09/02/20 20:20 The case was discussed with Dr. Barron, hospitalist at [place] in [place]. She is kind enough to accept the patient. Departure - Departure Time of Disposition: 19:49 Disposition: DC/Tfer to [facility] 02 Clinical Impression: Sepsis Cellulitis Qualifiers: Site of cellulitis: extremity Site of cellulitis of extremity: lower extremity Laterality: right Qualified Code(s): L03.115 - Cellulitis of right lower limb - Discharge Information Referrals: Parvin Montesinos MD [Primary Care Provider] - Forms: ED Department Discharge Sepsis Event Note (ED) - Focused Exam Vital Signs: Vital Signs Temp Pulse Resp BP Pulse Ox 09/02/20 18:30 122 H 20 101/58 L 97 09/02/20 17:00 37.2 C 125 H 24 H 122/77 96 - My Orders Last 24 Hours: My Active Orders 09/02/20 17:28 Blood Culture x2 Reflex Set [OM.PC] Stat 09/02/20 17:44 CULTURE BLOOD [BC] Stat 09/02/20 17:56 CULTURE BLOOD [BC] Stat 09/02/20 18:30 REFLEX LACTIC ACID YES OR NO [CHEM] Routine 09/02/20 19:46 CORONAVIRUS COVID-19 MANDEEP [MOLEC] Stat - Assessment/Plan Last 24 Hours: My Active Orders 09/02/20 17:28 Blood Culture x2 Reflex Set [OM.PC] Stat 09/02/20 17:44 CULTURE BLOOD [BC] Stat 09/02/20 17:56 CULTURE BLOOD [BC] Stat 09/02/20 18:30 REFLEX LACTIC ACID YES OR NO [CHEM] Routine 09/02/20 19:46 CORONAVIRUS COVID-19 MANDEEP [MOLEC] Stat
[2020-09-02] MEDS ORDERED: Lactated Ringers 1,000 ML IV ONE ×2 (18:17→18:19)
[2020-09-02] MEDS ORDERED: Piperacillin/Tazobactam 4.5 GM in Sodium Chloride 0.9% 100 ML IV ONE (18:58)
[2020-09-02] MEDS ORDERED: Piperacillin/Tazobactam 4.5 GM AdvVial ONE (19:21)
[2020-09-02] MEDS ORDERED: Linezolid 600 MG in Premix Bag 1 BAG IV ONE (20:17)
[2020-09-02] MEDS ORDERED: Lactated Ringers 1,000 ML IV SCH (20:45)
[2020-09-02] MEDS ORDERED: Ondansetron 4 MG/2 ML SDV IVPUSH ONE (21:50)
== END 2020-09-02 22:15 ==
LOC: JD.ED 16:51
DX: A41.9 Sepsis, unspecified organism (principal); L03.115 Cellulitis of right lower limb; Z88.1 Allergy status to other antibiotic agents; Z88.8 Allergy status to other drugs, medicaments and biological substances; Z86.16 Personal history of COVID-19
CPT/HCPCS: 36415; 80053; 81001; 83605; 85007; 85027; 85610; 85730; 87040; 87635; 96365; 96367; 96375; 99285; J2020; J2405; J2543; J7120; 99284; U0002

== ENCOUNTER 2020-10-03 00:58 | Emergency (ER) | payer OTHER ==
[2020-10-03] MEDS ORDERED: Loperamide 2 MG Cap PO STA (01:27)
[2020-10-03] MEDS ORDERED: HYDROmorphone 0.5 MG/0.5 ML Syringe IVPUSH ONE (01:27)
[2020-10-03] MEDS ORDERED: Ondansetron 4 MG/2 ML SDV IVPUSH ONE (01:27)
[2020-10-03] MEDS ORDERED: Sodium Chloride 0.9% 1,000 ML IV ONE (01:27)
--- NOTE | 2020-10-03 01:30 | EDM.PDOC ---
ED HPI GENERAL MEDICAL PROBLEM - General Chief Complaint: Gastrointestinal Problem Stated Complaint: VOMITING/DIZZY/DIARRHEA/SYNCOPE Time Seen by Provider: 10/03/20 01:09 Source of Information: Reports: Patient History Limitations: Reports: No Limitations - History of Present Illness INITIAL COMMENTS - FREE TEXT/NARRATIVE: Mr. Smith is a very pleasant 29-year-old gentleman who now presents the ED stating that he has been experiencing nausea, vomiting and watery, non-bloody diarrhea for the past 3 days. No recent fever. He states that his symptoms are recurrent, usually associated with a right thigh infection that he repeatedly gets following a crush injury in November 2016. The patient reports that he is currently on Augmentin. He reports that he is also taking a probiotic. The patient denies eating any bad smelling or tasting food recently. No similarly ill close contacts. No recent travel. Here in the ED, the patient is found to be hemodynamically stable, afebrile, saturating 99% on room air. Orthostatics are negative. He appears to be relatively comfortable, in no acute distress, however, he did dry heave once during my evaluation. Prior to 3 days ago, the patient denies having a recent fever, chills, sore throat, ear pain, nasal or sinus congestion, cough, dyspnea, chest pain, palpitations, nausea, vomiting, constipation, diarrhea, abdominal pain, urinary symptoms, recent weight gain or weight loss, recent bloody bowel movements or black bowel movements, recent joint aches, headaches, or rashes. The patient's PCP is Dr. Parvin Montesinos at the [facility]. He does not recall the name of his General Surgeon. His Infectious Disease physicians include Drs. Sandeep Gutierrez and Isadora Saenz. His Plastic Surgeon is Dr. Dudley Macias. His Dermatology midlevel is Anival Pozo NP. He has not received a COVID vaccination. - Related Data Allergies Allergy/AdvReac Type Severity Reaction Status Date / Time vancomycin Allergy Severe Redness Verified 10/03/20 01:29 Iodinated Contrast Media Allergy Anaphylactic Verified 10/03/20 01:29 Shock antihistamines Allergy Severe Cannot Uncoded 10/03/20 01:29 Remember Home Meds: Home Meds . 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) Psychiatric History: Reports: Depression, PTSD Dermatologic History: Reports: Psoriasis - Infectious Disease History Infectious Disease History: Reports: Chicken Pox, Novel Coronavirus (tested + 01/24/2020, Mar 2020, 07/21/2020) - Past Surgical History HEENT Surgical History: Reports: Naso-Sinus Surgery (deviated septum/rhinoplasty), Oral Surgery (dental extractions) GI Surgical History: Reports: Colonoscopy (x 4 or 5) Musculoskeletal Surgical History: Reports: Other (See Below) (Right medial thigh debridement 2020) Social & Family History - Tobacco Use Tobacco Use Status *Q: Former Tobacco User Years of Tobacco use: 8 Packs/Tins Daily: 1 Month/Year Tobacco Last Used: Quit 2013 Tobacco Use Comment: Started smoking at 16 yrs old - Caffeine Use Caffeine Use: Reports: Soda - Alcohol Use Alcohol Use History: No - Recreational Drug Use Recreational Drug Use: Yes Drug Use in Last 12 Months: Yes Recreational Drug Type: Reports: Marijuana/Hashish (smokes daily in 2 week blocks) - Living Situation & Occupation Living situation: Reports: , with Spouse, with Family (1 child) Occupation: Employed ([employer]) ED ROS GENERAL - Review of Systems Review Of Systems: Comprehensive ROS is negative, except as noted in HPI. ED EXAM, GI/ABD - Physical Exam Exam: See Below Exam Limited By: No Limitations General Appearance: Alert, WD/WN, No Apparent Distress Eyes: Bilateral: Normal Appearance, EOMI Ears: Normal External Exam, Hearing Grossly Normal Nose: Normal Inspection Throat/Mouth: Normal Inspection, Normal Lips, Normal Voice, No Airway Compromise Head: Atraumatic, Normocephalic Neck: Normal Inspection, Full Range of Motion Respiratory/Chest: No Respiratory Distress, Lungs Clear, Normal Breath Sounds, No Accessory Muscle Use Cardiovascular: Normal Peripheral Pulses, Regular Rate, Rhythm, No Edema, No Gallop, No JVD, No Murmur, No Rub GI/Abdominal Exam: Normal Bowel Sounds, Soft, No Organomegaly, No Distention, No Abnormal Bruit, No Mass, Tender (Primarily in the right lower quadrant, although also in the left lower quadrant) Back Exam: Normal Inspection, Full Range of Motion, NT Extremities: Normal Range of Motion, Normal Capillary Refill Neurological: Alert, Oriented, Normal Cognition, No Motor/Sensory Deficits Psychiatric: Normal Affect Skin Exam: Warm, Dry, Intact, Normal Color, No Rash Course - Vital Signs Last Recorded V/S: Last Vital Signs Temp 36.6 C 10/03/20 01:09 Pulse 83 10/03/20 01:09 Resp 15 10/03/20 01:09 BP 122/87 10/03/20 01:09 Pulse Ox 100 10/03/20 01:09 Orthostatic Blood Pressure [ 117/75 Standing] Orthostatic Blood Pressure [ 129/78 Supine] - Orders/Labs/Meds Orders: Active Orders 24 hr Category Date Time Status Abdomen Pelvis wo Cont [CT] Stat Exams 10/03/20 01:29 Taken C DIFFICILE PCR W/REFLEX [MOLEC] Stat Lab 10/03/20 01:26 Ordered Labs: Laboratory Tests 10/03/20 10/03/20 Range/Units 01:37 01:37 WBC 4.64 (4.23-9.07) K/mm3 RBC 5.51 (4.63-6.08) M/mm3 Hgb 16.6 (13.7-17.5) gm/dl Hct 47.6 (40.1-51.0) % MCV 86.4 (79.0-92.2) fl MCH 30.1 (25.7-32.2) pg MCHC 34.9 (32.2-35.5) g/dl RDW Std Deviation 44.6 H (35.1-43.9) fL Plt Count 231 (163-337) K/mm3 MPV 9.5 (9.4-12.3) fl Neutrophils % (Manual) 38 L (40-60) % Band Neutrophils % 0 (0-10) % Lymphocytes % (Manual) 47 H (20-40) % Atypical Lymphs % 0 % Monocytes % (Manual) 15 H (2-10) % Eosinophils % (Manual) 0 L (0.8-7.0) % Basophils % (Manual) 0 L (0.2-1.2) Platelet Estimate Adequate RBC Morph Comment Normal Sodium 143 (136-145) mEq/L Potassium 3.8 (3.5-5.1) mEq/L Chloride 105 (98-107) mEq/L Carbon Dioxide 24 (21-32) mEq/L Anion Gap 17.8 H (5-15) BUN 11 (7-18) mg/dL Creatinine 0.8 (0.7-1.3) mg/dL Est Cr Clr Drug Dosing 124.06 mL/min Estimated GFR (MDRD) > 60 (>60) mL/min BUN/Creatinine Ratio 13.8 L (14-18) Glucose 94 (70-99) mg/dL Calcium 8.8 (8.5-10.1) mg/dL Magnesium 1.8 (1.8-2.4) mg/dL Total Bilirubin 0.7 (0.2-1.0) mg/dL AST 78 H (15-37) U/L ALT 104 H (16-63) U/L Alkaline Phosphatase 57 (46-116) U/L Total Protein 8.6 H (6.4-8.2) g/dl Albumin 4.4 (3.4-5.0) g/dl Globulin 4.2 gm/dL Albumin/Globulin Ratio 1.1 (1-2) Lipase 100 (73-393) U/L Meds: Medications Discontinued Medications Generic Name Dose Route Start Last Admin Trade Name Freq PRN Reason Stop Dose Admin Hydromorphone HCl 0.5 mg 10/03/20 01:27 10/03/20 01:40 Hydromorphone 0.5 Mg/0.5 Ml Syringe IVPUSH 10/03/20 01:28 0.5 mg ONETIME ONE Administration Sodium Chloride 1,000 mls @ 999 mls/hr 10/03/20 01:27 10/03/20 01:39 Normal Saline IV 10/03/20 02:27 999 mls/hr ONETIME ONE Administration Loperamide HCl 4 mg 10/03/20 01:27 Loperamide 2 Mg Cap PO 10/03/20 01:28 ONETIME STA Ondansetron HCl 4 mg 10/03/20 01:27 10/03/20 01:40 Ondansetron 4 Mg/2 Ml Sdv IVPUSH 10/03/20 01:28 4 mg ONETIME ONE Administration - Re-Assessments/Exams Free Text/Narrative Re-Assessment/Exam: 10/03/20 01:30 As above, the patient has had nausea, vomiting, and watery diarrhea for the past 3 days. No recent fever. His symptoms are recurrent, somehow correlated with an infection in his right thigh, although he does not believe his right thigh is currently infected. He is currently on Augmentin, and he has been taking a probiotic. Orthostatics at triage were negative. On examination, the patient reports tenderness primarily to his right lower quadrant, although he has some tenderness to his left lower quadrant, as well. I have ordered a work-up that includes several blood tests, a stool for C. difficile by PCR, and a CT of his abdomen and pelvis with oral contrast only; the patient reports an anaphylactic reaction to iodinated contrast. In the meantime, the patient will be treated with some IV Dilaudid, IV Zofran, oral loperamide (after he provides a stool sample) and some IV fluid. 10/03/20 02:16 Notified by Lisy DAVIS that the patient repeatedly vomits with the oral contrast. We will have him stop trying to drink it. 10/03/20 02:29 The patient's CBC is unremarkable. His CMP is remarkable for an AST/ALT mildly elevated at 78/104, respectively, with the remainder of his CMP being unremarkable. His magnesium level is within normal limits at 1.8. His lipase level is within normal limits at 100. The patient has not yet provided a stool sample for the C. difficile by PCR test. Results of the CT of his abdomen and pelvis without contrast are pending. 10/03/20 04:02 CT of the abdomen and pelvis without contrast is read by Irlanda as: 1. Fatty infiltration of the liver. 2. No cause for acute pain is identified. 10/03/20 04:06 Test results discussed with the patient. He has not been able to provide a stool sample. I suspect that he has gastroenteritis. I offered to prescribe some Zofran, but he stated that he already has some at home. He can take OTC loperamide as needed. I would like him to stay adequately hydrated, and I will recommend some mild foods for him to eat if he is hungry. Departure - Departure Time of Disposition: 04:07 Disposition: Home, Self-Care 01 Condition: Good Clinical Impression: Gastroenteritis - Discharge Information *PRESCRIPTION DRUG MONITORING PROGRAM REVIEWED*: Not Applicable *COPY OF PRESCRIPTION DRUG MONITORING REPORT IN PATIENT MATHWE: Not Applicable Instructions: Viral Gastroenteritis, Adult Referrals: Parvin Montesinos MD [Primary Care Provider] - Sandeep Gutierrez MD [Ordering Only Provider] - Isadora Saenz MD [Ordering Only Provider] - Dudley Macias MD [Ordering Only Provider] - Deshaun Pozo NP [Ordering Only Provider] - Forms: ED Department Discharge Additional Instructions: You were seen in the emergency room for 3 days of nausea, vomiting, and diarrhea. Work-up in the ER included positional blood pressure checks, several blood tests, and a CT of your abdomen and pelvis. You were unable to provide us a stool sample to check for C. difficile. Your work-up was entirely unremarkable, and does not explain the cause of your symptoms. Based on your history, physical exam, and ER tests, you are most likely suffering from gastroenteritis. We recommend that you stay adequately hydrated. Water is fine if you are eating something, but Gatorade or Powerade is preferable if you are not eating anything. We recommend that you avoid alcohol. If you are hungry, we recommend that you eat a bland diet, such as rice or oatmeal. Chicken noodle soup with saltine crackers is an excellent choice. You may take your own Zofran as needed for nausea/vomiting. You may take [id number] loperamide (Imodium AD) as needed for diarrhea. Generic loperamide is just as good as brand-name Imodium. Follow the directions carefully - don't take too much, as it can cause constipation quickly. If your symptoms persist, please follow-up with your PCP, Dr. Parvin Montesinos, at the [facility]. If any other problems, please do not hesitate to return to the ER. Sepsis Event Note (ED) - Evaluation Sepsis Screening Result: No Definite Risk - Focused Exam Vital Signs: Vital Signs Temp Pulse Resp BP Pulse Ox 10/03/20 01:09 36.6 C 83 15 122/87 100 - My Orders Last 24 Hours: My Active Orders 10/03/20 01:26 C DIFFICILE PCR W/REFLEX [MOLEC] Stat 10/03/20 01:29 Abdomen Pelvis wo Cont [CT] Stat - Assessment/Plan Last 24 Hours: My Active Orders 10/03/20 01:26 C DIFFICILE PCR W/REFLEX [MOLEC] Stat 10/03/20 01:29 Abdomen Pelvis wo Cont [CT] Stat
--- NOTE | 2020-10-03 08:55 | CT ---
CT abdomen and pelvis Technique: Multiple axial sections were obtained from above the dome of the diaphragm inferiorly through the pubic symphysis. Small amount of oral contrast was given. No intravenous contrast was utilized. Reconstructed coronal and sagittal images were obtained. Comparison: No prior CT abdomen study is available, prior CT pelvis study of 08/14/18 is available. Findings: Visualized lung bases are clear. Liver shows no focal parenchymal abnormality. No findings of fatty liver infiltration are seen on this exam. Spleen size is normal. Adrenal glands show no nodule. Pancreas shows no discrete abnormality. Gallbladder contains no calcified gallstones. Kidneys show no abnormal calcifications. No ureteral dilatation or ureteral stone is seen. Abdominal aorta shows no aneurysm. No retroperitoneal adenopathy or mesenteric abnormalities are seen. Appendix is seen which is normal. No pelvic mass or adenopathy is seen. No bowel dilatation is seen. Bone window settings were reviewed which show mild disc space narrowing and posterior spurring at L5-S1. No acute osseous abnormality is otherwise seen. Impression: 1. Slight disc space narrowing and posterior spurring at L5-S1. This is similar to prior CT pelvis study of 08/14/18. 2. Nothing acute is otherwise seen on CT study of the abdomen and pelvis. Diagnostic code #2 I agree with preliminary report from [facility], finalized on 10/03/20, 5:00 AM CDT, code 1
== END 2020-10-03 04:17 | disposition home or self-care (01) ==
LOC: JD.ED 00:58
DX: K52.9 Noninfective gastroenteritis and colitis, unspecified (principal); Z88.1 Allergy status to other antibiotic agents; Z91.041 Radiographic dye allergy status; Z88.8 Allergy status to other drugs, medicaments and biological substances; Z86.16 Personal history of COVID-19; Z87.891 Personal history of nicotine dependence
CPT/HCPCS: 36415; 74176; 80053; 83690; 83735; 85007; 85027; 96374; 96375; 99284; J1170; J2405; J7030

== ENCOUNTER 2021-03-10 18:43 | Emergency (ER) | payer OTHER ==
[2021-03-10] MEDS ORDERED: cefTRIAXone 1 GM, Lidocaine 1% 2.1 ML IM ONE ×2 (19:16)
== END 2021-03-10 20:00 | disposition home or self-care (01) ==
LOC: JD.ED 18:43
DX: L03.115 Cellulitis of right lower limb (principal); E66.9 Obesity, unspecified; Z68.28 Body mass index [BMI] 28.0-28.9, adult; Z88.1 Allergy status to other antibiotic agents; Z87.891 Personal history of nicotine dependence; Z91.041 Radiographic dye allergy status; Z88.8 Allergy status to other drugs, medicaments and biological substances
CPT/HCPCS: 96372; 99283; J0696

== ENCOUNTER 2021-06-07 07:12 | Emergency (ER) | payer OTHER | END 2021-06-07 08:16 | disposition home or self-care (01) | LOC: JD.ED 07:12 | DX: R21 Rash and other nonspecific skin eruption (principal); R20.8 Other disturbances of skin sensation; E66.9 Obesity, unspecified; Z88.1 Allergy status to other antibiotic agents; Z91.041 Radiographic dye allergy status; Z88.8 Allergy status to other drugs, medicaments and biological substances; Z68.28 Body mass index [BMI] 28.0-28.9, adult | CPT/HCPCS: 99283 ==

== ENCOUNTER 2021-11-08 21:39 | Emergency (ER) | payer OTHER ==
[2021-11-08] MEDS ORDERED: Sodium Chloride 0.9% 10 ML Syringe FLUSH PRN (22:01)
[2021-11-08] MEDS ORDERED: LORazepam 2 MG/ML SDV IVPUSH ONE (22:02)
[2021-11-08] MEDS ORDERED: Sodium Chloride 0.9% 1,000 ML IV ONE (22:42)
== END 2021-11-09 03:45 | disposition home or self-care (01) ==
LOC: JD.ED 21:39
DX: R25.2 Cramp and spasm (principal); R06.4 Hyperventilation; E87.6 Hypokalemia; E66.9 Obesity, unspecified; Z68.27 Body mass index [BMI] 27.0-27.9, adult; Z88.1 Allergy status to other antibiotic agents; Z91.041 Radiographic dye allergy status; Z88.8 Allergy status to other drugs, medicaments and biological substances
CPT/HCPCS: 36415; 80053; 83735; 85025; 96361; 96374; 99283; J2060; J3490; J7030

== ENCOUNTER 2022-01-27 14:06 | Emergency (ER) | payer OTHER ==
[2022-01-27] MEDS ORDERED: HYDROmorphone 0.5 MG/0.5 ML Syringe IVPUSH ONE ×2 (16:22→18:36)
[2022-01-27] MEDS ORDERED: Sodium Chloride 0.9% 10 ML Syringe FLUSH PRN (16:22)
[2022-01-27] MEDS ORDERED: Ondansetron 4 MG/2 ML SDV IVPUSH ONE (16:22)
[2022-01-27] MEDS ORDERED: Sodium Chloride 0.9% 1,000 ML IV STA (16:22)
[2022-01-27] MEDS ORDERED: Dexamethasone 4 MG/ML SDV IVPUSH ONE (18:36)
[2022-01-27] MEDS ORDERED: Ketorolac 30 MG/ML SDV IVPUSH ONE (18:36)
== END 2022-01-27 20:30 | disposition home or self-care (01) ==
LOC: JD.ED 14:06
DX: G89.18 Other acute postprocedural pain (principal); R07.0 Pain in throat; E66.9 Obesity, unspecified; Z68.27 Body mass index [BMI] 27.0-27.9, adult; Z88.1 Allergy status to other antibiotic agents; Z91.041 Radiographic dye allergy status; Z88.8 Allergy status to other drugs, medicaments and biological substances; Z79.899 Other long term (current) drug therapy
CPT/HCPCS: 36415; 70490; 80053; 85025; 86140; 96361; 96374; 96375; 96376; 99283; J1100; J1170; J1885; J2405; J3490; J7030

== ENCOUNTER 2024-09-19 09:34 | Day surgery (SDC) | payer OTHER ==
[~2024-09-19 09:34] MED LIST: Sodium Chloride 0.9% 10 ML Syringe FLUSH PRN; Sodium Chloride 0.9% 10 ML Syringe FLUSH SCH
[2024-09-19] MEDS: Lactated Ringers 1,000 ML IV SCH (10:40)
[2024-09-19] MEDS ORDERED: Propofol 200 MG/20 ML SDV ONE (11:13)
== END 2024-09-19 12:32 | disposition home or self-care (01) ==
LOC: JD.SDS 09:34
PROVIDERS: ATTEND Surgery
DX: K62.5 Hemorrhage of anus and rectum (principal); K62.89 Other specified diseases of anus and rectum; Z88.8 Allergy status to other drugs, medicaments and biological substances; Z87.19 Personal history of other diseases of the digestive system; Z86.0100 Personal history of colon polyps, unspecified; Z79.899 Other long term (current) drug therapy; Z91.041 Radiographic dye allergy status
CPT/HCPCS: 43239; 45378; J2003; J2704; J7120; 00813; 88305

== ENCOUNTER 2024-10-28 14:10 | Emergency (ER) | payer OTHER ==
[2024-10-28] MEDS ORDERED: Sodium Chloride 0.9% 10 ML Syringe FLUSH PRN (14:47)
[2024-10-28 15:25] LABS: BASOPHILS ABSOLUTE AUTO 0.1 K/mm3 (0.0-0.2); BASOPHILS PERCENT AUTO 0.5 % (0.0-1.0); EOSINOPHILS ABSOLUTE AUTO 0.0 K/mm3 (0.0-0.4); EOSINOPHILS PERCENT AUTO 0.4 % (0.0-6.0); IMMATURE GRAN ABSOLUTE AUTO 0.04 K/mm3 (0.00-0.05); IMMATURE GRAN PERCENT AUTO 0.4 % (0.0-0.4); LYMPHOCYTES ABSOLUTE AUTO 2.5 K/mm3 (1.0-4.8); LYMPHOCYTES PERCENT AUTO 23.6 % (24.0-44.0); MEAN PLATELET VOLUME 9.4 fl (9.4-12.4); MONOCYTES ABSOLUTE AUTO 0.9 K/mm3 (0.0-0.8); MONOCYTES PERCENT AUTO 8.3 % (0.0-8.0); NEUTROPHILS ABSOLUTE AUTO 7.0 K/mm3 (1.8-7.7); NEUTROPHILS PERCENT AUTO 66.8 % (41.0-71.0); NRBC ABSOLUTE 0.00 (0.00-0.02); NRBC PERCENT 0.0 % (0.0-0.2); PLATELET COUNT,PLT 281 K/mm3 (150-400); RED BLOOD CELL COUNT 5.76 M/mm3 (4.52-5.90); WHITE BLOOD CELL COUNT,WBC 10.47 K/mm3 (3.9-11.3)
[2024-10-28] MEDS: Ondansetron 4 MG/2 ML SDV IVPUSH ONE (15:27)
[2024-10-28 15:48] LABS: A/G RATIO 1.2 (1-2); ALANINE AMINOTRANSFERASE,ALT 25.0 U/L (16-63); ASPARTATE AMNIOTRANSFERASE,AST 15.0 U/L (15-37); BILIRUBIN TOTAL 1.2 mg/dL (0.2-1.0); BLOOD UREA NITROGEN,BUN 17.0 mg/dL (7-18); CARBON DIOXIDE,CO2 21.0 mEq/L (21-32); CHLORIDE,CL 106.0 mEq/L (98-107); CREATININE 0.9 mg/dL (0.7-1.3); EST CRCL DRUG DOSING (CG) 105.35 mL/min; ESTIMATED GFR 116.0 mL/min (>60); GLUCOSE RANDOM 83.0 mg/dL (70-99); POTASSIUM,K 3.9 mEq/L (3.5-5.1); PROTEIN TOTAL,TP 8.0 g/dl (6.4-8.2); SODIUM,NA 142.0 mEq/L (136-145)
[2024-10-28 16:06] LABS: APPEARANCE,URINE CLEAR (Clear); GLUCOSE,URINE NEGATIVE (Negative); OCCULT BLOOD,URINE NEGATIVE (Negative)
[2024-10-28 16:19] LABS: EPITHELIAL CELLS,URINE 0-5 /hpf (0-5)
== END 2024-10-28 18:50 | disposition home or self-care (01) ==
LOC: JD.ED 14:10
DX: K52.9 Noninfective gastroenteritis and colitis, unspecified (principal); K59.00 Constipation, unspecified; K64.8 Other hemorrhoids; Z88.1 Allergy status to other antibiotic agents; Z91.041 Radiographic dye allergy status; Z88.8 Allergy status to other drugs, medicaments and biological substances; Z79.899 Other long term (current) drug therapy; Z86.16 Personal history of COVID-19
CPT/HCPCS: 36415; 74176; 80053; 81001; 83690; 85025; 96361; 96374; 96375; 99284; J2405; J7030; J1171

== ENCOUNTER 2024-10-31 13:04 | Emergency (ER) | payer OTHER ==
[2024-10-31] MEDS ORDERED: Sodium Chloride 0.9% 10 ML Syringe FLUSH PRN (13:59)
[2024-10-31 14:49] LABS: BASOPHILS ABSOLUTE AUTO 0.1 K/mm3 (0.0-0.2); BASOPHILS PERCENT AUTO 0.5 % (0.0-1.0); EOSINOPHILS ABSOLUTE AUTO 0.0 K/mm3 (0.0-0.4); EOSINOPHILS PERCENT AUTO 0.0 % (0.0-6.0); IMMATURE GRAN ABSOLUTE AUTO 0.04 K/mm3 (0.00-0.05); IMMATURE GRAN PERCENT AUTO 0.3 % (0.0-0.4); LYMPHOCYTES ABSOLUTE AUTO 1.9 K/mm3 (1.0-4.8); LYMPHOCYTES PERCENT AUTO 15.6 % (24.0-44.0); MEAN PLATELET VOLUME 9.0 fl (9.4-12.4); MONOCYTES ABSOLUTE AUTO 0.9 K/mm3 (0.0-0.8); MONOCYTES PERCENT AUTO 7.6 % (0.0-8.0); NEUTROPHILS ABSOLUTE AUTO 9.2 K/mm3 (1.8-7.7); NEUTROPHILS PERCENT AUTO 76.0 % (41.0-71.0); NRBC ABSOLUTE 0.00 (0.00-0.02); NRBC PERCENT 0.0 % (0.0-0.2); PLATELET COUNT,PLT 302 K/mm3 (150-400); RED BLOOD CELL COUNT 5.75 M/mm3 (4.52-5.90); WHITE BLOOD CELL COUNT,WBC 12.08 K/mm3 (3.9-11.3)
[2024-10-31] MEDS: Ondansetron 4 MG/2 ML SDV IVPUSH ONE (14:51)
[2024-10-31 14:54] LABS: A/G RATIO 1.2 (1-2); ALANINE AMINOTRANSFERASE,ALT 21.0 U/L (16-63); ASPARTATE AMNIOTRANSFERASE,AST 16.0 U/L (15-37); BILIRUBIN TOTAL 1.4 mg/dL (0.2-1.0); BLOOD UREA NITROGEN,BUN 13.0 mg/dL (7-18); CARBON DIOXIDE,CO2 14.0 mEq/L (21-32); CHLORIDE,CL 103.0 mEq/L (98-107); CREATININE 0.9 mg/dL (0.7-1.3); EST CRCL DRUG DOSING (CG) 105.35 mL/min; ESTIMATED GFR 116.0 mL/min (>60); GLUCOSE RANDOM 70.0 mg/dL (70-99); POTASSIUM,K 4.6 mEq/L (3.5-5.1); PROTEIN TOTAL,TP 8.7 g/dl (6.4-8.2); SODIUM,NA 139.0 mEq/L (136-145); TSH 1.354 uIU/mL (0.358-3.74)
[2024-10-31] MEDS: Ketorolac 15 MG/ML SDV IVPUSH ONE (14:54)
[2024-10-31 16:27] LABS: APPEARANCE,URINE CLEAR (Clear); GLUCOSE,URINE NEGATIVE (Negative); OCCULT BLOOD,URINE TRACE-LYSED (Negative)
[2024-10-31 16:43] LABS: BUPRENORPHINE SCREEN,URINE NEGATIVE (CUTOFF=10); METHADONE SCREEN, URINE NEGATIVE (CUT0FF=200); METHAMPHETAMINES SCREEN, URINE NEGATIVE (CUTOFF=500); OXYCODONE SCREEN,URINE NEGATIVE (CUT0FF=100); THC SCREEN,URINE 20 NG/ML PRESUMPTIVE POSITIVE (CUTOFF=50)
[2024-10-31 16:49] LABS: AMPHETAMINES SCREEN, URINE NEGATIVE (CUTOFF=500)
[2024-10-31 17:13] LABS: SQUAMOUS EPITHELIAL CELLS,UR 0-5 /hpf (0-5)
[2024-10-31] MEDS: Alum Hydrox/Mag Hydrox/Simeth 30 ML, Lidocaine 2% 15 ML PO ONE (18:00)
[2024-10-31] MEDS: diphenhydrAMINE 50 MG/ML SDV IVPUSH ONE (18:00)
[2024-10-31] MEDS: droPERidol 2.5 MG/ML SDV IV ONE ×2 (18:00)
== END 2024-10-31 18:40 | disposition home or self-care (01) ==
LOC: JD.ED 13:04
DX: R11.2 Nausea with vomiting, unspecified (principal); R07.9 Chest pain, unspecified; R10.9 Unspecified abdominal pain; E66.9 Obesity, unspecified; Z88.1 Allergy status to other antibiotic agents; Z91.041 Radiographic dye allergy status; Z88.8 Allergy status to other drugs, medicaments and biological substances; Z79.899 Other long term (current) drug therapy; Z86.16 Personal history of COVID-19; Z68.28 Body mass index [BMI] 28.0-28.9, adult
CPT/HCPCS: 36415; 71045; 74176; 80053; 80306; 81001; 83690; 83735; 84443; 84484; 85025; 93005; 96361; 96374; 96375; 99285; A9270; J1885; J2405; J3490; J7030; 93010; 99284